=== PATIENT | female | born 1960 | race Caucasian/White ===

== ENCOUNTER 2018-03-15 08:29 | Inpatient (IN) ==
[2018-03-15] MEDS ORDERED: SODIUM CHLORIDE 0.9% 1000ML 2,000 ML IV ONE (08:37)
[2018-03-15] MEDS ORDERED: methylPREDNISolone 125 MG/2 ML VIAL IV STA (08:37)
[2018-03-15] MEDS ORDERED: ALBUT/IPRATROP 3MG/0.5MG NEB 3 ML VIAL NEB ONE (08:37)
[2018-03-15] MEDS ORDERED: ALBUT/IPRATROP 3MG/0.5MG NEB 3 ML VIAL ONE (08:40)
[2018-03-15] MEDS ORDERED: RAPID SEQUENCE INDUCTION BAG ONE (08:46)
[2018-03-15] MEDS ORDERED: KETAMINE HCL INJ 50 MG/ML 10 ML VIAL IV STA (08:48)
[2018-03-15 08:57] LABS: Basophils # (auto) 0.02 K/uL (0-0.2); Basophils % (auto) 0.2 %; Eosinophils # (auto) 0.01 K/uL (0-0.5); Eosinophils % (auto) 0.1 %; Hematocrit (blood only) 33.1 % (37-47); Hemoglobin 10.8 g/dL (12.0-16.0); Immature Granulocytes # (auto) 0.05 K/uL (0.00-0.02); Immature Granulocytes % (auto) 0.4 %; Lymphocytes # (auto) 1.51 K/uL (1.2-3.4); Lymphocytes % (auto) 11.7 %; Mean Corpuscular Hgb Conc 32.6 g/dL (32-36); Mean Corpuscular Volume 97.1 fL (80-100); Mean Platelet Volume 9.5 fL (7.4-10.4); Monocytes # (auto) 1.44 K/uL (0.11-0.59); Monocytes % (auto) 11.1 %; Neutrophils # (auto) 9.89 K/uL (1.4-6.5); Neutrophils % (auto) 76.5 %; Platelet Count 314 K/uL (130-400); RDW Coefficient of Variation 13.8 % (11.5-14.5); RDW Standard Deviation 48.9 fL (36.4-46.3); Red Blood Count 3.41 M/uL (4.2-5.4); White Blood Count 12.92 K/uL (4.8-10.8)
[2018-03-15] MEDS ORDERED: AZITHROMYCIN 500 MG/255 ML BAG IV ONE (08:58)
[2018-03-15] MEDS ORDERED: CEFEPIME 1,000 MG in SYRINGE 0 ML IV STA (08:58)
[2018-03-15] MEDS ORDERED: MIDAZOLAM HCL 5 MG/ML VIAL IV ONE (09:03)
[2018-03-15] MEDS ORDERED: KETAMINE HCL INJ 50 MG/ML 10 ML VIAL IV ONE (09:03)
--- NOTE | 2018-03-15 09:05 | XRay Report ---
XR chest 1V portable CLINICAL HISTORY: Sepsis. COMPARISON STUDY: No previous studies for comparison. FINDINGS: There is no pneumothorax or pleural effusion. There is no consolidation or evidence for pul monary edema. Cardiac size is normal. Mediastinal contours are normal. A 9 mm nodular density project s over the left lower lung. There is possible underlying emphysema. IMPRESSION: 1. No acute cardiopulmonary findings. 2. Possible underlying emphysema. 3. 9 mm nodular density which projects over the left lower lung. This favors a nipple shadow however a pulmonary nodule could appear similar. Nonemergent PA and shallow oblique radiographs of the chest are recommended. Electronically signed by: Moreno Fernandes M.D. 03/15/2018 9:04 AM
[2018-03-15 09:09] LABS: INR 0.9 (0.9-1.1); Partial Thromboplastin Time 25.7 Seconds (21.0-31.0); Prothrombin Time 9.4 Seconds (9.0-12.0)
[2018-03-15 09:11] LABS: Alanine Aminotransferase 13 U/L (12-78); Albumin Level 3.2 gm/dl (3.4-5.0); Aspartate Aminotransferase 12 U/L (15-37); BUN Creatinine Ratio 16.3 (10-20); Bilirubin Direct < 0.1 mg/dl (0-0.2); Blood Urea Nitrogen 11 mg/dl (7-18); Calcium 8.1 mg/dl (8.5-10.1); Carbon Dioxide 26 mmol/L (21-32); Chloride 104 mmol/L (98-107); Creatinine Clr Calc Pharmacy 69.9 ml/min; Est GFR (African American) 113.1; Est GFR (Non-African American) 97.6; Glucose 110 mg/dl (70-99); Magnesium 2.2 mg/dl (1.8-2.4); Potassium 4.2 mmol/L (3.5-5.1); Sodium 138 mmol/L (136-145)
[2018-03-15] MEDS ORDERED: MIDAZOLAM HCL 5 MG/ML 1 ML VIAL IV STA (09:12)
[2018-03-15 09:18] LABS: iSTAT Arterial Blood Gas HCO3 25 meg/L (19-24); iSTAT Carbon Dioxide 27 mEq/l (24-31)
[2018-03-15 09:18] LABS: iSTAT Hemoglobin 10.9 g/dl (12.0-16.0); iSTAT Ionized Calcium 1.18 mmol/l (1.12-1.32)
[2018-03-15 09:33] LABS: Albumin Globulin Ratio 0.8 (0.9-2); Alkaline Phosphatase 48 U/L (45-117); Bilirubin,Total 0.3 mg/dl (0.2-1); NT Pro B Type Natriuretic Pept 234 pg/ml (0-900); Phosphorus 3.1 mg/dl (2.5-4.9); Total Protein 7.2 gm/dl (6.4-8.2); Troponin I 0.156 ng/ml (0-0.045)
[2018-03-15] MEDS ORDERED: CEFEPIME 2,000 MG/20 ML VIAL ONE (09:33)
[2018-03-15] MEDS: MAGNESIUM SULFATE / D5W 1 GM/100 ML BAG IV SCH ×2 (09:34→11:10)
--- NOTE | 2018-03-15 10:31 | History & Physical Report ---
Date of Service March 15, 2018 Assessment & Plan (1) Acute respiratory failure with hypoxia and hypercapnia: This is a 57yo F with PMH of COPD and anxiety who presents with shortness of breath and acute respiratory failure. -Initially hypertensive at 153/117, tachycardic at 118, tachypneic at 45 and febrile at 37.7 -ABG with mild respiratory acidosis: pH 7.32, pCO2: 49, HCO3: 25 -Placed on BiPAP with improved respiratory status -Transitioned to nasal cannula and is saturating well at 96% on 3 L NC -Assistant Merchandise Manager to manage in ICU for now (2) COPD exacerbation: Mild leukocytosis at 12.5k, normal lactic acid, Flu PCR negative -CXR without evidence of infiltrates -History of COPD, recently quit smoking -Received cefepime and azithromycin in ED -Will continue abx coverage with ceftriaxone and azithromycin, per Dr. Milan -Adelita-medrol 40mg Q6H, Duonebs QIDR, Symbicort -Will need to establish out-patient pulm upon discharge (3) NSTEMI (non-ST elevated myocardial infarction): Troponin elevated at 0.156 initially in the setting of respiratory distress -Likely 2/2 demand ischemia -EKG with sinus tachycardia, possible ST depression in anterolateral leads -Denies chest pain on exam -Trend troponin Q6H -Echo ordered DVT Ppx: SQ heparin Code status: FULL PCP: In transition of moving to [place]. Will need to establish care. Dispo: Admitted to ICU. Discharge planning ordered. Patient seen in collaboration with Dr. Villalpando. Please see addendum. History of Present Illness Chief Complaint: Respiratory failure Primary Care Provider: NO PCP This is a 57yo F with PMH of COPD and anxiety who presents with shortness of breath and acute respiratory failure. Obtained history from boyfriend at bedside since patient is on BiPAP. Patient has been reporting flu-like symptoms for one week and started to experience dyspnea on exertion yesterday. Was reportedly unable to ambulate in home due to shortness of breath. Boyfriend came back from work this morning at 7am and found patient wheezing and in respiratory distress, so he called EMS and patient was brought to ED for further evaluation. Patient in the process of moving from [place] to [place] so has yet to establish a PCP here. Unable to provide current medication list during interview but boyfriend is working to obtain a list. Reportedly stopped smoking cigarettes 3 weeks ago. Endorsing fever, chills, cough, dyspnea on exertion, wheezing and feeling anxious. Denies any confusion, chest pain or palpitations. Allergies Allergy/AdvReac Type Severity Reaction Status Date / Time No Known Allergies Allergy Unverified 03/15/18 09:16 Home Medications Home Medications Medication Instructions Recorded Confirmed Type albuterol sulfate [Ventolin HFA] 2 puff INHALATION QID PRN 03/15/18 03/15/18 History budesonide-formoterol [Symbicort] 2 puff INHALATION BID 03/15/18 03/15/18 History cholecalciferol (vitamin D3) 1,000 unit PO DAILY 03/15/18 03/15/18 History [Vitamin D3] gabapentin 300 mg PO QID 03/15/18 03/15/18 History Past Med/Surg History Medical History COPD (chronic obstructive pulmonary disease) (Chronic) Anxiety (Chronic) Chronic back pain (Chronic) Surgical History H/O hernia repair (Resolved) Family History Other Family history non-contributory Social History marital status: Current Living Situation: Significant Other Other Information That Helps Us Care for You: No Feels Safe at Home: Yes Safety Concerns: Feels Safe At This Time Smoking Status: Current some day smoker Tobacco Type: cigarettes Cigarettes per Day: occasional use Second Hand Exposure: Yes Tobacco Cessation Education Requested by Patient: No Hx Alcohol Use: Yes Alcohol type: beer and wine Alcohol Intake Frequency: a few times a month Hx Substance Use: No Beliefs That Will Affect Care: None Preferred Language: Cameroonian Communication Ability: Effective Suspender Maker Required: No Review of Systems All systems reviewed & are unremarkable except as noted in HPI & below Physical Exam 2 Vital Signs (Past 24 Hours): Last Vital Signs Temp 37.7 C H 03/15/18 08:40 Pulse 121 H 03/15/18 10:04 Resp 32 H 03/15/18 10:04 BP 134/78 03/15/18 09:51 Pulse Ox 100 03/15/18 10:04 Physical Exam: General Appearance: WD/WN, in distress from acute illness, anxious wearing BiPAP Head: normocephalic, atraumatic Eyes: normal inspection, PERRL, EOMI ENT: hearing grossly normal, pharynx normal Neck: supple, no JVD, no adenopathy Respiratory/Chest: Diffuse expiratory wheezes and rhonci in bilateral lung gale. No rales. +respiratory distress or accessory muscle use when speaking Cardiovascular: tachycardic, regular rhythm, no murmur, normal peripheral pulses Abdomen/GI: normal bowel sounds, soft, non-tender to palpation Extremities/Musculoskelatal: normal inspection, no calf tenderness, normal capillary refill, no pedal edema Neurologic/Psych: alert, normal mood/affect, oriented x 3 Skin: normal color, warm/dry Results & Data Laboratory Results Short CBC 03/15/18 Range/Units 08:40 WBC 12.92 H (4.8-10.8) K/uL Hgb 10.8 L (12.0-16.0) g/dL Hct 33.1 L (37-47) % Plt Count 314 (130-400) K/uL BMP 03/15/18 08:40 Sodium 138 Potassium 4.2 Chloride 104 Carbon Dioxide 26 BUN 11 Creatinine 0.67 Glucose 110 H Calcium 8.1 L Cardiac Enzymes 03/15/18 Range/Units 08:40 Troponin I 0.156 H* (0-0.045) ng/ml Liver Function 03/15/18 Range/Units 08:40 Total Bilirubin 0.3 (0.2-1) mg/dl Direct Bilirubin < 0.1 (0-0.2) mg/dl AST 12 L (15-37) U/L ALT 13 (12-78) U/L Alkaline Phosphatase 48 (45-117) U/L Albumin 3.2 L (3.4-5.0) gm/dl Diagnostic Findings CXR: IMPRESSION: 1. No acute cardiopulmonary findings. 2. Possible underlying emphysema. 3. 9 mm nodular density which projects over the left lower lung. This favors a nipple shadow however a pulmonary nodule could appear similar. Non-emergent PA and shallow oblique radiographs of the chest are recommended. ECG Rhythm: sinus tachycardia Code Status & VTE Plan Code Status FULL VTE Prophylaxis Plan VTE Prophylaxis will be ordered: Yes Supervising Physician Co-Signing Physician Notes Attending addendum The patient was seen and examined in ICU She denies to have any chest pain or palpitation. No abdominal pain, nausea and /or vomiting She has history of severe COPD and anxiety disorder was admitted with acute exacerbation of COPD She required BiPAP in the ER and she was admitted to ICU No pneumonia noted in chest x-ray On examination Moderate distress at rest Saturating well all with BiPAP Hemodynamically stable Chest-decreased breath sounds all over. Minimal wheezing Heart-S1-S2, regular Abdomen-benign Extremities-negative Admission labs and imaging studies noted Has severe COPD with respiratory failure secondary to infective exacerbation Agree with assessment and plan as outlined above by Benita Villalpando
[2018-03-15 10:35] LABS: Influenza A virus by PCR Neg for Influ A (Neg); Influenza B virus by PCR Neg for Influ B (Neg)
[2018-03-15] MEDS ORDERED: ICU PROTOCOL FOR HYPERGLYCEMIA PRN (10:48)
[2018-03-15 11:43] LABS: Appearance Urine Clear (Clear); Bilirubin Urine Negative (Negative); Color Urine Yellow; Glucose Urine UA 3+ (Negative); Ketones Urine Negative (Negative); Leukocyte Esterase Urine Negative (Negative); Nitrite Urine Negative (Negative); Protein Urine Negative (Negative); Urobilinogen Urine Negative (Negative)
[2018-03-15] MEDS ORDERED: cefTRIAXone SODIUM 1,000 MG in DEXTROSE 5% 50 ML IV SCH (12:00)
[2018-03-15] MEDS ORDERED: INFLUENZA ADMINISTRATION CHARGE ONE (12:45)
[2018-03-15] MEDS ORDERED: INFLUENZA VIRUS QUAD VACCINE 0.5 ML SYR IM ONE (12:45)
[2018-03-15] MEDS: BUDESONIDE/FORMOTEROL FUMARATE 160/4.5 60 PUFFS/INHALER INH SCH ×2 (13:08→21:30)
[2018-03-15] MEDS: HEPARIN SOD 5,000 UNIT/0.5 ML VIAL SQ SCH ×2 (14:01→21:30)
[2018-03-15] MEDS: ALBUT/IPRATROP 3MG/0.5MG NEB 3 ML VIAL NEB SCH ×4 (14:02→23:09)
--- NOTE | 2018-03-15 14:06 | Critical Care Consultation ---
Date of Consultation March 15, 2018 Assessment & Plan (1) COPD (chronic obstructive pulmonary disease): Impression: 1. Acute hypoxic and hypercapnic respiratory failure secondary to COPD exacerbation. 2. Acute exacerbation of COPD, gold level 2, patient active smoker, grade B. 3. Non-ST elevation VT, possible type II. 4. Likely patient has cor pulmonale, bicarb and PCO2 are both elevated. 5. Anxiety and claustrophobia, cannot tolerate BiPAP very well. Plan: 1. I would discontinue the BiPAP for now. 2. Start the patient on high dose of steroids 1 mg/kg per dose every 6 hours. 3. Continue ceftriaxone and azithromycin. 4. Repeat chest x-ray in the morning. 5. Oral intake. 6. GI and DVT prophylaxis. 7. Since the patient cannot tolerate the BiPAP, I would take her off, I doubt that she would escalate at this point to needing mechanical ventilation. 8. Start the patient on Symbicort 2 puffs twice daily. 9. Continue with DuoNeb on a regular basis every 4 hours. 10. She will need outpatient follow-up with pulmonary function test if she desires. 11. Discussed with the patient, the family, the staff, and Dr. Villalpando at the bedside. 12. We will trend the troponin and obtain echocardiogram. Critical care time spent with the patient was 60 minutes. History of Present Illness Reason for Consultation: Acute respiratory failure Requesting Physician: Dr. Villalpando Attending Physician: Allison Villalpando MD History of Present Illness Dear data: Thank you for the kind referral of Mrs. Beauchamp to critical care service. This is a 57-year-old female who is active smoker, with history of COPD, has been maintained on inhalers which she does not remember the name of them, has been doing well up until 4 days ago when she started having increasing cough and shortness of breath. Up until today when she started having increasing shortness of breath to the point that she has to come into the ED, in the ED the patient was found to be extremely short of breath and she has to be placed on the BiPAP, she could not tolerate the BiPAP due to claustrophobia, was given a dose of ketamine for relaxation. The patient was given steroids as well as azithromycin and ceftriaxone and admitted to the ICU for further management. When I interviewed the patient, she was bothered with the BiPAP as well, her respiratory status has improved and we took her off the BiPAP and she tolerated nasal cannula nicely. Her respiratory rate has been variable, O2 saturation has been maintained, she denies previous episodes like this in the past. She did have an admission to the hospital due to COPD exacerbation over a year ago. The patient is active smoker and she has been using Chantix to quit smoking. She denies any nausea or vomiting but she did have chest heaviness that started today. Her dyspnea on exertion was limited to only less than a block. Her was at the bedside and confirmed these findings. No hemoptysis and no sputum production was reported. No abdominal pain, change in bowel movements or urine habits, no increased swelling in her lower extremities, neurologically she is intact, no visual disturbances and no headache, no skin changes and no swelling in any joints. Rest of her review of system was unremarkable. Her past medical history significant for COPD, active smoker, claustrophobia and anxiety. Her family history does not contribute to her current illness. She had more than [id number] history of smoking, and she does not have any industrial exposure. Allergies Allergy/AdvReac Type Severity Reaction Status Date / Time No Known Allergies Allergy Unverified 03/15/18 09:16 Home Medications Home Medications Medication Instructions Recorded Confirmed Type Unobtainable 03/15/18 03/15/18 History Patient History Medical History COPD (chronic obstructive pulmonary disease) (Chronic) Anxiety (Chronic) Social History marital status: Current Living Situation: Significant Other Other Information That Helps Us Care for You: No Feels Safe at Home: Yes Safety Concerns: Feels Safe At This Time Smoking Status: Current some day smoker Tobacco Type: cigarettes Cigarettes per Day: occasional use Second Hand Exposure: Yes Tobacco Cessation Education Requested by Patient: No Hx Alcohol Use: Yes Alcohol type: beer and wine Alcohol Intake Frequency: a few times a month Hx Substance Use: No Beliefs That Will Affect Care: None Preferred Language: Slovak Communication Ability: Effective Reel System Operator Required: No Review of Systems Review of system including 14 systems has been reviewed, unremarkable except for the above. Physical Exam 2 Vital Signs (Past 24 Hours): Last Vital Signs Temp 36.9 C 03/15/18 11:30 Pulse 104 H 03/15/18 12:00 Resp 45 H 03/15/18 12:00 BP 117/73 03/15/18 12:00 Pulse Ox 97 03/15/18 12:00 Physical Exam: Vital signs are stable, S1-S2 regular rate and rhythm, no fever , O2 sats 97% on 3 L, no JVP, no stridor, lungs with wheezing bilaterally, abdomen is benign, no edema. Results & Data Laboratory Results Her labs were reviewed which showed leukocytosis, stable hematocrit, she does have mild bandemia and left shift, her ABG showed 7.3 2/49/193/25, and her BMP is normal. Troponin is elevated at 0.15. Diagnostic Findings EKG showed ST depression in anterolateral leads, chest x-ray showed hyperinflated lungs no significant infiltrate. Microbiology profile showed negative influenza a and B.
--- NOTE | 2018-03-15 14:32 | Emergency Department Note ---
Entered by Albina Vang acting as a scribe for History of Present Illness General Chief complaint: Respiratory Distress Source: patient and EMS Mode of arrival: EMS Limitations: other (respiratory failure) History of Present Illness Provider complaint: Respiratory distress Onset (ago): hour(s) (this morning) Location: mouth and chest Pain Consistency: + other (worsening) Quality: + other (respiratory distress) Relieved By: + none Associated symptoms: + diaphoresis, + fever/chills, + shortness of breath and + other (Additional symptoms: anxiety, hot to the touch, body aches) The patient is a 57 year old female with no significant past medical history who presents to the Emergency Room with complaints of worsening respiratory distress starting this morning. EMS suspects that the patient began feeling short of breath around 0400 today and took a nebulizer treatment with no relief. They report that she subsequently tried to go to the bathroom but "ran out of steam" on the way there. They note that she did not fall to the ground. The patient's spouse reportedly found the patient lying in the hallway when he returned home from work. Per EMS, the patient was very anxious and hot to the touch upon arrival at the scene. EMS states that the patient has been complaining of body aches, fevers, chills, and diaphoresis for the past 4 days. They note that she takes nebulizers and uses inhalers but is not normally on O2 at home. The patient reports that she did not receive the flu shot this year and has not smoked for the past 2 months. HPI limited secondary to respiratory failure. Home Medications Home Medications Medication Instructions Recorded Confirmed Type albuterol sulfate [Ventolin HFA] 2 puff INHALATION QID PRN 03/15/18 03/15/18 History budesonide-formoterol [Symbicort] 2 puff INHALATION BID 03/15/18 03/15/18 History cholecalciferol (vitamin D3) 1,000 unit PO DAILY 03/15/18 03/15/18 History [Vitamin D3] gabapentin 300 mg PO QID 03/15/18 03/15/18 History Allergies Allergy/AdvReac Type Severity Reaction Status Date / Time No Known Allergies Allergy Unverified 03/15/18 09:16 Past Med/Surg History Medical History COPD (chronic obstructive pulmonary disease) (Chronic) Anxiety (Chronic) Chronic back pain (Chronic) Surgical History H/O hernia repair (Resolved) Family History Other Family history non-contributory Social History marital status: Current Living Situation: Significant Other Other Information That Helps Us Care for You: No Feels Safe at Home: Yes Safety Concerns: Feels Safe At This Time Smoking Status: Current some day smoker Tobacco Type: cigarettes Cigarettes per Day: occasional use Second Hand Exposure: Yes Tobacco Cessation Education Requested by Patient: No Hx Alcohol Use: Yes Alcohol type: beer and wine Alcohol Intake Frequency: a few times a month Hx Substance Use: No Beliefs That Will Affect Care: None Preferred Language: [place] Communication Ability: Effective Airport Screener Required: No Review of Systems Other (Limited secondary to respiratory failure) Physical Exam Vital Signs Vital Signs - 24 hr 03/15/18 08:40 03/15/18 08:53 03/15/18 08:55 Temperature 37.7 C H Temperature Source Axillary Sepsis Recent Fever Within 48 Hours Yes Sepsis New/Unexplained Change in Mental Status No Sepsis Action Taken by Nursing No Action Required Pulse Rate 118 H 111 H Pulse Rate [Apical] Pulse Rhythm Regular Pulse Rhythm [Apical] Pulse Strength Normal Pulse Strength [Apical] Respiratory Rate 45 H 27 H Respiratory Effort / Characteristics Accessory Muscle Use Gasping/Agonal Spontaneous Accessory Muscle Use Labored Short of Breath Respiratory Depth Shallow Deep Respiratory Pattern Gasping Rapid/Shallow Rapid/Deep Tachypnea Blood Pressure Blood Pressure [Left Arm] Blood Pressure Mean Blood Pressure Mean [Left Arm] Blood Pressure Position Lying Blood Pressure Position [Left Arm] Pulse Oximetry 97 99 Oxygen Delivery Method CPAP Oxygen Flow Rate Fraction of Inspired Oxygen 40 30 03/15/18 09:08 03/15/18 09:11 03/15/18 09:29 Temperature Temperature Source Sepsis Recent Fever Within 48 Hours Sepsis New/Unexplained Change in Mental Status Sepsis Action Taken by Nursing Pulse Rate Pulse Rate [Apical] 111 H Pulse Rhythm Pulse Rhythm [Apical] Regular Pulse Strength Pulse Strength [Apical] Normal Respiratory Rate 28 H 24 36 H Respiratory Effort / Characteristics Respiratory Depth Shallow Shallow Respiratory Pattern Regular Regular Blood Pressure Blood Pressure [Left Arm] 153/117 H Blood Pressure Mean Blood Pressure Mean [Left Arm] 129 Blood Pressure Position Blood Pressure Position [Left Arm] Pulse Oximetry 98 98 100 Oxygen Delivery Method BiPAP BiPAP BiPAP Oxygen Flow Rate Fraction of Inspired Oxygen 40 03/15/18 09:51 03/15/18 10:04 03/15/18 10:42 Temperature Temperature Source Sepsis Recent Fever Within 48 Hours Sepsis New/Unexplained Change in Mental Status Sepsis Action Taken by Nursing Pulse Rate 121 H 119 H Pulse Rate [Apical] 126 H Pulse Rhythm Pulse Rhythm [Apical] Regular Pulse Strength Pulse Strength [Apical] Normal Respiratory Rate 32 H 32 H 36 H Respiratory Effort / Characteristics Spontaneous Accessory Muscle Use Labored Short of Breath Respiratory Depth Shallow Deep Respiratory Pattern Regular Rapid/Deep Tachypnea Blood Pressure Blood Pressure [Left Arm] 134/78 Blood Pressure Mean Blood Pressure Mean [Left Arm] 96 Blood Pressure Position Blood Pressure Position [Left Arm] Pulse Oximetry 100 100 99 Oxygen Delivery Method BiPAP BiPAP Oxygen Flow Rate Fraction of Inspired Oxygen 30 03/15/18 11:30 03/15/18 12:00 03/15/18 13:01 Temperature 36.9 C Temperature Source Oral Sepsis Recent Fever Within 48 Hours Sepsis New/Unexplained Change in Mental Status Sepsis Action Taken by Nursing Pulse Rate 104 H 111 H Pulse Rate [Apical] 104 H Pulse Rhythm Pulse Rhythm [Apical] Regular Pulse Strength Pulse Strength [Apical] Normal Respiratory Rate 37 H 45 H 33 H Respiratory Effort / Characteristics Spontaneous Short of Breath SOB on Exertion Respiratory Depth Normal Respiratory Pattern Tachypnea Blood Pressure 117/73 95/84 L Blood Pressure [Left Arm] 104/77 Blood Pressure Mean 87 87 Blood Pressure Mean [Left Arm] 86 Blood Pressure Position Blood Pressure Position [Left Arm] Lying Pulse Oximetry 96 97 96 Oxygen Delivery Method Nasal Cannula Oxygen Flow Rate 3 Fraction of Inspired Oxygen 03/15/18 14:00 03/15/18 15:35 03/15/18 20:00 Temperature 37.6 C H Temperature Source Oral Sepsis Recent Fever Within 48 Hours Sepsis New/Unexplained Change in Mental Status Sepsis Action Taken by Nursing Pulse Rate 92 H Pulse Rate [Apical] 95 H 81 Pulse Rhythm Pulse Rhythm [Apical] Regular Pulse Strength Pulse Strength [Apical] Respiratory Rate 15 24 26 H Respiratory Effort / Characteristics Spontaneous Spontaneous Labored Short of Breath SOB on Exertion Respiratory Depth Shallow Respiratory Pattern Tachypnea Blood Pressure 106/69 Blood Pressure [Left Arm] 115/76 Blood Pressure Mean 81 Blood Pressure Mean [Left Arm] 89 Blood Pressure Position Blood Pressure Position [Left Arm] Pulse Oximetry 96 98 98 Oxygen Delivery Method Nasal Cannula Nasal Cannula Oxygen Flow Rate 3 3 Fraction of Inspired Oxygen GENERAL: Awake, alert, severe respiratory distress HENT: Normocephalic, atraumatic. Oropharynx with dry/cracked mucous membranes and otherwise unremarkable. . EYES: Normal conjunctiva. Sclera non-icteric. NECK: Supple. No nuchal rigidity. FROM. No JVD. RESPIRATORY: Diminished breath sounds throughout with prolonged expiratory wheeze. Labored breathing with retractions. CARDIAC: Tachycardic rate, normal rhythm. Extremities warm and well perfused. Pulses equal. ABDOMEN: Soft, non-distended. No tenderness to palpation. No rebound or guarding. No masses. RECTAL: Deferred. MUSCULOSKELETAL: Chest examination reveals no tenderness. The back is symmetrical on inspection without obvious abnormality. There is no CVA tenderness to palpation. No joint edema. LOWER EXTREMITIES: Calves are equal size bilaterally and non-tender. No edema. No discoloration. NEURO: Normal sensorium. No sensory or motor deficits noted. SKIN: No rash or jaundice noted. Course 0829: Past medical records reviewed. The patient was evaluated in room B1, and a complete history and physical examination were performed. 0908: I checked on the patient and she claimed that she is seeing "jelly beans floating around" at the moment. 0911: The nurse informed me that the patient refused to keep her breathing mask on, so I checked on the patient. 0912: I reviewed the patient's case with Sara De Anda. Dr. Milan will evaluate the patient for management in the ICU. 0922: Upon reevaluation, the patient is resting. I discussed the findings and the treatment plan with the her. She expresses agreement and understanding. 0928: I reviewed the patient's case with Gilberto Galvan PA-C. Benita will evaluate the patient for admission. Consultations Consultation #1: I reviewed the patient's case with Sara De Anda. Dr. Milan will evaluate the patient for further management. Time: 09:12 Consultation #2: I reviewed the patient's case with Gilberto Galvan PA-CAmari Joy will evaluate the patient for admission. Time: 09:28 Administered Medications Hydrocodone Bitart/Acetaminophen ([place] 5/325) 1 tab PO HS PRN PRN Reason: Pain Stop: 03/29/18 21:17 Last Admin: 03/15/18 21:29 Dose: 1 tab Albuterol (Duoneb) 3 ml NEB Q4R STELLA Stop: 04/14/18 11:59 Last Admin: 03/15/18 19:57 Dose: 3 ml Admin: 03/15/18 15:20 Dose: 3 ml Admin: 03/15/18 14:02 Dose: Not Given Budesonide/Formoterol Fumarate (Symbicort 160mcg/4.5mcg) 2 puffs INH BID STELLA Stop: 04/14/18 11:44 Last Admin: 03/15/18 21:30 Dose: 2 puffs Admin: 03/15/18 13:08 Dose: 2 puffs Gabapentin (Neurontin) 300 mg PO TID STELLA Stop: 04/14/18 20:59 Last Admin: 03/15/18 19:33 Dose: 300 mg Heparin Sodium (Porcine) (Heparin Sodium (Porcine)) 5,000 units SQ Q8 STELLA Stop: 04/14/18 13:59 Last Admin: 03/15/18 21:30 Dose: 5,000 units Admin: 03/15/18 14:01 Dose: 5,000 units Methylprednisolone 60 mg/ (Syringe) 0.96 mls @ 1.5 mls/min IV Q6H STELLA Stop: 04/14/18 15:59 Last Admin: 03/15/18 21:59 Dose: 1.5 mls/min Admin: 03/15/18 15:49 Dose: 1.5 mls/min Ceftriaxone Sodium 1,000 mg/ (Dextrose) 50 mls @ 100 mls/hr IV Q24H STELLA; Protocol Stop: 03/22/18 11:59 Last Infusion: 03/15/18 13:11 Dose: 0 mls/hr Admin: 03/15/18 12:16 Dose: 100 mls/hr Discontinued Medications Albuterol (Duoneb) 12 ml NEB ONE ONE Stop: 03/15/18 08:38 Last Admin: 03/15/18 09:42 Dose: Not Given Albuterol (Duoneb) Confirm Administered Dose 12 ml .ROUTE .STK-MED ONE Stop: 03/15/18 08:41 Last Admin: 03/15/18 09:43 Dose: Not Given Cefepime HCl (Maxipime) Confirm Administered Dose 2,000 mg .ROUTE .STK-MED ONE Stop: 03/15/18 09:34 Last Admin: 03/15/18 09:44 Dose: Not Given Sodium Chloride (Nss 1000ml) 2,000 mls @ 999 mls/hr IV .Q2H1M ONE Stop: 03/15/18 10:37 Last Infusion: 03/15/18 10:50 Dose: 0 mls/hr Admin: 03/15/18 08:53 Dose: 999 mls/hr Azithromycin (Zithromax) 500 mg in 255 mls @ 127.5 mls/hr IV NOW ONE Stop: 03/15/18 10:57 Last Infusion: 03/15/18 11:38 Dose: 0 mls/hr Admin: 03/15/18 09:24 Dose: 127.5 mls/hr Cefepime HCl 1,000 mg/ Syringe 11.3 mls @ 5.5 mls/min IV NOW STA Stop: 03/15/18 09:00 Last Admin: 03/15/18 09:34 Dose: 5.5 mls/min Magnesium Sulfate/Dextrose (Magnesium Sulfate / D5w) 1 gm in 100 mls @ 100 mls/ hr IV Q1H STELLA Stop: 03/15/18 11:14 Last Infusion: 03/15/18 12:14 Dose: 0 mls/hr Admin: 03/15/18 11:10 Dose: 100 mls/hr Infusion: 03/15/18 10:34 Dose: 100 mls/hr Admin: 03/15/18 09:34 Dose: 100 mls/hr Ketamine HCl (Ketalar Steri-Vial) 75 mg IV NOW STA Stop: 03/15/18 08:49 Last Admin: 03/15/18 08:52 Dose: 75 mg Methylprednisolone (Solumedrol) 125 mg IV NOW STA Stop: 03/15/18 08:38 Last Admin: 03/15/18 08:57 Dose: 125 mg Midazolam HCl (Versed) 1 mg IV NOW STA Stop: 03/15/18 09:13 Last Admin: 03/15/18 09:19 Dose: 1 mg Miscellaneous () Confirm Administered Dose 1 ea .ROUTE .Pro Stream +-Wyst ONE Stop: 03/15/18 08:47 Last Admin: 03/15/18 09:43 Dose: 1 ea Medical Decision Making Differential Diagnosis Differential diagnosis: Etiologies such as infections, reactive airway disease, COPD, pneumonia, pleural effusion, pulmonary edema, ARDS, pneumothorax, CHF, cardiac ischemia, cardiac tamponade, dysrhythmia, anemia, pulmonary embolism, musculoskeletal, gastrointestinal process, as well as others were entertained. Medical Records Attestation: I reviewed the patient's medical records. Home Medications Current Medication List: was personally reviewed by me Laboratory Data Attestation: I reviewed the patient's lab results. Result diagrams: 03/15/18 08:40 03/15/18 08:40 Lab Results 03/15/18 03/15/18 03/15/18 Range/Units 08:40 08:40 08:40 WBC 12.92 H (4.8-10.8) K/uL RBC 3.41 L (4.2-5.4) M/uL Hgb 10.8 L (12.0-16.0) g/dL POC Hgb (12.0-16.0) g/dl Hct 33.1 L (37-47) % POC Hct (37-47) % MCV 97.1 (80-100) fL MCH 31.7 (25-34) pg MCHC 32.6 (32-36) g/dL RDW Std Deviation 48.9 H (36.4-46.3) fL RDW Coeff of Jose 13.8 (11.5-14.5) % Plt Count 314 (130-400) K/uL MPV 9.5 (7.4-10.4) fL Immature Gran % (Auto) 0.4 % Neut % (Auto) 76.5 % Lymph % (Auto) 11.7 % Burke % (Auto) 11.1 % Eos % (Auto) 0.1 % Baso % (Auto) 0.2 % Immature Gran # (Auto) 0.05 H (0.00-0.02) K/uL Neut # (Auto) 9.89 H (1.4-6.5) K/uL Lymph # (Auto) 1.51 (1.2-3.4) K/uL Burke # (Auto) 1.44 H (0.11-0.59) K/uL Eos # (Auto) 0.01 (0-0.5) K/uL Baso # (Auto) 0.02 (0-0.2) K/uL PT 9.4 (9.0-12.0) Seconds INR 0.9 (0.9-1.1) APTT 25.7 (21.0-31.0) Seconds PTT Ratio 1.0 POC pH (7.35-7.45) POC pCO2 (35-46) mmHg POC pO2 (80-95) mmHg POC HCO3 (19-24) parish/L POC Base Excess (-9-1.8) parish/L POC ABG O2 Sat (90-95) % POC Sodium (135-144) mEq/L Sodium (136-145) mmol/L POC Potassium (3.3-5.0) mEq/L Potassium (3.5-5.1) mmol/L POC Chloride (101-112) mEq/L Chloride (98-107) mmol/L Carbon Dioxide (21-32) mmol/L POC Total CO2 (24-31) mEq/l Anion Gap (3-11) POC Anion Gap (16-25) mmol/L POC BUN (7-18) mg/dl BUN (7-18) mg/dl Creatinine (0.6-1.2) mg/dl POC Creatinine (0.6-1.3) mg/dl Est Cr Clr Drug Dosing ml/min Est GFR ( Amer) Est GFR (Non-Af Amer) BUN/Creatinine Ratio (10-20) Glucose (70-99) mg/dl POC Glucose (70-99) POC Glucose (other) (70-99) mg/dl Lactate 1.1 (0.4-2.0) mmol/L Calcium (8.5-10.1) mg/dl POC Ioniz Calcium Lucy (1.12-1.32) mmol/l Phosphorus (2.5-4.9) mg/dl Magnesium (1.8-2.4) mg/dl Total Bilirubin (0.2-1) mg/dl Direct Bilirubin (0-0.2) mg/dl AST (15-37) U/L ALT (12-78) U/L Alkaline Phosphatase (45-117) U/L Troponin I (0-0.045) ng/ml NT-Pro-B Natriuret Pep (0-900) pg/ml Total Protein (6.4-8.2) gm/dl Albumin (3.4-5.0) gm/dl Globulin (2.5-4.0) gm/dl Albumin/Globulin Ratio (0.9-2) TSH (0.300-4.500) uIu/ml Urine Color Urine Appearance (Clear) Urine pH (4.5-7.5) Ur Specific [place] (1.000-1.030) Urine Protein (Negative) Urine Glucose (UA) (Negative) Urine Ketones (Negative) Urine Blood (Negative) Urine Nitrite (Negative) Urine Bilirubin (Negative) Urine Urobilinogen (Negative) Ur Leukocyte Esterase (Negative) Nasal Screen MRSA (PCR) (Negative) Influenza Type A (PCR) (Neg) Influenza Type B (PCR) (Neg) 03/15/18 03/15/18 03/15/18 Range/Units 08:40 08:51 09:02 WBC (4.8-10.8) K/uL RBC (4.2-5.4) M/uL Hgb (12.0-16.0) g/dL POC Hgb 10.9 L (12.0-16.0) g/dl Hct (37-47) % POC Hct 32 L (37-47) % MCV (80-100) fL MCH (25-34) pg MCHC (32-36) g/dL RDW Std Deviation (36.4-46.3) fL RDW Coeff of Jose (11.5-14.5) % Plt Count (130-400) K/uL MPV (7.4-10.4) fL Immature Gran % (Auto) % Neut % (Auto) % Lymph % (Auto) % Burke % (Auto) % Eos % (Auto) % Baso % (Auto) % Immature Gran # (Auto) (0.00-0.02) K/uL Neut # (Auto) (1.4-6.5) K/uL Lymph # (Auto) (1.2-3.4) K/uL Burke # (Auto) (0.11-0.59) K/uL Eos # (Auto) (0-0.5) K/uL Baso # (Auto) (0-0.2) K/uL PT (9.0-12.0) Seconds INR (0.9-1.1) APTT (21.0-31.0) Seconds PTT Ratio POC pH 7.32 L (7.35-7.45) POC pCO2 49 H (35-46) mmHg POC pO2 193 H (80-95) mmHg POC HCO3 25 H (19-24) parish/L POC Base Excess -1.0 (-9-1.8) parish/L POC ABG O2 Sat 100.0 H (90-95) % POC Sodium 139 (135-144) mEq/L Sodium 138 (136-145) mmol/L POC Potassium 4.1 (3.3-5.0) mEq/L Potassium 4.2 (3.5-5.1) mmol/L POC Chloride 103 (101-112) mEq/L Chloride 104 (98-107) mmol/L Carbon Dioxide 26 (21-32) mmol/L POC Total CO2 24 27 (24-31) mEq/l Anion Gap 8.0 (3-11) POC Anion Gap 17.0 (16-25) mmol/L POC BUN 10 (7-18) mg/dl BUN 11 (7-18) mg/dl Creatinine 0.67 (0.6-1.2) mg/dl POC Creatinine 0.6 (0.6-1.3) mg/dl Est Cr Clr Drug Dosing 69.9 ml/min Est GFR ( Amer) 113.1 Est GFR (Non-Af Amer) 97.6 BUN/Creatinine Ratio 16.3 (10-20) Glucose 110 H (70-99) mg/dl POC Glucose (70-99) POC Glucose (other) 110 H (70-99) mg/dl Lactate (0.4-2.0) mmol/L Calcium 8.1 L (8.5-10.1) mg/dl POC Ioniz Calcium Lucy 1.18 (1.12-1.32) mmol/l Phosphorus 3.1 (2.5-4.9) mg/dl Magnesium 2.2 (1.8-2.4) mg/dl Total Bilirubin 0.3 (0.2-1) mg/dl Direct Bilirubin < 0.1 (0-0.2) mg/dl AST 12 L (15-37) U/L ALT 13 (12-78) U/L Alkaline Phosphatase 48 (45-117) U/L Troponin I 0.156 H* (0-0.045) ng/ml NT-Pro-B Natriuret Pep 234 (0-900) pg/ml Total Protein 7.2 (6.4-8.2) gm/dl Albumin 3.2 L (3.4-5.0) gm/dl Globulin 4.0 (2.5-4.0) gm/dl Albumin/Globulin Ratio 0.8 L (0.9-2) TSH 2.760 (0.300-4.500) uIu/ml Urine Color Urine Appearance (Clear) Urine pH (4.5-7.5) Ur Specific [place] (1.000-1.030) Urine Protein (Negative) Urine Glucose (UA) (Negative) Urine Ketones (Negative) Urine Blood (Negative) Urine Nitrite (Negative) Urine Bilirubin (Negative) Urine Urobilinogen (Negative) Ur Leukocyte Esterase (Negative) Nasal Screen MRSA (PCR) (Negative) Influenza Type A (PCR) (Neg) Influenza Type B (PCR) (Neg) 03/15/18 03/15/18 03/15/18 Range/Units 09:45 15:13 15:54 WBC (4.8-10.8) K/uL RBC (4.2-5.4) M/uL Hgb (12.0-16.0) g/dL POC Hgb (12.0-16.0) g/dl Hct (37-47) % POC Hct (37-47) % MCV (80-100) fL MCH (25-34) pg MCHC (32-36) g/dL RDW Std Deviation (36.4-46.3) fL RDW Coeff of Jose (11.5-14.5) % Plt Count (130-400) K/uL MPV (7.4-10.4) fL Immature Gran % (Auto) % Neut % (Auto) % Lymph % (Auto) % Burke % (Auto) % Eos % (Auto) % Baso % (Auto) % Immature Gran # (Auto) (0.00-0.02) K/uL Neut # (Auto) (1.4-6.5) K/uL Lymph # (Auto) (1.2-3.4) K/uL Burke # (Auto) (0.11-0.59) K/uL Eos # (Auto) (0-0.5) K/uL Baso # (Auto) (0-0.2) K/uL PT (9.0-12.0) Seconds INR (0.9-1.1) APTT (21.0-31.0) Seconds PTT Ratio POC pH (7.35-7.45) POC pCO2 (35-46) mmHg POC pO2 (80-95) mmHg POC HCO3 (19-24) parish/L POC Base Excess (-9-1.8) parish/L POC ABG O2 Sat (90-95) % POC Sodium (135-144) mEq/L Sodium (136-145) mmol/L POC Potassium (3.3-5.0) mEq/L Potassium (3.5-5.1) mmol/L POC Chloride (101-112) mEq/L Chloride (98-107) mmol/L Carbon Dioxide (21-32) mmol/L POC Total CO2 (24-31) mEq/l Anion Gap (3-11) POC Anion Gap (16-25) mmol/L POC BUN (7-18) mg/dl BUN (7-18) mg/dl Creatinine (0.6-1.2) mg/dl POC Creatinine (0.6-1.3) mg/dl Est Cr Clr Drug Dosing ml/min Est GFR ( Amer) Est GFR (Non-Af Amer) BUN/Creatinine Ratio (10-20) Glucose (70-99) mg/dl POC Glucose 145 H (70-99) POC Glucose (other) (70-99) mg/dl Lactate (0.4-2.0) mmol/L Calcium (8.5-10.1) mg/dl POC Ioniz Calcium Lucy (1.12-1.32) mmol/l Phosphorus (2.5-4.9) mg/dl Magnesium (1.8-2.4) mg/dl Total Bilirubin (0.2-1) mg/dl Direct Bilirubin (0-0.2) mg/dl AST (15-37) U/L ALT (12-78) U/L Alkaline Phosphatase (45-117) U/L Troponin I 1.030 H* (0-0.045) ng/ml NT-Pro-B Natriuret Pep (0-900) pg/ml Total Protein (6.4-8.2) gm/dl Albumin (3.4-5.0) gm/dl Globulin (2.5-4.0) gm/dl Albumin/Globulin Ratio (0.9-2) TSH (0.300-4.500) uIu/ml Urine Color Urine Appearance (Clear) Urine pH (4.5-7.5) Ur Specific [place] (1.000-1.030) Urine Protein (Negative) Urine Glucose (UA) (Negative) Urine Ketones (Negative) Urine Blood (Negative) Urine Nitrite (Negative) Urine Bilirubin (Negative) Urine Urobilinogen (Negative) Ur Leukocyte Esterase (Negative) Nasal Screen MRSA (PCR) (Negative) Influenza Type A (PCR) Neg for Influ A (Neg) Influenza Type B (PCR) Neg for Influ B (Neg) 03/15/18 03/15/18 03/15/18 Range/Units 20:30 Unknown Unknown WBC (4.8-10.8) K/uL RBC (4.2-5.4) M/uL Hgb (12.0-16.0) g/dL POC Hgb (12.0-16.0) g/dl Hct (37-47) % POC Hct (37-47) % MCV (80-100) fL MCH (25-34) pg MCHC (32-36) g/dL RDW Std Deviation (36.4-46.3) fL RDW Coeff of Jose (11.5-14.5) % Plt Count (130-400) K/uL MPV (7.4-10.4) fL Immature Gran % (Auto) % Neut % (Auto) % Lymph % (Auto) % Burke % (Auto) % Eos % (Auto) % Baso % (Auto) % Immature Gran # (Auto) (0.00-0.02) K/uL Neut # (Auto) (1.4-6.5) K/uL Lymph # (Auto) (1.2-3.4) K/uL Burke # (Auto) (0.11-0.59) K/uL Eos # (Auto) (0-0.5) K/uL Baso # (Auto) (0-0.2) K/uL PT (9.0-12.0) Seconds INR (0.9-1.1) APTT (21.0-31.0) Seconds PTT Ratio POC pH (7.35-7.45) POC pCO2 (35-46) mmHg POC pO2 (80-95) mmHg POC HCO3 (19-24) parish/L POC Base Excess (-9-1.8) parish/L POC ABG O2 Sat (90-95) % POC Sodium (135-144) mEq/L Sodium (136-145) mmol/L POC Potassium (3.3-5.0) mEq/L Potassium (3.5-5.1) mmol/L POC Chloride (101-112) mEq/L Chloride (98-107) mmol/L Carbon Dioxide (21-32) mmol/L POC Total CO2 (24-31) mEq/l Anion Gap (3-11) POC Anion Gap (16-25) mmol/L POC BUN (7-18) mg/dl BUN (7-18) mg/dl Creatinine (0.6-1.2) mg/dl POC Creatinine (0.6-1.3) mg/dl Est Cr Clr Drug Dosing ml/min Est GFR ( Amer) Est GFR (Non-Af Amer) BUN/Creatinine Ratio (10-20) Glucose (70-99) mg/dl POC Glucose (70-99) POC Glucose (other) (70-99) mg/dl Lactate (0.4-2.0) mmol/L Calcium (8.5-10.1) mg/dl POC Ioniz Calcium Lucy (1.12-1.32) mmol/l Phosphorus (2.5-4.9) mg/dl Magnesium (1.8-2.4) mg/dl Total Bilirubin (0.2-1) mg/dl Direct Bilirubin (0-0.2) mg/dl AST (15-37) U/L ALT (12-78) U/L Alkaline Phosphatase (45-117) U/L Troponin I 0.789 H* (0-0.045) ng/ml NT-Pro-B Natriuret Pep (0-900) pg/ml Total Protein (6.4-8.2) gm/dl Albumin (3.4-5.0) gm/dl Globulin (2.5-4.0) gm/dl Albumin/Globulin Ratio (0.9-2) TSH (0.300-4.500) uIu/ml Urine Color Yellow Urine Appearance Clear (Clear) Urine pH 5.0 (4.5-7.5) Ur Specific [place] 1.020 (1.000-1.030) Urine Protein Negative (Negative) Urine Glucose (UA) 3+ H (Negative) Urine Ketones Negative (Negative) Urine Blood Negative (Negative) Urine Nitrite Negative (Negative) Urine Bilirubin Negative (Negative) Urine Urobilinogen Negative (Negative) Ur Leukocyte Esterase Negative (Negative) Nasal Screen MRSA (PCR) Negative (Negative) Influenza Type A (PCR) (Neg) Influenza Type B (PCR) (Neg) Imaging Data Radiologist's Impression: Radiology results as stated below per my review and the radiologist's interpretation: XR chest 1V portable CLINICAL HISTORY: Sepsis. COMPARISON STUDY: No previous studies for comparison. FINDINGS: There is no pneumothorax or pleural effusion. There is no consolidation or evidence for pulmonary edema. Cardiac size is normal. Mediastinal contours are normal. A 9 mm nodular density projects over the left lower lung. There is possible underlying emphysema. IMPRESSION: 1. No acute cardiopulmonary findings. 2. Possible underlying emphysema. 3. 9 mm nodular density which projects over the left lower lung. This favors a nipple shadow however a pulmonary nodule could appear similar. Nonemergent PA and shallow oblique radiographs of the chest are recommended. Electronically signed by: Moreno Fernandes M.D. 03/15/2018 9:04 AM ECG Data Attestation: I personally reviewed and interpreted this ECG as follows: Indication: other (respiratory distress) Rate (beats per minute): 119 Rhythm: sinus tachycardia Findings: + other (normal axis) and + nonspecific-ST abn; no acute ischemic change Blood Pressure Blood Pressure Findings: Elevated blood pressure Blood Pressure Disposition: elevated BP felt to be situational MDM Narrative The patient is a 57-year-old woman with a past medical history of likely emphysema presents emergency department with respiratory failure in the setting of flulike symptoms over the past week per hpi. Arrival the patient is in severe respiratory distress tachypneic in the 40s with labored breathing, tachycardic but with stable blood pressure. Patient was placed on BiPAP in the field by EMS after being given Ativan to help tolerate the mask given her anxiety. She was found to be 80% on room air initially placed on nonrebreather , but still remained tachypneic and labored. On exam the patient is diminished throughout with prolonged expiratory wheezes. She appears clinically dry. On arrival the emergency department the patient was placed on our BiPAP but again had difficulty tolerating the mask therefore the patient was given 1.5 mix per cake of ketamine with plan to proceed to intubation if did not improve on BiPAP. Ketamine subsequently successful in allowing patient to tolerate the mask. Chest x-ray without evidence of pneumonia with a subtle slight flattening of diaphragm. Limited bedside echo demonstrates grossly normal LV and RV size and function. IVC with 100% variability. WBC 12.9. H/H 10.8/33 without priors for comparison. ABG with pH of 7.3 and CO2 of 49, with PO2 193 on 100%, which was subsequently decreased to 30% FiO2. Chemistry without acidosis. Troponin 0 0.156 which may likely be due to demand given the patient' s respiratory failure. We will continue to trend. UA negative for infection. Flu negative. Patient was treated empirically with cefepime and azithromycin for her respiratory failure. Patient continued to be stable on Bipap. Was given 1mg versed for mild emergence reaction from Ketamine. Case was discussed with Dr. Milan, special client bus driver, who will manage the patient in the ICU. Additionally discussed with Gilberto Fernandez PA-C, who will admit the patient for further management. Impression & Plan Respiratory failure Critical Care Time I have personally spent greater than 60 minutes of critical care time in the direct management of this patient. This includes bedside care, interpretation of diagnostic studies, and testing, discussion with consultants, patient, and family members, and other required patient management activities. This 60 minutes is in excess of all separately billable procedures. Critical Care Time: Yes Total Critical Care Time: 60 Discharge Plan Visit Data *Final* Discharge Date/Time: 03/15/18 10:04 Chief Complaint: Respiratory Distress ED Provider: Rickey Davidson Discharge Problem: Respiratory failure Patient Disposition: Admitted As Inpatient Discharge Instructions Interventions: ED Discharge Assessment Last Done: 03/15/18 10:04 The scribe's documentation has been prepared under my direction and personally reviewed by me in its entirety. I confirm that the note above accurately reflects all work, treatment, procedures, and medical decision making performed by me.
[2018-03-15] MEDS: methylPREDNISolone 60 MG in SYRINGE 0 ML IV SCH ×2 (15:49→21:59)
[2018-03-15] MEDS: GABAPENTIN 300 MG CAP PO SCH (19:33)
[2018-03-15] MEDS ORDERED: HYDROCODONE/APAP 2.5MG/108MG ELIX 5 ML UDP PO PRN (19:34)
[2018-03-15] MEDS: HYDROCODONE/ACETAMOPHEN 5/325MG TAB PO PRN (21:29)
[2018-03-16] MEDS: ALBUT/IPRATROP 3MG/0.5MG NEB 3 ML VIAL NEB SCH ×6 (03:38→23:19)
[2018-03-16] MEDS: methylPREDNISolone 60 MG in SYRINGE 0 ML IV SCH (04:30)
[2018-03-16 05:00] LABS: Albumin Level 2.8 gm/dl (3.4-5.0); BUN Creatinine Ratio 20.9 (10-20); Calcium 8.3 mg/dl (8.5-10.1); Creatinine Clr Calc Pharmacy 78.1 ml/min; Est GFR (African American) 117.3; Est GFR (Non-African American) 101.2
[2018-03-16 05:03] LABS: Albumin Globulin Ratio 0.8 (0.9-2); Bilirubin,Total 0.3 mg/dl (0.2-1); Globulin 3.6 gm/dl (2.5-4.0); Total Protein 6.4 gm/dl (6.4-8.2)
[2018-03-16] MEDS: HEPARIN SOD 5,000 UNIT/0.5 ML VIAL SQ SCH ×3 (05:48→20:46)
--- NOTE | 2018-03-16 07:31 | XRay Report ---
XR chest 1V portable CLINICAL HISTORY: f/u COMPARISON STUDY: Chest radiograph March 15, 2018. FINDINGS: There is possible subtle left lower lung interstitial thickening. There is no consolidation . No pneumothorax or pleural effusion is noted. There may be underlying emphysema. Cardiac size is no rmal. Mediastinal contours are normal. IMPRESSION: 1. Mild left lower lung interstitial thickening. This may reflect atelectasis or a mild infectious pr ocess. No consolidation. 2. Suspected underlying emphysema. Electronically signed by: Moreno Fernandes M.D. 03/16/2018 7:29 AM
[2018-03-16] MEDS: AZITHROMYCIN 500 MG/255 ML BAG IV SCH (07:36)
[2018-03-16] MEDS: GABAPENTIN 300 MG CAP PO SCH ×3 (07:36→20:44)
[2018-03-16] MEDS: BUDESONIDE/FORMOTEROL FUMARATE 160/4.5 60 PUFFS/INHALER INH SCH ×2 (07:38→20:44)
--- NOTE | 2018-03-16 09:21 | Cardiology Consultation ---
Date of Consultation March 16, 2018 Obtain lipid panel and iron studies. Continue supportive care for now. Future considerations include outpatient nuclear stress test to determine ischemic burden versus inferior scar, or cardiac catheterization once anemia workup is completed and she is stable from a lung standpoint. Assessment & Plan (1) Acute respiratory failure with hypoxia and hypercapnia: -Clinically, patient appears to be improving with current treatment. (2) NSTEMI (non-ST elevated myocardial infarction): Serial troponin measurements have yielded elevations of 0.156, 1.03, and 0.789 NG per mL per -Her presentation favors that this was likely a type II, demand paced myocardial infarction with myocardial necrosis in the setting of hypoxia. I do not think her initial presentation is due to an acute intracoronary plaque rupture, I think this favors myocardial strain in the setting of underlying coronary heart disease. The appearance of her echo suggests inferior scar rather than subtle hypokinesis anticipated if this was a new finding. The patient does not recall ever having been told that she had a past heart attack on her echocardiogram, she does describe having had a cardiac catheterization several years ago but does not recall whether or not this was obstructive disease or not. This Took place in [place]. In terms of aspirin, I am concerned about her hemoglobin level with hemoglobin of just about 10 g/dL, hematocrit of 32. Given her underlying COPD, would expect her to have a much higher hemoglobin at baseline. She is not appear to be volume overloaded so I do not think this is delusional. I am therefore concerned about placing her on aspirin. I have requested iron studies, B12 and folic acid. She describes that she is to drink quite a bit, but she does not do this anymore. Would avoid systemic anticoagulation her given the degree of anemia present. I have requested a fasting lipid panel. We will likely proceed with statin therapy based on the results of the lipid panel. Hold off on beta-vee for now given relative low blood pressure. (3) Anxiety: Patient describes a history of anxiety. We will continue to watch this. (4) Anemia: Check iron studies, B12, folic acid, reticulocyte count. Continue DVT prophylaxis heparin, incentive systemic anticoagulation at present. This does not appear to be due to an acute intracoronary plaque rupture, and given her degree of anemia, I think that starting anticoagulation may precipitate worsening blood counts. History of Present Illness Attending Physician: Allison Villalpando MD History of Present Illness Lev Beauchamp is a 57-year-old female seen in cardiology consultation per the request of Dr. Milan critical care medicine for the evaluation of non-ST segment elevation myocardial infarction. The patient is in the process of moving to [place] from [place]. Therefore there is not a lot of definite past medical history available on her. She was admitted on 03/15/18 having presented with several days of progressive respiratory distress. She describes that she has been short of breath and has had a cough for 6 months. A few days prior to admission she started to develop what she describes as being flulike symptoms with cough, progressive shortness of breath and subjective fevers and chills. She ultimately presented to the emergency room she was very tachypneic. Initially BiPAP treatment was initiated but she did not tolerate this due to claustrophobia. She has received supplemental oxygen, and appropriate medication therapy for an acute exacerbation of COPD receiving inhaled bronchodilators, IV corticosteroids, and antibiotics with interval improvement in her symptoms. She is no longer tachycardic. She is comfortable and lying supine, but she has definite conversational dyspnea. PAST MEDICAL HISTORY: The patient is a longtime cigarette smoker having ceased a few weeks ago She describes being diagnosed with COPD while living in [place] 6 years ago and she believes that she has a history of abnormal chest x-ray dating back about 4 years She describes a long-standing history of anxiety She states that in her late 40s, she was hospitalized and she describes having had a cardiac catheterization. She does not recall if she was told if she ever had a heart attack or if heart stents were placed. Allergies Allergy/AdvReac Type Severity Reaction Status Date / Time No Known Allergies Allergy Unverified 03/15/18 09:16 Home Medications Home Medications Medication Instructions Recorded Confirmed Type albuterol sulfate [Ventolin HFA] 2 puff INHALATION QID PRN 03/15/18 03/15/18 History budesonide-formoterol [Symbicort] 2 puff INHALATION BID 03/15/18 03/15/18 History cholecalciferol (vitamin D3) 1,000 unit PO DAILY 03/15/18 03/15/18 History [Vitamin D3] gabapentin 300 mg PO QID 03/15/18 03/15/18 History Patient History Medical History COPD (chronic obstructive pulmonary disease) (Chronic) Anxiety (Chronic) Chronic back pain (Chronic) Surgical History H/O hernia repair (Resolved) Family History Other Family history non-contributory Social History marital status: Current Living Situation: Significant Other Other Information That Helps Us Care for You: No Feels Safe at Home: Yes Safety Concerns: Feels Safe At This Time Smoking Status: Current some day smoker Tobacco Type: cigarettes Cigarettes per Day: occasional use Second Hand Exposure: Yes Tobacco Cessation Education Requested by Patient: No Hx Alcohol Use: Yes Alcohol type: beer and wine Alcohol Intake Frequency: a few times a month Hx Substance Use: No Beliefs That Will Affect Care: None Preferred Language: Persian Communication Ability: Effective Gas Leak Inspector Helper Required: No Review of Systems 10 point review of systems is reviewed and is negative with the exception of that noted above Physical Exam 2 Vital Signs (Past 24 Hours): Last Vital Signs Temp 36.5 C 03/16/18 08:01 Pulse 88 03/16/18 08:01 Resp 23 03/16/18 08:01 BP 120/72 03/16/18 08:01 Pulse Ox 98 03/16/18 08:01 Constitutional: + ill appearing and + thin; no acute distress Neck: trachea midline, no thyromegaly trachea midline Respiratory: + labored breathing Auscultation: no crackles, no rales and no wheezes Cardiovascular: RRR, no murmur, no edema Gastrointestinal (Abdomen): normal bowel sounds, soft, nontender, no hepatosplenomegaly Skin: no rashes, warm and dry Neurologic: patellar DTR's 2+ bilat, sensation intact Psychiatric: Affect: + anxious affect Results & Data Laboratory Results Cardiac Enzymes 03/15/18 03/15/18 03/15/18 Range/Units 08:40 15:13 20:30 AST 12 L (15-37) U/L Troponin I 0.156 H* 1.030 H* 0.789 H* (0-0.045) ng/ml 03/16/18 Range/Units 04:26 AST 16 (15-37) U/L Troponin I (0-0.045) ng/ml Comprehensive Metabolic Panel 03/15/18 03/16/18 Range/Units 08:40 04:26 Sodium 138 136 (136-145) mmol/L Potassium 4.2 4.0 (3.5-5.1) mmol/L Chloride 104 105 (98-107) mmol/L Carbon Dioxide 26 26 (21-32) mmol/L BUN 11 13 (7-18) mg/dl Creatinine 0.67 0.60 (0.6-1.2) mg/dl Glucose 110 H 189 H (70-99) mg/dl Calcium 8.1 L 8.3 L (8.5-10.1) mg/dl Direct Bilirubin < 0.1 (0-0.2) mg/dl AST 12 L 16 (15-37) U/L ALT 13 11 L (12-78) U/L Alkaline Phosphatase 48 40 L (45-117) U/L Total Protein 7.2 6.4 (6.4-8.2) gm/dl Albumin 3.2 L 2.8 L (3.4-5.0) gm/dl Intake and Output 03/15/18 03/16/18 03/16/18 22:59 06:59 14:59 Intake Total 500 / 500 360 / 360 300 / 300 Output Total 800 / 800 400 / 400 100 / 100 Balance -300 / -300 -40 / -40 200 / 200 Intake: Oral 500 / 500 360 / 360 300 / 300 Output: Urine 300 / 300 Urine Amount (Catheter) 500 / 500 400 / 400 100 / 100 Hickey/Indwelling 500 / 500 400 / 400 100 / 100 Other: Weight 55 kg 57.5 kg Diagnostic Findings Initial EKG performed 03/15/18 at 9:17 AM revealed sinus tachycardia [address], [address] abnormality Repeat tracing 03/15/18 at 1630 revealed a normal sinus rhythm 84 bpm, ST segments are normal by my interpretation EKG performed 03/16/18 reviewed independently: Normal sinus rhythm at 79 bpm, normal ST segments. Echocardiogram performed 03/15/18 with images reviewed independently by the undersigned, there is a small sized focal wall motion abnormality with hypokinesis of the basal portion of the inferior wall.
--- NOTE | 2018-03-16 09:27 | Hospitalist Progress Note ---
Date of Service March 16, 2018 Assessment & Plan (1) Acute respiratory failure with hypoxia and hypercapnia: This is a 57yo F with PMH of COPD and anxiety who presents with shortness of breath and acute respiratory failure. -Initially hypertensive at 153/117, tachycardic at 118, tachypneic at 45 and febrile at 37.7 -ABG with mild respiratory acidosis: pH 7.32, pCO2: 49, HCO3: 25 -Required BiPAP for some time to maintain such -Appreciate input from district engineer and recommendation -Patient is off BiPAP now -Saturating reasonably with nasal cannula oxygen -We will transfer the patient to telemetry for continued care (2) COPD exacerbation: Mild leukocytosis at 12.5k, normal lactic acid, Flu PCR negative -CXR without evidence of infiltrates -Received cefepime and azithromycin in ED -Will continue abx coverage with ceftriaxone and azithromycin, per Dr. Milan -Adelita-medrol 40mg Q6H, Duonebs QIDR, Symbicort -Will need to establish out-patient pulm upon discharge -Continue current treatment -Clinically better today (3) NSTEMI (non-ST elevated myocardial infarction): Troponin elevated at 0.156 initially in the setting of respiratory distress -Likely 2/2 demand ischemia -EKG with sinus tachycardia, possible ST depression in anterolateral leads -Troponin went up to more than 1 -No significant EKG changes -Echo did not show infrarenal basilar akinesis -Appreciate cardiology input and recommendation -Fasting lipid level has been requested -Aspirin has been on hold as it might exacerbate COPD and/or bleeding if any DVT Ppx: SQ heparin Code status: FULL PCP: In transition of moving to [place]. Will need to establish care. Dispo: Admitted to ICU. Discharge planning ordered. Patient seen in collaboration with Dr. Villalpando. Please see addendum. (4) Anemia: Her hemoglobin is little over 10 Seems to be anemia of chronic disease, but expected to be higher secondary to COPD Will get iron studies, B12 and folate level to find any cause of any Stool will be sent for occult blood as well (5) Anxiety: Has history of anxiety and depression Was on multiple antipsychotic medications including Prozac, lithium, trazodone and Ativan as per patient Does not want to be evaluated by a psychiatrist at this time Will try small dose of Ativan while in the hospital Subjective She has history of severe COPD and anxiety disorder has been on multiple medications before, was admitted with acute respiratory failure secondary to acute exacerbation of COPD and noted to have type II myocardial infarction. 03/16 The patient was seen and examined in ICU She is off BiPAP now and has been feeling a lot better Still has a lot of anxiety and moderate shortness of breath at rest Denies any chest pain and/or palpitation Can be transferred to telemetry unit Physical Exam 2 Vital Signs (Past 24 Hours): Last Vital Signs Temp 36.5 C 03/16/18 08:01 Pulse 88 03/16/18 08:01 Resp 23 03/16/18 08:01 BP 120/72 03/16/18 08:01 Pulse Ox 98 03/16/18 08:01 Constitutional: + acute distress, + ill appearing and + thin Eyes: PERRL, conjunctivae normal, anicteric sclerae ENMT: external ear and nose normal, oropharynx normal Neck: trachea midline, no thyromegaly trachea midline Respiratory: + respiratory distress, + labored breathing and + uses accessory muscles Auscultation: + diminished lung sounds (Secondary to severe COPD) Cardiovascular: RRR, no murmur, no edema Gastrointestinal (Abdomen): normal bowel sounds, soft, nontender, no hepatosplenomegaly Skin: no rashes, warm and dry Neurologic: patellar DTR's 2+ bilat, sensation intact Psychiatric: Affect: + anxious affect Results & Data Laboratory Results BMP 03/16/18 04:26 Sodium 136 Potassium 4.0 Chloride 105 Carbon Dioxide 26 BUN 13 Creatinine 0.60 Glucose 189 H Calcium 8.3 L Cardiac Enzymes 03/15/18 03/15/18 03/15/18 Range/Units 08:40 15:13 20:30 Troponin I 0.156 H* 1.030 H* 0.789 H* (0-0.045) ng/ml Liver Function 03/15/18 03/16/18 Range/Units 08:40 04:26 Total Bilirubin 0.3 0.3 (0.2-1) mg/dl AST 16 (15-37) U/L ALT 11 L (12-78) U/L Alkaline Phosphatase 48 40 L (45-117) U/L Albumin 2.8 L (3.4-5.0) gm/dl Urine 03/15/18 Range/Units Unknown Urine Color Yellow Urine Appearance Clear (Clear) Urine pH 5.0 (4.5-7.5) Ur Specific [place] 1.020 (1.000-1.030) Urine Protein Negative (Negative) Urine Glucose (UA) 3+ H (Negative) Diagnostic Findings Echo-EF is normal Akinetic inferior basilar wall Medications Administered Current Inpatient Medications Hydrocodone Bitart/Acetaminophen ([place] 5/325) 1 tab PO HS PRN PRN Reason: Pain Stop: 03/29/18 21:17 Last Admin: 03/15/18 21:29 Dose: 1 tab Albuterol (Duoneb) 3 ml NEB Q4R STELLA Stop: 04/14/18 11:59 Last Admin: 03/16/18 07:07 Dose: 3 ml Budesonide/Formoterol Fumarate (Symbicort 160mcg/4.5mcg) 2 puffs INH BID STELLA Stop: 04/14/18 11:44 Last Admin: 03/16/18 07:38 Dose: 2 puffs Gabapentin (Neurontin) 300 mg PO TID STELLA Stop: 04/14/18 20:59 Last Admin: 03/16/18 07:36 Dose: 300 mg Heparin Sodium (Porcine) (Heparin Sodium (Porcine)) 5,000 units SQ Q8 STELLA Stop: 04/14/18 13:59 Last Admin: 03/16/18 05:48 Dose: 5,000 units Methylprednisolone 60 mg/ (Syringe) 0.96 mls @ 1.5 mls/min IV Q6H STELLA Stop: 04/14/18 15:59 Last Admin: 03/16/18 04:30 Dose: 1.5 mls/min Azithromycin (Zithromax) 500 mg in 255 mls @ 127.5 mls/hr IV Q24H STELLA; Protocol Stop: 03/22/18 08:59 Last Admin: 03/16/18 07:36 Dose: 127.5 mls/hr Ceftriaxone Sodium 1,000 mg/ (Dextrose) 50 mls @ 100 mls/hr IV Q24H STELLA; Protocol Stop: 03/22/18 11:59 Last Infusion: 03/15/18 13:11 Dose: Infused Miscellaneous (Icu Protocol For Hyperglycemia) 1 ea N/A PRN PRN; Protocol PRN Reason: Hyperglycemia Protocol Stop: 03/17/18 10:47
[2018-03-16 09:40] LABS: Reticulocyte % 1.8 % (0.5-2.0); Reticulocytes # 0.05 10^6/uL (0.02-0.10)
--- NOTE | 2018-03-16 09:42 | Critical Care Progress Note ---
Date of Service March 16, 2018 Mildly improved compared to yesterday Supervising Physician Co-Signing Physician Notes 87-year-old female with COPD and significance. Patient is from [place] who has a primary just down there. From reported symptoms it sounds like she may gold stage III with episodes of significant exertional dyspnea with activities of daily living. Will de-escalate antibiotics to just Zithromax, convert steroids to oral, sliding scale coverage for hyperglycemia. Patient does not require supplemental oxygen and is stable for downgrade at this time. Discussed the case with the hospitalist service. Physical Exam 2 Vital Signs (Past 24 Hours): Last Vital Signs Temp 36.5 C 03/16/18 08:01 Pulse 88 03/16/18 08:01 Resp 23 03/16/18 08:01 BP 120/72 03/16/18 08:01 Pulse Ox 98 03/16/18 08:01 General: Alert. nontoxic. Skin: Warm, dry, Head: Atraumatic Ears, nose, mouth and throat: airway patent Cardiovascular: Normal peripheral perfusion Respiratory: no respiratory distress Gastrointestinal: Non distended Musculoskeletal: No deformity
[2018-03-16 10:20] LABS: Chol HDL Ratio 3; Cholesterol 166 mg/dl (0-200); HDL Cholesterol 62 mg/dl; LDL Cholesterol Calculated 79 mg/dl; Triglycerides 127 mg/dl (0-150); VLDL Cholesterol 25 mg/dl
[2018-03-16 10:22] LABS: Ferritin 237.6 ng/ml (8-388)
[2018-03-16] MEDS: predniSONE 20 MG TAB PO SCH (10:33)
[2018-03-16] MEDS: INSULIN ASPART 100 UNITS/ML 3 ML PEN SC SCH ×3 (13:16→20:47)
[2018-03-16] MEDS ORDERED: ACETAMINOPHEN SOLN 500 MG/15.62 ML UDP PO PRN (14:39)
[2018-03-16] MEDS: LORazepam 0.5 MG TAB PO PRN (16:13)
[2018-03-16] MEDS: HYDROCODONE/ACETAMOPHEN 5/325MG TAB PO PRN (20:52)
[2018-03-17] MEDS: ALBUT/IPRATROP 3MG/0.5MG NEB 3 ML VIAL NEB SCH ×6 (03:29→23:30)
[2018-03-17] MEDS ORDERED: CARBOHYDRATES FOR HYPOGLYCEMIA PO PRN (03:55)
[2018-03-17] MEDS ORDERED: DEXTROSE 50% 50 ML SYRINGE IV PRN (03:55)
[2018-03-17] MEDS ORDERED: GLUCOSE 40% GEL 15 GM TUBE PO PRN (03:55)
[2018-03-17] MEDS ORDERED: GLUCOSE 10 TABS/TUBE PO PRN (03:55)
[2018-03-17] MEDS ORDERED: GLUCAGON FOR INJ 1 MG VIAL IM PRN (03:55)
[2018-03-17] MEDS: ACETAMINOPHEN 500 MG TAB PO PRN ×2 (04:02→13:20)
[2018-03-17] MEDS: HEPARIN SOD 5,000 UNIT/0.5 ML VIAL SQ SCH ×3 (06:04→20:50)
[2018-03-17 07:20] LABS: Albumin Level 2.6 gm/dl (3.4-5.0); BUN Creatinine Ratio 37.2 (10-20); Calcium 8.4 mg/dl (8.5-10.1); Est GFR (African American) 120.7; Est GFR (Non-African American) 104.1; Potassium 4.2 mmol/L (3.5-5.1)
[2018-03-17 07:22] LABS: Albumin Globulin Ratio 0.8 (0.9-2); Bilirubin,Total 0.3 mg/dl (0.2-1); Globulin 3.4 gm/dl (2.5-4.0)
[2018-03-17] MEDS: INSULIN ASPART 100 UNITS/ML 3 ML PEN SC SCH ×4 (08:18→20:11)
[2018-03-17] MEDS: predniSONE 20 MG TAB PO SCH (08:19)
[2018-03-17] MEDS: GABAPENTIN 300 MG CAP PO SCH ×3 (08:19→20:49)
[2018-03-17] MEDS: BUDESONIDE/FORMOTEROL FUMARATE 160/4.5 60 PUFFS/INHALER INH SCH ×2 (08:19→20:49)
[2018-03-17] MEDS: AZITHROMYCIN 500 MG/255 ML BAG IV SCH (08:25)
[2018-03-17] MEDS: LORazepam 0.5 MG TAB PO PRN (08:32)
[2018-03-17] MEDS ORDERED: IPRATROPIUM BROMIDE/ALBUTEROL respimat INH INH PRN (10:37)
[2018-03-17 11:09] LABS: Basophils # (auto) 0.03 K/uL (0-0.2); Basophils % (auto) 0.2 %; Eosinophils # (auto) 0.01 K/uL (0-0.5); Eosinophils % (auto) 0.1 %; Hematocrit (blood only) 29.7 % (37-47); Hemoglobin 9.5 g/dL (12.0-16.0); Immature Granulocytes # (auto) 0.06 K/uL (0.00-0.02); Immature Granulocytes % (auto) 0.5 %; Lymphocytes # (auto) 2.42 K/uL (1.2-3.4); Lymphocytes % (auto) 19.7 %; Mean Corpuscular Volume 96.7 fL (80-100); Mean Platelet Volume 10.4 fL (7.4-10.4); Monocytes # (auto) 1.17 K/uL (0.11-0.59); Monocytes % (auto) 9.5 %; Neutrophils # (auto) 8.61 K/uL (1.4-6.5); Platelet Count 282 K/uL (130-400); RDW Coefficient of Variation 13.8 % (11.5-14.5); RDW Standard Deviation 48.6 fL (36.4-46.3); Red Blood Count 3.07 M/uL (4.2-5.4)
--- NOTE | 2018-03-17 11:16 | Cardiology Progress Note ---
Date of Service March 17, 2018 Assessment & Plan (1) COPD exacerbation: (2) NSTEMI (non-ST elevated myocardial infarction): (3) Anemia: Suspect non-ST segment elevation myocardial infarction due to type II, supply demand mismatch type event rather than an acute coronary plaque rupture. The basal inferior wall motion abnormality appears to be chronic, due to scar. Continue to optimize pulmonary status. Add aspirin, low-dose metoprolol succinate, and atorvastatin. Iron levels were within normal limits. She does however have a lower hemoglobin than that would be expected due to her degree of underlying lung disease. We will continue to follow. Future considerations include continued medical management without further ischemic workup versus follow-up pharmacologic nuclear stress testing after pulmonary status is optimized to assess for superimposed ischemic burden prior to cardiac catheterization. Subjective Chief complaint follow-up shortness of breath Subjective: Patient seen in cardiology follow-up today. She had been transferred Out of the medical intensive care unit to the telemetry floor. She is currently receiving a nebulizer treatment, and she notes her breathing is improved. She is accompanied by her boyfriend at the bedside. Telemetry reveals stable sinus rhythm in the range of 60-80 bpm. Repeat EKG reveals sinus rhythm with nonspecific ST abnormalities, no definite ischemia. Physical Exam 2 Vital Signs (Past 24 Hours): Last Vital Signs Temp 36.7 C 03/17/18 08:00 Pulse 78 03/17/18 11:09 Resp 18 03/17/18 11:09 BP 112/64 03/17/18 08:00 Pulse Ox 98 03/17/18 11:09 Physical Exam: General: no acute distress and stated age Eyes: conjunctiva are pink and non-injected, sclera clear Neck: normal jugular venous pulse, no hepatojugular reflux Chest: normal shape and normal respiratory effort Lungs: clear to auscultation and percussion Cardiac Exam: - regular heart sounds, no murmurs, rubs, or gallops, no jugular venous distention Abdomen: abdomen soft, non-tender, no abnormal masses and no hepatosplenomegaly Extremities: no edema and no cyanosis Neuro:awake, coversant, follows commands, no focal motor deficits Psych: Anxious, Appropriate insight
[2018-03-17] MEDS: ATORVASTATIN 10 MG TAB PO SCH (13:10)
[2018-03-17] MEDS: ASPIRIN 81 MG ECTAB PO SCH (13:10)
[2018-03-17] MEDS: METOPROLOL SUCC 25MG EXT REL TAB PO SCH (13:10)
--- NOTE | 2018-03-17 13:36 | Hospitalist Progress Note ---
Date of Service March 17, 2018 Assessment & Plan (1) Acute respiratory failure with hypoxia and hypercapnia: This is a 57yo F with PMH of COPD and anxiety who presents with shortness of breath and acute respiratory failure. -Initially hypertensive at 153/117, tachycardic at 118, tachypneic at 45 and febrile at 37.7 -ABG with mild respiratory acidosis: pH 7.32, pCO2: 49, HCO3: 25 -Required BiPAP for some time to maintain such -Appreciate input from public relations assistant and recommendation -Patient is off BiPAP now -Saturating reasonably with nasal cannula oxygen -Clinically much better -We will add Combivent inhaler and continue at discharge (2) COPD exacerbation: Mild leukocytosis at 12.5k, normal lactic acid, Flu PCR negative -CXR without evidence of infiltrates -Received cefepime and azithromycin in ED -Will continue abx coverage with ceftriaxone and azithromycin, per Dr. Milan -Adelita-medrol 40mg Q6H, Duonebs QIDR, Symbicort -Will need to establish out-patient pulm upon discharge -Has been on oral prednisone-taper on discharge -She likes to have DuoNeb on discharge and Combivent instead of albuterol inhaler -Likely be discharged in a day or 2 (3) NSTEMI (non-ST elevated myocardial infarction): Troponin elevated at 0.156 initially in the setting of respiratory distress -Likely 2/2 demand ischemia -EKG with sinus tachycardia, possible ST depression in anterolateral leads -Troponin went up to more than 1 -No significant EKG changes -Echo did not show infrarenal basilar akinesis -Appreciate cardiology input and recommendation -Fasting lipid level has been requested -Aspirin has been on hold as it might exacerbate COPD and/or bleeding if any -Aspirin restarted as per cardiology and small dose of beta-vee and statin -No further cardiac studies until respiratory status and anemia are compromised DVT Ppx: SQ heparin Code status: FULL PCP: In transition of moving to [place]. Will need to establish care. Dispo: Admitted to ICU. Discharge planning ordered. Patient seen in collaboration with Dr. Villalpando. Please see addendum. (4) Anemia: Her hemoglobin is little over 10 Seems to be anemia of chronic disease, but expected to be higher secondary to COPD Will get iron studies, B12 and folate level-have been normal Stool will be sent for occult blood as well-pending for now (5) Anxiety: Has history of anxiety and depression Was on multiple antipsychotic medications including Prozac, lithium, trazodone and Ativan as per patient Does not want to be evaluated by a psychiatrist at this time Will try small dose of Ativan while in the hospital Ativan has been working very well-can be discharged o.5 mg twice daily as needed Patient was seen by Dr. Saavedra from tomorrow Subjective She has history of severe COPD and anxiety disorder has been on multiple medications before, was admitted with acute respiratory failure secondary to acute exacerbation of COPD and noted to have type II myocardial infarction. 03/16 The patient was seen and examined in ICU She is off BiPAP now and has been feeling a lot better Still has a lot of anxiety and moderate shortness of breath at rest Denies any chest pain and/or palpitation Can be transferred to telemetry unit 03/17 The patient was seen and examined in telemetry unit She has been feeling a lot better Her anxiety and shortness of breath are much improved She is to continue with the nebs that she has been getting in the hospital She denies any other symptoms Physical Exam 2 Vital Signs (Past 24 Hours): Last Vital Signs Temp 36.6 C 03/17/18 11:00 Pulse 78 03/17/18 11:09 Resp 18 03/17/18 11:09 BP 122/70 03/17/18 11:00 Pulse Ox 98 03/17/18 11:09 Constitutional: + acute distress, + ill appearing and + thin Eyes: PERRL, conjunctivae normal, anicteric sclerae ENMT: external ear and nose normal, oropharynx normal Neck: trachea midline, no thyromegaly trachea midline Respiratory: + respiratory distress Auscultation: + diminished lung sounds and + wheezes (Minimal wheezing bilaterally) Cardiovascular: RRR, no murmur, no edema Gastrointestinal (Abdomen): normal bowel sounds, soft, nontender, no hepatosplenomegaly Skin: no rashes, warm and dry Neurologic: patellar DTR's 2+ bilat, sensation intact Psychiatric: Affect: + anxious affect Results & Data Laboratory Results Short CBC 03/17/18 Range/Units 06:31 WBC 12.30 H (4.8-10.8) K/uL Hgb 9.5 L (12.0-16.0) g/dL Hct 29.7 L (37-47) % Plt Count 282 (130-400) K/uL BMP 03/17/18 06:31 Sodium 137 Potassium 4.2 Chloride 105 Carbon Dioxide 30 BUN 20 H D Creatinine 0.55 L Glucose 88 Calcium 8.4 L Liver Function 03/17/18 Range/Units 06:31 Total Bilirubin 0.3 (0.2-1) mg/dl AST 11 L (15-37) U/L ALT 11 L (12-78) U/L Alkaline Phosphatase 35 L (45-117) U/L Albumin 2.6 L (3.4-5.0) gm/dl Medications Administered Current Inpatient Medications Acetaminophen (Tylenol) 1,000 mg PO Q8H PRN PRN Reason: Headache Stop: 04/16/18 03:51 Last Admin: 03/17/18 13:20 Dose: 1,000 mg Hydrocodone Bitart/Acetaminophen ([place] 5/325) 1 tab PO HS PRN PRN Reason: Pain Stop: 03/29/18 21:17 Last Admin: 03/16/18 20:52 Dose: 1 tab Albuterol (Duoneb) 3 ml NEB Q4R [facility] Stop: 04/14/18 11:59 Last Admin: 03/17/18 11:09 Dose: 3 ml Albuterol (Combivent Respimat) 2 puffs INH Q6H PRN PRN Reason: Shortness Of Breath Stop: 04/16/18 10:44 Aspirin (Ecotrin Ectab) 81 mg PO QAM [facility] Stop: 04/16/18 11:59 Last Admin: 03/17/18 13:10 Dose: 81 mg Atorvastatin Calcium (Lipitor) 10 mg PO QAM [facility] Stop: 04/16/18 11:59 Last Admin: 03/17/18 13:10 Dose: 10 mg Budesonide/Formoterol Fumarate (Symbicort 160mcg/4.5mcg) 2 puffs INH BID [facility] Stop: 04/14/18 11:44 Last Admin: 03/17/18 08:19 Dose: 2 puffs Dextrose (Dextrose 50%) 25 - 50 ml IV UD PRN; Protocol PRN Reason: Hypoglycemia Protocol Stop: 04/16/18 03:54 Gabapentin (Neurontin) 300 mg PO TID [facility] Stop: 04/14/18 20:59 Last Admin: 03/17/18 13:10 Dose: 300 mg Glucagon (Glucagen) 1 mg IM UD PRN; Protocol PRN Reason: Hypoglycemia Protocol Stop: 04/16/18 03:54 Glucose (Glucose 40%) 15 - 30 gm PO UD PRN; Protocol PRN Reason: Hypoglycemia Protocol Stop: 04/16/18 03:54 Glucose (Dex4 Glucose) 4 - 8 tabs PO UD PRN; Protocol PRN Reason: Hypoglycemia Protocol Stop: 04/16/18 03:54 Heparin Sodium (Porcine) (Heparin Sodium (Porcine)) 5,000 units SQ Q8 [facility] Stop: 04/14/18 13:59 Last Admin: 03/17/18 13:11 Dose: 5,000 units Azithromycin (Zithromax) 500 mg in 255 mls @ 127.5 mls/hr IV Q24H [facility]; Protocol Stop: 03/22/18 08:59 Last Infusion: 03/17/18 10:25 Dose: Infused Insulin Aspart (Novolog Flexpen) 0 units SC ACHS [facility] Stop: 04/15/18 11:29 Last Admin: 03/17/18 12:15 Dose: Not Given Lorazepam (Ativan) 0.5 mg PO Q8H PRN PRN Reason: Anxiety Stop: 04/15/18 09:40 Last Admin: 03/17/18 08:32 Dose: 0.5 mg Metoprolol Succinate (Toprol Xl) 12.5 mg PO QAM [facility] Stop: 04/16/18 11:59 Last Admin: 03/17/18 13:10 Dose: 12.5 mg Miscellaneous (Carbohydrates For Hypoglycemia) 15 - 30 gm PO UD PRN PRN Reason: Hypoglycemia Treatment Stop: 04/16/18 03:54 Prednisone (Prednisone) 40 mg PO QAM [facility] Stop: 04/15/18 09:59 Last Admin: 03/17/18 08:19 Dose: 40 mg Vitamin D (Vitamin D3) 1,000 units PO DAILY [facility] Stop: 04/17/18 08:59
[2018-03-17] MEDS: HYDROCODONE/ACETAMOPHEN 5/325MG TAB PO PRN (20:53)
[2018-03-18] MEDS: LORazepam 0.5 MG TAB PO PRN ×2 (02:24→14:07)
[2018-03-18] MEDS: ALBUT/IPRATROP 3MG/0.5MG NEB 3 ML VIAL NEB SCH ×6 (03:07→23:28)
[2018-03-18] MEDS: ACETAMINOPHEN 500 MG TAB PO PRN (05:36)
[2018-03-18] MEDS: HEPARIN SOD 5,000 UNIT/0.5 ML VIAL SQ SCH ×3 (05:37→20:48)
[2018-03-18 07:19] LABS: Hematocrit (blood only) 31.4 % (37-47); Hemoglobin 10.4 g/dL (12.0-16.0); Mean Corpuscular Hgb Conc 33.1 g/dL (32-36); Mean Corpuscular Volume 95.4 fL (80-100); Mean Platelet Volume 8.7 fL (7.4-10.4); Platelet Count 376 K/uL (130-400); RDW Coefficient of Variation 13.5 % (11.5-14.5); RDW Standard Deviation 47.4 fL (36.4-46.3); Red Blood Count 3.29 M/uL (4.2-5.4); White Blood Count 10.22 K/uL (4.8-10.8)
[2018-03-18] MEDS: INSULIN ASPART 100 UNITS/ML 3 ML PEN SC SCH ×4 (08:13→20:46)
[2018-03-18] MEDS: GABAPENTIN 300 MG CAP PO SCH ×3 (08:31→20:22)
[2018-03-18] MEDS: CHOLECALCIFEROL 1,000 UNITS TAB PO SCH (08:31)
[2018-03-18] MEDS: BUDESONIDE/FORMOTEROL FUMARATE 160/4.5 60 PUFFS/INHALER INH SCH ×2 (08:32→20:23)
[2018-03-18] MEDS: ASPIRIN 81 MG ECTAB PO SCH (08:32)
[2018-03-18] MEDS: AZITHROMYCIN 500 MG/255 ML BAG IV SCH (08:32)
[2018-03-18] MEDS: predniSONE 20 MG TAB PO SCH (08:32)
[2018-03-18] MEDS: ATORVASTATIN 10 MG TAB PO SCH (08:32)
[2018-03-18] MEDS: METOPROLOL SUCC 25MG EXT REL TAB PO SCH (08:33)
--- NOTE | 2018-03-18 11:39 | Cardiology Progress Note ---
Date of Service March 18, 2018 Assessment & Plan (1) COPD exacerbation: (2) NSTEMI (non-ST elevated myocardial infarction): Continue current cardiac treatment with aspirin, metoprolol, and atorvastatin as initiated on 03/17/18. Continue supportive care and treatment for her COPD exacerbation. Subjective Chief complaint: Follow-up shortness of breath Subjective: Patient states she had a bad night last night with worsening cough and shortness of breath. She continues to display significant anxiety. She is comfortable lying supine at present. Telemetry reveals sinus rhythm at 70 bpm range this morning and overnight last night without significant arrhythmia. Physical Exam 2 Vital Signs (Past 24 Hours): Last Vital Signs Temp 36.7 C 03/18/18 07:00 Pulse 78 03/18/18 11:02 Resp 18 03/18/18 11:02 BP 144/77 H 03/18/18 07:00 Pulse Ox 98 03/18/18 11:02 Constitutional: WD/WN, vitals as above Respiratory: normal respiratory effort, lungs clear to auscultation Cardiovascular: RRR, no murmur, no edema Neurologic: moves all extremities and awake; no focal motor deficits
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
[2018-03-18] MEDS: ESCITALOPRAM OXALATE 10 MG TAB PO SCH (14:29)
--- NOTE | 2018-03-18 15:04 | Hospitalist Progress Note ---
Date of Service March 18, 2018 Assessment & Plan (1) Acute respiratory failure with hypoxia and hypercapnia: Patient is a 57 yr female with H/O COPD and anxiety who presents with shortness of breath and acute respiratory failure. Secondary to COPD exacerbation Wean off oxygen as able Plan to add Combivent inhaler upon discharge (2) COPD exacerbation: Acute on chronic COPD Exacerbation Flu PCR negative CXR without evidence of infiltrates Continue Azithromycib, Duonebs, Prednisone Also on Symbicort Needs to establish out-patient pulm upon discharge Wean off oxygen as able Counselled to quit smoking (3) NSTEMI (non-ST elevated myocardial infarction): Troponin elevated at 0.156 initially in the setting of respiratory distress Likely 2/2 demand ischemia EKG with sinus tachycardia, possible ST depression in anterolateral leads ECHO: infrarenal basilar akinesis: Apperas to be chronic due to scar Appreciate cardiology input Continue Aspirin, beta-vee and statin (4) Anemia: Hb stable Iron studies, B12 and folate level normal Monitor CBC (5) Anxiety: H/O anxiety and depression Was on multiple antipsychotic medications including Prozac, lithium, trazodone and Ativan as per patient Started on Lexapro Appreciate Psychiatry Input Ativan PRN DVT Px: Heparin SQ Code Status: Full Code Subjective Patient is seen and examined at bedside Reports worsening cough and SOB overnight Reports anxiety Also reports some chest discomfort with cough Family at bedside Physical Exam 2 Vital Signs (Past 24 Hours): Last Vital Signs Temp 36.7 C 03/18/18 07:00 Pulse 78 03/18/18 11:02 Resp 18 03/18/18 11:02 BP 144/77 H 03/18/18 07:00 Pulse Ox 98 03/18/18 11:02 Physical Exam: Physical Exam: Vitals signs as noted above General Appearance:Moderately built and nourished, no apparent distress Head: normocephalic, Atraumatic Eyes: normal inspection, EOMI Neck: supple, Trachea midline Respiratory/Chest: Decreased breath sounds, B/L wheezes, rhonchi Cardiovascular: S1, S2, No murmur Abdomen/GI:Soft, Non tender, Bowel sounds present Extremities/Musculoskelatal:normal inspection, no edema Neurologic/Psych:AAOX3, grossly no focal neurological deficits Skin: normal color, warm Results & Data Laboratory Results Short CBC 01/16/19 Range/Units 06:53 WBC 10.22 (4.8-10.8) K/uL Hgb 10.4 L (12.0-16.0) g/dL Hct 31.4 L (37-47) % Plt Count 376 (130-400) K/uL
[2018-03-18] MEDS: HYDROCODONE/ACETAMOPHEN 5/325MG TAB PO PRN (20:30)
[2018-03-19] MEDS: ACETAMINOPHEN 500 MG TAB PO PRN (03:53)
[2018-03-19] MEDS: HEPARIN SOD 5,000 UNIT/0.5 ML VIAL SQ SCH ×3 (05:21→21:26)
[2018-03-19] MEDS: ALBUT/IPRATROP 3MG/0.5MG NEB 3 ML VIAL NEB SCH ×6 (05:41→23:17)
[2018-03-19 06:13] LABS: Hematocrit (blood only) 33.6 % (37-47); Mean Corpuscular Hgb Conc 32.7 g/dL (32-36); Mean Corpuscular Volume 94.6 fL (80-100); Platelet Count 436 K/uL (130-400); RDW Coefficient of Variation 13.5 % (11.5-14.5); RDW Standard Deviation 46.6 fL (36.4-46.3); Red Blood Count 3.55 M/uL (4.2-5.4); White Blood Count 10.87 K/uL (4.8-10.8)
[2018-03-19 06:48] LABS: BUN Creatinine Ratio 34.2 (10-20); Calcium 8.8 mg/dl (8.5-10.1); Creatinine Clr Calc Pharmacy 72.1 ml/min; Est GFR (African American) 114.2; Est GFR (Non-African American) 98.6; Magnesium 2.2 mg/dl (1.8-2.4); Potassium 4.1 mmol/L (3.5-5.1)
[2018-03-19] MEDS: INSULIN ASPART 100 UNITS/ML 3 ML PEN SC SCH ×4 (08:35→20:39)
[2018-03-19] MEDS: GABAPENTIN 300 MG CAP PO SCH ×3 (08:36→20:41)
[2018-03-19] MEDS: CHOLECALCIFEROL 1,000 UNITS TAB PO SCH (08:36)
[2018-03-19] MEDS: ATORVASTATIN 10 MG TAB PO SCH (08:36)
[2018-03-19] MEDS: ASPIRIN 81 MG ECTAB PO SCH (08:36)
[2018-03-19] MEDS: ESCITALOPRAM OXALATE 10 MG TAB PO SCH (08:36)
[2018-03-19] MEDS: METOPROLOL SUCC 25MG EXT REL TAB PO SCH (08:37)
[2018-03-19] MEDS: predniSONE 20 MG TAB PO SCH (08:38)
[2018-03-19] MEDS: AZITHROMYCIN 250 MG TAB PO SCH (08:39)
[2018-03-19] MEDS: BUDESONIDE/FORMOTEROL FUMARATE 160/4.5 60 PUFFS/INHALER INH SCH ×2 (08:39→20:40)
[2018-03-19] MEDS: LORazepam 0.5 MG TAB PO PRN ×2 (10:20→20:44)
--- NOTE | 2018-03-19 10:38 | Cardiology Progress Note ---
Date of Service March 19, 2018 Assessment & Plan (1) COPD exacerbation: (2) NSTEMI (non-ST elevated myocardial infarction): Demand paced non-STEMI in the setting of profound respiratory illness. Medical management recommended, patient tolerating aspirin, metoprolol, atorvastatin thus far. Subjective Chief complaint: Follow-up shortness of breath Subjective: Patient notes profound fatigue. She believes her cough is a little bit better. When I asked her if she feels that she is at her baseline in terms of breathing she notes that she really has not felt well for months. I get the sense, as she has felt ill for quite some time. She has been seen by psychiatry since the last time I saw her, Lexapro was added for her anxiety, and I think this is a great idea. Telemetry reveals stable sinus rhythm without arrhythmia. Physical Exam 2 Vital Signs (Past 24 Hours): Last Vital Signs Temp 36.3 C L 03/19/18 07:30 Pulse 75 03/19/18 07:54 Resp 20 03/19/18 07:54 BP 106/55 L 03/19/18 07:30 Pulse Ox 93 03/19/18 07:54 Physical Exam: General: no acute distress and stated age, chronically ill in appearance Eyes: conjunctiva are pink and non-injected, sclera clear Neck: normal jugular venous pulse, no hepatojugular reflux Chest: normal shape and normal respiratory effort Lungs: clear to auscultation and percussion Cardiac Exam: - regular heart sounds, no murmurs, rubs, or gallops, no jugular venous distention Abdomen: abdomen soft, non-tender, no abnormal masses and no hepatosplenomegaly Musculoskeletal: no gait disturbance, no weakness Extremities: no edema and no cyanosis Neuro:awake, coversant, follows commands, no focal motor deficits
[2018-03-19] MEDS ORDERED: methylPREDNISolone 40 MG in SYRINGE 0 ML IV STA (14:11)
[2018-03-19] MEDS ORDERED: LORazepam 0.5 MG TAB PO STA (14:16)
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
[2018-03-19] MEDS ORDERED: IOVERSOL 100ml IV PRN (15:15)
--- NOTE | 2018-03-19 15:33 | CT Scan Report ---
CHEST CTA for PULMONARY ARTERIES CT DOSE: 303.74 mGycm HISTORY: Atypical chest pain. Pulmonary embolus. TECHNIQUE: Multiaxial CT images of the chest were performed following the intravenous administration of contrast to evaluate the pulmonary arteries. Maximal intensity projection images were also obtaine d. A dose lowering technique was utilized adhering to the principles of ALARA. COMPARISON STUDY: Chest 03/16/2018. FINDINGS: Normal caliber thoracic aorta with no evidence for dissection. The heart is normal in size. No pleural or pericardial effusions. No filling defects within the pulmonary arteries to suggest pul monary embolus. Trace mucoid material within the trachea. The remaining airways are patent. No pneumo thorax. Moderate emphysema. Punctate calcified granuloma within the base of the left lower lobe. No f ocal lung consolidations to suggest pneumonia. Subpleural nodularities within the right upper lobe po steriorly favors mild scarring. No suspicious lytic or blastic osseous lesions. The visualized liver, spleen, and adrenal glands are unremarkable. There is a 1.4 cm exophytic hypodense lesion within the right kidney. This favors a cyst. No mediastinal or hilar lymphadenopathy. IMPRESSION: 1. No evidence for pulmonary embolus. 2. Emphysema. Electronically signed by: Onesimo Berry M.D. 03/19/2018 3:31 PM
--- NOTE | 2018-03-19 16:09 | Hospitalist Progress Note ---
Date of Service March 19, 2018 Assessment & Plan (1) Acute respiratory failure with hypoxia and hypercapnia: Patient is a 57 yr female with H/O COPD and anxiety who presents with shortness of breath and acute respiratory failure. Secondary to COPD exacerbation Wean off oxygen as able Plan to add Duonebs and Spiriva upon discharge Qualifies for Nocturnal Oxygen--Continue Oxygen QHS (2) COPD exacerbation: Acute on chronic COPD Exacerbation Flu PCR negative CXR without evidence of infiltrates CTA: No PE, emphysema Continue Azithromycib, Duonebs, Prednisone Also on Symbicort Appreciate Pulm Input Counselled to quit smoking Needs 2 step prior to discharge Will Add Spiriva and plan to continue Duonebs upon discharge (3) NSTEMI (non-ST elevated myocardial infarction): Troponin elevated at 0.156 initially in the setting of respiratory distress Likely 2/2 demand ischemia EKG with sinus tachycardia, possible ST depression in anterolateral leads ECHO: infrarenal basilar akinesis: Apperas to be chronic due to scar Appreciate cardiology input Continue Aspirin, beta-vee and statin (4) Anemia: Hb stable Iron studies, B12 and folate level normal Monitor CBC (5) Anxiety: H/O anxiety and depression Was on multiple antipsychotic medications including Prozac, lithium, trazodone and Ativan as per patient Started on Lexapro Appreciate Psychiatry Input Ativan PRN DVT Px: Heparin SQ Code Status: Full Code Subjective Patient is seen and examined at bedside States feeling tired and feels short of breath with minimal exertion CTA negative for PE Less cough today Still has anxiety No other complaints Physical Exam 2 Vital Signs (Past 24 Hours): Last Vital Signs Temp 36.7 C 03/19/18 12:00 Pulse 78 03/19/18 15:35 Resp 20 03/19/18 15:35 BP 133/74 03/19/18 15:35 Pulse Ox 92 03/19/18 15:35 Physical Exam: Physical Exam: Vitals signs as noted above General Appearance:Moderately built and nourished, no apparent distress Head: normocephalic, Atraumatic Eyes: normal inspection, EOMI Neck: supple, Trachea midline Respiratory/Chest: Decreased breath sounds, B/L scattered rhonchi Cardiovascular: S1, S2, No murmur Abdomen/GI:Soft, Non tender, Bowel sounds present Extremities/Musculoskelatal:normal inspection, no edema Neurologic/Psych:AAOX3, grossly no focal neurological deficits Skin: normal color, warm Results & Data Laboratory Results Short CBC 03/19/18 Range/Units 05:51 WBC 10.87 H (4.8-10.8) K/uL Hgb 11.0 L (12.0-16.0) g/dL Hct 33.6 L (37-47) % Plt Count 436 H (130-400) K/uL BMP 03/19/18 05:51 Sodium 136 Potassium 4.1 Chloride 101 Carbon Dioxide 28 BUN 22 H Creatinine 0.65 Glucose 88 Calcium 8.8 Diagnostic Findings CTA: 1. No evidence for pulmonary embolus. 2. Emphysema.
[2018-03-19] MEDS: HYDROCODONE/ACETAMOPHEN 5/325MG TAB PO PRN (20:44)
[2018-03-20] MEDS: ALBUT/IPRATROP 3MG/0.5MG NEB 3 ML VIAL NEB SCH ×4 (03:12→15:05)
[2018-03-20] MEDS: HEPARIN SOD 5,000 UNIT/0.5 ML VIAL SQ SCH ×2 (06:24→13:25)
[2018-03-20 07:25] LABS: BUN Creatinine Ratio 34.3 (10-20); Creatinine Clr Calc Pharmacy 69.9 ml/min; Est GFR (African American) 113.1; Est GFR (Non-African American) 97.6; Potassium 4.9 mmol/L (3.5-5.1)
[2018-03-20] MEDS: INSULIN ASPART 100 UNITS/ML 3 ML PEN SC SCH ×2 (07:57→12:25)
[2018-03-20] MEDS: AZITHROMYCIN 250 MG TAB PO SCH (07:58)
[2018-03-20] MEDS: GABAPENTIN 300 MG CAP PO SCH ×2 (07:59→13:32)
[2018-03-20] MEDS: ESCITALOPRAM OXALATE 10 MG TAB PO SCH (07:59)
[2018-03-20] MEDS: METOPROLOL SUCC 25MG EXT REL TAB PO SCH (07:59)
[2018-03-20] MEDS: ATORVASTATIN 10 MG TAB PO SCH (07:59)
[2018-03-20] MEDS: predniSONE 20 MG TAB PO SCH (07:59)
[2018-03-20] MEDS: ASPIRIN 81 MG ECTAB PO SCH (07:59)
[2018-03-20] MEDS: CHOLECALCIFEROL 1,000 UNITS TAB PO SCH (07:59)
[2018-03-20] MEDS: BUDESONIDE/FORMOTEROL FUMARATE 160/4.5 60 PUFFS/INHALER INH SCH (07:59)
[2018-03-20] MEDS: LORazepam 0.5 MG TAB PO PRN ×2 (08:04→15:34)
[2018-03-20] MEDS: ACETAMINOPHEN 500 MG TAB PO PRN (08:04)
--- NOTE | 2018-03-20 14:49 | Hospitalist Progress Note ---
Date of Service March 20, 2018 Assessment & Plan (1) Acute respiratory failure with hypoxia and hypercapnia: Patient is a 57 yr female with H/O COPD and anxiety who presents with shortness of breath and acute respiratory failure. Secondary to COPD exacerbation Qualifies for Nocturnal Oxygen 2 Step: Doesn't qualify for Oxygen at rest or with ambulation Continue Oxygen QHS (2) COPD exacerbation: Acute on chronic COPD Exacerbation Flu PCR negative CXR without evidence of infiltrates CTA: No PE, emphysema Continue Azithromycin, Duonebs, Prednisone Also on Symbicort, Atrovent at home Appreciate Pulm Input Counselled to quit smoking 2 step: Didn't qualify for Oxygen (3) NSTEMI (non-ST elevated myocardial infarction): Troponin elevated at 0.156 initially in the setting of respiratory distress Likely 2/2 demand ischemia EKG with sinus tachycardia, possible ST depression in anterolateral leads ECHO: infrarenal basilar akinesis: Apperas to be chronic due to scar Appreciate cardiology input Continue Aspirin, beta-vee and statin (4) Anemia: Hb stable Iron studies, B12 and folate level normal Monitor CBC (5) Anxiety: H/O anxiety and depression Was on multiple antipsychotic medications including Prozac, lithium, trazodone and Ativan as per patient Started on Lexapro Appreciate Psychiatry Input Ativan PRN DVT Px: Heparin SQ Code Status: Full Code Subjective Patient is seen and examined at bedside Feels better today Prefers to be discharged home Less dyspnea and cough 2 step: Did not qualify for oxygen Still has anxiety No other complaints Physical Exam 2 Vital Signs (Past 24 Hours): Last Vital Signs Temp 36.3 C L 03/20/18 11:31 Pulse 77 03/20/18 13:23 Resp 16 03/20/18 13:23 BP 107/64 03/20/18 11:31 Pulse Ox 93 03/20/18 13:23 Physical Exam: Physical Exam: Vitals signs as noted above General Appearance:Moderately built and nourished, no apparent distress Head: normocephalic, Atraumatic Eyes: normal inspection, EOMI Neck: supple, Trachea midline Respiratory/Chest: Decreased breath sounds, B/L scattered rhonchi Cardiovascular: S1, S2, No murmur Abdomen/GI:Soft, Non tender, Bowel sounds present Extremities/Musculoskelatal:normal inspection, no edema Neurologic/Psych:AAOX3, grossly no focal neurological deficits Skin: normal color, warm Results & Data Laboratory Results [facility] 03/20/18 06:29 Sodium 134 L Potassium 4.9 D Chloride 100 Carbon Dioxide 34 H BUN 23 H Creatinine 0.67 Glucose 87 Calcium 9.0
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
--- NOTE | 2018-03-20 16:37 | Progress Note ---
DATE: 03/20/2018 TIME: 3:00 p.m. SUBJECTIVE: The patient is feeling somewhat better. She is less short of breath, although she is still short of breath. She is coughing less, and the mucus is no longer brown, but it is light color. She did a 2-step, and it did not show the need for portable oxygen at home. The patient herself is very anxious for discharge. Her significant other was with her during this evaluation. OBJECTIVE: GENERAL: The patient appeared comfortable at rest. She was less anxious than yesterday. Temperature is 36.3. There have been no fevers. CARDIOVASCULAR: Cardiac rate is 83 per minute. Rhythm is regular. Blood pressure 121/67. RESPIRATORY: Auscultation of the lung gale revealed decreased breath sounds. There is mild wheeze heard on expiration bilaterally. Respiratory rate was 16: Saturation 93% on room air at rest. EXTREMITIES: Showed no cyanosis, clubbing, or edema. LABORATORY DATA: Electrolytes today show sodium 134, potassium 4.9, chloride 100, bicarbonate 34. It may be notable that the prior bicarbonate was 28. BUN was 23, with creatinine 0.67. IMAGING: The patient had a CAT scan of the chest yesterday. This showed no evidence of pulmonary embolic disease. Granuloma was noted. Emphysema was noted. IMPRESSION: 1. Respiratory failure, acute on chronic with hypoxia and hypercarbia. 2. Chronic obstructive pulmonary disease exacerbation. 3. Non-ST elevation myocardial infarction. COMMENTS AND RECOMMENDATIONS: The patient is moderately improved. She is very anxious for discharge. She states she does not feel that she will get short of breath to the point where she needs to come back. Clinically indeed she seems better. Yesterday supposedly her saturations were decreased to 86% with just walking to the bathroom, and today, she did not desaturate from the report I received. Therefore, I do not object to discharge. The patient is concerned about her medicines because she does not have coverage yet from her change in insurance. She does have albuterol for her nebulizer, and I would suggest she do that 4 times per day. She has Atrovent HFA and I suggest she use that 2 puffs q.i.d. I do suggest prednisone 40 mg for three days, then 30 for 3, etc. I have no objection to the patient being set up for a followup with the pulmonary division. This could probably be made with SHANE Wilcox. I thank you for asking me to assist in her care.
== END 2018-03-20 16:17 | disposition home or self-care (01) | DRG 189 ==
LOC: ED 08:29 → 1E 09:36 → SUATTDRO 09:36 → 1E 10:04 → 2N 03-16 10:56

== ENCOUNTER 2021-07-12 15:28 | Inpatient (IN) ==
[2021-07-12] MEDS ORDERED: ACETAMINOPHEN 1,000 MG/100 ML VIAL IV STA (16:54)
[2021-07-12] MEDS ORDERED: KETOROLAC TROMETHAMINE 15 MG/ML VIAL IV STA (16:54)
[2021-07-12] MEDS ORDERED: oxyCODONE HCL IR 5 MG TAB (IMMEDIATE RELEASE) PO STA (17:01)
--- NOTE | 2021-07-12 17:30 | History & Physical Report ---
Date of Service July 12, 2021 Assessment & Plan (1) Bilateral hip pain: Plan: -Admit to [facility] -PT/OT consults placed, patient reporting that she has been nearly bedbound x2 months due to severe pain, was in the ER earlier this week for similar presentation. Patient is unable to have surgical procedure done on avascular necrosis of bilateral hips due to her poor pulmonary function, and needs of a lung transplant and therefore is unable to undergo sedation for such a procedure. -Pain control, bowel regimen ordered -CT of the lumbar spine conducted showing avascular necrosis of bilateral hips, CT pelvis is pending -Patient likely needs placement at SNF after acute hospital stay, CM to assist with discharge planning (2) Chronic anemia: Plan: - History of such, hemoglobin is 9.9, HCT = 31.8 today, platelet count is 410, will monitor with a.m. labs - No signs of bleeding (3) COPD, severe: (4) Chronic respiratory failure with hypoxia and hypercapnia: Plan: -Hypercarbic on admission with HCO3 level of 37 -Follows with Dr. Bennett as an outpatient with pulmonology -Continue home inhalers, Brovana, Ventolin and alfomoterol nebulizer as needed -No longer on prednisone (5) Anxiety: Plan: - Continue xanax HS prn for anxiety, sleep DVT ppx: - teds, scds CODE: DNR/DNI Dispo: From home, likely to remain in the hospital x 1-2 days, likely needs placement, CM to assist with discharge planning Admission and Anticipated Discharge Date Admission Date: Patient was seen and examined independently. Chart reviewed. Discussed case with Jessika GARCÍA and agree with her documentation. In summary, this is a 60 year old female with severe COPD on chronic home oxygen who presented to the ED with ongoing hip pain. She had avascular necrosis of bilateral hips but unable to have surgery due to poor pulmonary function and needs a lung transplant but unable to undergo sedation for such a procedure. She has been relatively bedbound for the past 2 months because of pain. She was on oxycodone but currently was unable to refill. In the ED, she was afebrile, hemodynamically stable. AAO, fair but decreased breath sounds bilaterally, heart sounds regular, abdomen benign. Pain better with pain medication. Xray lumbar spine and CT pelvis with no acute finding but findings suggestive of avascular necrosis of bilateral femoral heads with subchondral collapse and degenerative changes. Family unable to take care of her at home and seeking placement. Will admit for pain management, PT OT evaluation, CM consult for placement. Rest as per note above. History of Present Illness Chief Complaint: Hip pain Primary Care Provider: Grey Arrington DO This is a 60-year-old female with PMHx of severe COPD, acute on chronic respiratory failure, chronic hypoxic respiratory failure, anxiety, who presents to the ER with acute onset of hip pain. Pt reports this has gone from walking with the walker 3 weeks ago to being nearly bedbound. She has been able to get up and pivot with transfers from bed to bedside toilet, however due to her pain she is so slow and is at times unable to make it to bedside in time. She reports her pain is well controlled at rest, however feels incredibly debilitated. Her boyfriend who is present at bedside, reports that he is unable to care for her at home by himself. He works 12-hour shifts and otherwise she is home by herself. [facility] of aging has been involved in her care and they are currently awaiting a ramp to be built outside their home. They have not been able to look into home health or other pay [id number] caregiver. At this time they are looking for Jessica to go for placement in a facility for some rehab, with potential to stay there indefinitely. She reports her breathing is about the same as it always has been. She wears 2 L of oxygen via nasal cannula at rest and 3 L with minimal exertion. She has been using her nebulizers and Brovana inhaler and Ventolin inhaler as directed. She has been off of all steroids and narcotic medication for some time now. She also reports that she has not been taking diuretic daily, and only takes it whenever her legs get swollen. She feels that she is nearly incontinent and is unable to get to the toilet in time so does not take it. Patient follows with pulmonology as outpatient and recently established care with [facility] provider. Allergies Allergy/AdvReac Type Severity Reaction Status Date / Time Penicillins Allergy Severe hives Verified 07/12/21 18:39 albuterol [From ProAir HFA] AdvReac Intermediate Does not Verified 07/12/21 18:39 help symptoms -does nothing for her fluticasone AdvReac Intermediate Does Verified 07/12/21 18:39 [From Advair Diskus] nothing for her-does not help symptoms salmeterol AdvReac Intermediate Does Verified 07/12/21 18:39 [From Advair Diskus] nothing for her-does not help symptoms Home Medications Medication Instructions Recorded Confirmed Type atorvastatin 10 mg tablet 10 mg PO .Take 1 tablet daily tab 11/18/18 07/12/21 History metoprolol succinate 25 mg 25 mg PO DAILY tab 01/27/19 07/12/21 History tablet,extended release 24 hr meclizine 25 mg tablet 25 mg PO BID 10/18/19 07/12/21 History Oxygen Home #1 ea 10/26/19 05/18/21 Rx Wheelchair (Manual) #1 ea 11/12/19 05/18/21 Rx alprazolam 0.5 mg tablet 0.5 mg PO DAILY 12/08/19 07/12/21 History albuterol sulfate 90 mcg/actuation 2 inh INHALATION QID PRN #1 inhaler 02/26/21 07/12/21 Rx aerosol inhaler pregabalin 150 mg capsule 150 mg PO BID 05/18/21 07/12/21 History budesonide 0.25 mg/2 mL suspension 0.25 mg INHALATION BID #120 ml 06/12/21 07/12/21 Rx for nebulization azithromycin 250 mg tablet 250 mg PO MONWEDFRI #12 tab 07/05/21 07/12/21 Rx furosemide 20 mg tablet (Lasix) 20 mg PO DAILY PRN 07/12/21 07/12/21 History loratadine 10 mg tablet 10 mg PO DAILY 07/12/21 07/12/21 History Past Med/Surg History Medical History Anxiety Chronic back pain Chronic dyspnea Chronic hypoxemic respiratory failure COPD (chronic obstructive pulmonary disease) History of non-ST elevation myocardial infarction (NSTEMI) Lower extremity edema Severe muscle deconditioning Steroid myopathy Surgical History H/O hernia repair H/O tubal ligation H/O: section History of hysterectomy Family History Other Family history non-contributory Social History Smoking Status: Former smoker Number of Years Since Quit: 1; Second Hand Exposure: No; Hx Alcohol Use: No Hx Substance Use: No Preferred Language: Sinhala Communication Ability: Effective Surgical Dental Assistant Required: No Beliefs That Will Affect Care: None marital status: Current Living Situation: Significant Other Feels Safe at Home: Yes Assistive Devices: Glasses and Oxygen - Continuous Review of Systems Review of Systems: Constitutional: No fever, sweats or chills Eyes: No diplopia, no worsening or blurred vision ENT: normal hearing, no trouble swallowing Respiratory: No cough, sputum, dyspnea at rest or on exertion Cardiovascular: No chest pain, tightness or palpitations Abdomen: No pain, nausea, vomiting, diarrhea or constipation Musculoskeletal: + Severe bilateral hip pain with movement, otherwise no joint pain, calf pain, swelling Neurologic: + Generalized weakness, no numbness/tingling, + balance problems Psychiatric: + Anxiety, no depression Skin: No rash or itch Physical Exam Physical Exam: General: awake, alert, no apparent distress, appears much older than stated age, obese Head: Normocephalic, atraumatic ENT: PERRL, EOMI, no pharyngeal exudate, mucous membranes moist Chest: Diminished breath sounds throughout, + on 2L via NC, few expiratory wheeze on the right base, no rales or rhonchi Cardiac: Regular rate and rhythm, no murmur, no JVD, normal peripheral pulses, good capillary refill Abdominal: NABS x 4 quadrants, soft, nondistended, nontender to palpation, no rebound or guarding Extremities: Normal inspection, no peripheral edema or erythema, calfs nontender to palpation Psych: Normal mood and affect Neuro: AAO x 3, strength intact bilaterally and rated 3/5 in lower extremities, no motor deficits, speech is clear, no peripheral sensory deficits Results & Data Results & Data ([facility]) Vital Signs (Past 12 Hours) Vital Signs Temp Pulse Resp BP Pulse Ox 07/12/21 16:06 37.0 C 85 21 86/63 L 100 Laboratory Results 07/12/21 07/12/21 17:27 17:27 WBC 5.77 RBC 3.21 L Hgb 9.9 L Hct 31.9 L MCV 99.4 MCH 30.8 MCHC 31.0 L RDW Std Deviation 44.3 RDW Coeff of Jose 12.1 Plt Count 403 H MPV 9.7 Immature Gran % (Auto) 0.0 Neut % (Auto) 56.4 Lymph % (Auto) 32.4 [place] % (Auto) 9.2 Eos % (Auto) 1.7 Baso % (Auto) 0.3 Neut # (Auto) 3.25 Lymph # (Auto) 1.87 [place] # (Auto) 0.53 Eos # (Auto) 0.10 Baso # (Auto) 0.02 Immature Gran # (Auto) 0.00 Sodium 141 Potassium 4.2 Chloride 101 Carbon Dioxide 38 H Anion Gap 2 L BUN 12 Creatinine 0.57 L Est Cr Clr Drug Dosing 148.6 Est GFR ( Amer) 116.8 Est GFR (Non-Af Amer) 100.8 BUN/Creatinine Ratio 21.1 H Glucose 97 Calcium 9.3 Phosphorus 3.8 Magnesium 2.0 Total Bilirubin 0.4 AST 17 ALT 7 Alkaline Phosphatase 44 Total Protein 6.3 Albumin 3.9 Globulin 2.4 L Albumin/Globulin Ratio 1.6 Code Status & VTE Plan Code Status DNR-discussed with the patient and her boyfriend present at bedside
[2021-07-12 17:50] LABS: Basophils # (auto) 0.02 K/uL (0-0.2); Basophils % (auto) 0.3 %; Eosinophils % (auto) 1.7 %; Hematocrit (blood only) 31.9 % (37-47); Hemoglobin 9.9 g/dL (12.0-16.0); Lymphocytes # (auto) 1.87 K/uL (1.2-3.4); Lymphocytes % (auto) 32.4 %; Mean Corpuscular Hemoglobin 30.8 pg (25-34); Mean Corpuscular Volume 99.4 fL (80-100); Mean Platelet Volume 9.7 fL (7.4-10.4); Monocytes # (auto) 0.53 K/uL (0.11-0.59); Monocytes % (auto) 9.2 %; Neutrophils # (auto) 3.25 K/uL (1.4-6.5); Neutrophils % (auto) 56.4 %; Platelet Count 403 K/uL (130-400); RDW Coefficient of Variation 12.1 % (11.5-14.5); RDW Standard Deviation 44.3 fL (36.4-46.3); Red Blood Count 3.21 M/uL (4.2-5.4); White Blood Count 5.77 K/uL (4.8-10.8)
[2021-07-12 18:18] LABS: Albumin Globulin Ratio 1.6 (0.9-2); Albumin Level 3.9 gm/dl (3.4-5.0); BUN Creatinine Ratio 21.1 (10-20); Bilirubin,Total 0.4 mg/dl (0.2-1.0); Calcium 9.3 mg/dl (8.5-10.1); Creatinine Clr Calc Pharmacy 148.6 ml/min; Est GFR (African American) 116.8 ml/min; Est GFR (Non-African American) 100.8 ml/min; Globulin 2.4 gm/dl (2.5-4.0); Phosphorus 3.8 mg/dl (2.5-4.9); Potassium 4.2 mmol/L (3.5-5.1); Total Protein 6.3 gm/dl (6.0-8.3)
[2021-07-12] MEDS: SODIUM CHLORIDE 0.9% 500 ML IV SCH ×2 (18:22→23:51)
[2021-07-12] MEDS ORDERED: ATORVASTATIN 10 MG TAB PO SCH (18:45)
--- NOTE | 2021-07-12 19:09 | CT Scan Report ---
CT bony pelvis wo con CLINICAL HISTORY: b/l hip pain, arthritis, amb dysfunction TECHNIQUE: Multisequence, multiplanar MR images of the pelvis were obtained without contrast COMPARISON: None available at the time of this dictation. FINDINGS: Severe degenerative changes are seen in the bilateral hip joints. Degenerative changes are seen in th e lower lumbar spine. No acute fracture is seen. No joint effusion is seen. Visualized abdominal cont ents are unremarkable. Atherosclerotic disease is seen. IMPRESSION: Severe degenerative changes in bilateral hip joints. No evidence of acute fracture. ACT 112: Negative or not required by law. Electronically signed by: Chai Fulton M.D. 07/12/2021 7:08 PM
--- NOTE | 2021-07-12 21:43 | Emergency Department Note ---
Impression & Plan Osteoarthritis of hips, bilateral, Chronic respiratory failure with hypoxia and hypercapnia, COPD (chronic obstructive pulmonary disease), Ambulatory dysfunction ED Provider Note NAME: MARION BRUCE AGE: 60 SEX: F ARRIVES VIA: Ambulance INFORMANT: Patient ED PROVIDER(S): Rickey Davidson MD CHIEF COMPLAINT: Intractable pain, ambulatory dysfunction. PLAN: Disposition: Admit MEDICAL DECISION MAKING: The patient is a pleasant 60-year-old woman with a past medical history of chronic hypoxic respiratory failure/COPD, CAD, history of NSTEMI, steroid myopathy, arthritis who presents to the emergency department noted by her and from home for evaluation of persistent severe bilateral lower extremity/hip pain that they report has been severe for the past couple of months where she is unable to ambulate more than a couple of steps due to the pain and is mostly bedbound. She reports that she had seen her primary care doctor for these approximately 2 months ago and had been prescribed oxycodone but has not returned for evaluation or further assistance. 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 The patient reports that she is aware severity of her joint disease but understands that she is not a surgical candidate for hip replacements due to her severe lung disease. The patient and her report that they were no longer to care for her effectively at home given she is immobile. They do agree with plan for admission for further management and placement into fdc facility. Otherwise she denies fevers, chills, new cough or congestion, chest pain, shortness of breath from her baseline, nausea, vomiting, diarrhea or urinary symptoms. On arrival patient is chronically ill-appearing but no acute distress, afebrile with stable vital signs. Of note initial documented blood pressure of 80s/60s suspected to be erroneous as upon this provider's evaluation the cup was loose and had slid down her arm. The patient has significant pain elicited with passive and active range of motion of bilateral hips. WBC within normal limits. H/H and platelets similar to prior values. Chemistry without metabolic acidosis. BUN/creat> 20 consistent with patient's clinical dry appearance. Electrolytes and LFTs without significant abnormality. Covid-19 RNA, NAAT negative. CT of the pelvis was performed to further characterize the patient's known joint disease and demonstrates severe arthritis of bilateral hips. No acute fracture. Case was d/w Gilberto Bal PAC, with Dr. Kai Macias hospitalist who will evaluate the patient for admission. Triage Nursing notes reviewed and agree them. Prior medical records reviewed Vital Signs: reviewed and remarkable for no significant abnormalities Differential diagnosis: Infection, dehydration, metabolic abnormality, hypo/hyperglycemia, electrolyte disturbance, anemia, hypoxia, cardiac sources, intracerebral event, toxicologic, neurologic, as well as other pathologies. ER treatment provided: See below. Diagnostics interpreted by me: ECG: NSR, 83 bpm, no ectopy, no overt ST elevation or depression. Cardiac Monitoring: An order for continuous cardiac monitoring was placed and demonstrated NSR, 83 bpm, no ectopy. Laboratory studies: See below Imaging studies: See below Consultation(s): Case was d/w Gilberto Bal PAC, with Dr. Kai lopez who will evaluate the patient for admission. HPI: The patient is a pleasant 60-year-old woman with a past medical history of chronic hypoxic respiratory failure/COPD, CAD, history of NSTEMI, steroid myopathy, arthritis who presents to the emergency department noted by her and from home for evaluation of persistent severe bilateral lower extremity/hip pain that they report has been severe for the past couple of months where she is unable to ambulate more than a couple of steps due to the pain and is mostly bedbound. She reports that she had seen her primary care doctor for these approximately 2 months ago and had been prescribed oxycodone but has not returned for evaluation or further assistance. 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 The patient reports that she is aware severity of her joint disease but understands that she is not a surgical candidate for hip replacements due to her severe lung disease. The patient and her report that they were no longer to care for her effectively at home given she is immobile. They do agree with plan for admission for further management and placement into fdc facility. Otherwise she denies fevers, chills, new cough or congestion, chest pain, shortness of breath from her baseline, nausea, vomiting, diarrhea or urinary symptoms. ROS: See above HPI for pertinent positives & negatives. A total of 10 systems reviewed and were otherwise negative. VITALS:See Below PHYSICAL EXAMINATION: GENERAL: Awake, alert, chronically ill-appearing, uncomfortable in no distress HENT: Normocephalic, atraumatic. Oropharynx with dry mucous membranes and otherwise unremarkable. EYES: Normal conjunctiva. Sclera non-icteric. NECK: Supple. No nuchal rigidity. FROM. No JVD. RESPIRATORY: Scant bilateral wheezes. CARDIAC: Regular rate, normal rhythm. Extremities warm and well perfused. Pulses equal. ABDOMEN: Soft, non-distended. No tenderness to palpation. No rebound or guarding. No masses. RECTAL: Deferred. MUSCULOSKELETAL: Chest examination reveals no tenderness. The back is symmetrical on inspection without obvious abnormality. There is no CVA tenderness to palpation. No joint edema. significant pain elicited with passive and active range of motion of bilateral hips. LOWER EXTREMITIES: Calves are equal size bilaterally and non-tender. No edema. No discoloration. NEURO: Normal sensorium. No sensory or motor deficits noted. SKIN: No rash or jaundice noted. Rickey Davidson MD Past Med/Surg History Medical History Anxiety Chronic back pain Chronic dyspnea Chronic hypoxemic respiratory failure COPD (chronic obstructive pulmonary disease) History of non-ST elevation myocardial infarction (NSTEMI) Lower extremity edema Severe muscle deconditioning Steroid myopathy Surgical History H/O hernia repair H/O tubal ligation H/O: section History of hysterectomy Family History Other Family history non-contributory Social History Smoking Status: Former smoker Number of Years Since Quit: 1; Second Hand Exposure: No; Hx Alcohol Use: No Hx Substance Use: No Preferred Language: Stateless Communication Ability: Effective 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 Beliefs That Will Affect Care: None marital status: Current Living Situation: Significant Other Feels Safe at Home: Yes Assistive Devices: Glasses and Oxygen - Continuous Allergies Allergies Allergy/AdvReac Type Severity Reaction Status Date / Time Penicillins Allergy Severe hives Verified 07/12/21 18:39 albuterol [From ProAir HFA] AdvReac Intermediate Does not Verified 07/12/21 18:39 help symptoms -does nothing for her fluticasone AdvReac Intermediate Does Verified 07/12/21 18:39 [From Advair Diskus] nothing for her-does not help symptoms salmeterol AdvReac Intermediate Does Verified 07/12/21 18:39 [From Advair Diskus] nothing for her-does not help symptoms Home Meds Home Medications Medication Instructions Recorded Confirmed atorvastatin 10 mg tablet 10 mg PO .Take 1 tablet daily tab 11/18/18 07/12/21 metoprolol succinate 25 mg 25 mg PO DAILY tab 01/27/19 07/12/21 tablet,extended release 24 hr meclizine 25 mg tablet 25 mg PO BID 10/18/19 07/12/21 alprazolam 0.5 mg tablet 0.5 mg PO DAILY 12/08/19 07/12/21 pregabalin 150 mg capsule 150 mg PO BID 05/18/21 07/12/21 furosemide 20 mg tablet (Lasix) 20 mg PO DAILY PRN 07/12/21 07/12/21 loratadine 10 mg tablet 10 mg PO DAILY 07/12/21 07/12/21 Previous Rx's Medication Instructions Recorded Oxygen Home #1 ea 10/26/19 Wheelchair (Manual) #1 ea 11/12/19 albuterol sulfate 90 mcg/actuation 2 inh INHALATION QID PRN #1 inhaler 02/26/21 aerosol inhaler budesonide 0.25 mg/2 mL suspension 0.25 mg INHALATION BID #120 ml 06/12/21 for nebulization azithromycin 250 mg tablet 250 mg PO MONWEDFRI #12 tab 07/05/21 Results & Data (ED) Vital Signs Vital Signs - 24 hr 07/12/21 16:06 07/12/21 16:16 07/12/21 16:30 Temperature 37.0 C Temperature Source Oral Pulse Rate 85 86 85 Pulse Rate from SpO2 Sensor 86 86 Respiratory Rate 21 23 21 Respiratory Effort / Characteristics Non-Labored Spontaneous Respiratory Depth Normal Blood Pressure 86/63 L Blood Pressure Mean 70 Blood Pressure Position Semi-fowlers Pulse Oximetry 100 100 100 Oxygen Delivery Method Nasal Cannula Oxygen Flow Rate 2 Sepsis Recent Fever Within 48 Hours No Sepsis New/Unexplained Change in Mental Status No Sepsis Action Taken by Nursing No Action Required 07/12/21 16:50 07/12/21 17:00 07/12/21 17:30 Temperature Temperature Source Pulse Rate 85 82 80 Pulse Rate from SpO2 Sensor 84 82 81 Respiratory Rate 25 H 20 17 Respiratory Effort / Characteristics Respiratory Depth Blood Pressure 100/54 L 104/55 L 108/64 Blood Pressure Mean 69 71 78 Blood Pressure Position Pulse Oximetry 100 100 100 Oxygen Delivery Method Oxygen Flow Rate Sepsis Recent Fever Within 48 Hours Sepsis New/Unexplained Change in Mental Status Sepsis Action Taken by Nursing Laboratory Data Attestation: I reviewed the patient's lab results. Result diagrams: 07/12/21 17:27 07/12/21 17:27 Lab Results 07/12/21 07/12/21 Range/Units 17:27 17:27 WBC 5.77 (4.8-10.8) K/uL RBC 3.21 L (4.2-5.4) M/uL Hgb 9.9 L (12.0-16.0) g/dL Hct 31.9 L (37-47) % MCV 99.4 (80-100) fL MCH 30.8 (25-34) pg MCHC 31.0 L (32-36) g/dL RDW Std Deviation 44.3 (36.4-46.3) fL RDW Coeff of Jose 12.1 (11.5-14.5) % Plt Count 403 H (130-400) K/uL MPV 9.7 (7.4-10.4) fL Immature Gran % (Auto) 0.0 % Neut % (Auto) 56.4 % Lymph % (Auto) 32.4 % Leake % (Auto) 9.2 % Eos % (Auto) 1.7 % Baso % (Auto) 0.3 % Neut # (Auto) 3.25 (1.4-6.5) K/uL Lymph # (Auto) 1.87 (1.2-3.4) K/uL Leake # (Auto) 0.53 (0.11-0.59) K/uL Eos # (Auto) 0.10 (0-0.5) K/uL Baso # (Auto) 0.02 (0-0.2) K/uL Immature Gran # (Auto) 0.00 (0.00-0.02) K/uL Sodium 141 (136-145) mmol/L Potassium 4.2 (3.5-5.1) mmol/L Chloride 101 (98-107) mmol/L Carbon Dioxide 38 H (21-32) mmol/L Anion Gap 2 L (3-11) BUN 12 (6-23) mg/dl Creatinine 0.57 L (0.6-1.2) mg/dl Est Cr Clr Drug Dosing 148.6 ml/min Est GFR ( Amer) 116.8 ml/min Est GFR (Non-Af Amer) 100.8 ml/min BUN/Creatinine Ratio 21.1 H (10-20) Glucose 97 (70-99(Fasting)) mg/dl Calcium 9.3 (8.5-10.1) mg/dl Phosphorus 3.8 (2.5-4.9) mg/dl Magnesium 2.0 (1.7-2.4) mg/dl Total Bilirubin 0.4 (0.2-1.0) mg/dl AST 17 (13-39) U/L ALT 7 (7-52) U/L Alkaline Phosphatase 44 (34-104) U/L Total Protein 6.3 (6.0-8.3) gm/dl Albumin 3.9 (3.4-5.0) gm/dl Globulin 2.4 L (2.5-4.0) gm/dl Albumin/Globulin Ratio 1.6 (0.9-2) Administered Medications Alprazolam (Alprazolam 0.5 Mg Tablet) 0.5 mg PO HS STELLA Stop: 08/11/21 20:59 Last Admin: 07/12/21 23:17 Dose: 0.5 mg Documented by: [id number] Heparin Sodium (Porcine) (Heparin Sod 5,000 Unit/0.5 Ml Vial) 5,000 units SQ Q12 STELLA Stop: 08/11/21 22:22 Last Admin: 07/12/21 23:18 Dose: 5,000 units Documented by: [id number] Sodium Chloride (Nss 1000ml) 1,000 mls @ 125 mls/hr IV .Q8H STELLA Stop: 08/11/21 23:29 Last Admin: 07/12/21 23:31 Dose: 125 mls/hr Documented by: [id number] Morphine Sulfate (Morphine Sulfate 4 Mg/Ml 1 Ml Carp\Vial) 4 mg IV Q2H PRN PRN Reason: Severe Pain Stop: 07/26/21 22:22 Last Admin: 07/12/21 23:17 Dose: 4 mg Documented by: [id number] Pregabalin (Pregabalin 150 Mg Cap) 150 mg PO BID STELLA Stop: 08/11/21 20:59 Last Admin: 07/12/21 23:17 Dose: 150 mg Documented by: [id number] Discontinued Medications Atorvastatin Calcium (Atorvastatin 10 Mg Tab) 10 mg PO QAM STELLA Stop: 08/11/21 18:44 Last Admin: 07/12/21 23:11 Dose: Not Given Documented by: [id number] Acetaminophen (Ofirmev) 1,000 mg in 100 mls @ 400 mls/hr IV NOW STA Stop: 07/12/21 17:08 Last Infusion: 07/12/21 18:05 Dose: 0 mls/hr Documented by: [id number] Admin: 07/12/21 17:10 Dose: 400 mls/hr Documented by: [id number] Sodium Chloride (Nss) 500 mls @ 125 mls/hr IV .Q4H STELLA Stop: 08/11/21 16:59 Last Admin: 07/12/21 23:51 Dose: Not Given Documented by: [id number] Infusion: 07/12/21 22:15 Dose: 0 mls/hr Documented by: [id number] Admin: 07/12/21 18:22 Dose: 125 mls/hr Documented by: [id number] Ketorolac Tromethamine (Ketorolac Tromethamine 15 Mg/Ml Vial) 15 mg IV NOW STA Stop: 07/12/21 16:55 Last Admin: 07/12/21 17:10 Dose: 15 mg Documented by: [id number] Oxycodone HCl (Oxycodone Hcl Ir 5 Mg Tab (Immediate Release)) 5 mg PO NOW STA Stop: 07/12/21 17:02 Last Admin: 07/12/21 17:10 Dose: 5 mg Documented by: [id number] Imaging Data Radiologist's Impression: Pelvis CT 07/12/21 16:59 CT bony pelvis wo con CLINICAL HISTORY: b/l hip pain, arthritis, amb dysfunction TECHNIQUE: Multisequence, multiplanar MR images of the pelvis were obtained without contrast COMPARISON: None available at the time of this dictation. FINDINGS: Severe degenerative changes are seen in the bilateral hip joints. Degenerative changes are seen in the lower lumbar spine. No acute fracture is seen. No joint effusion is seen. Visualized abdominal contents are unremarkable. Atherosclerotic disease is seen. IMPRESSION: Severe degenerative changes in bilateral hip joints. No evidence of acute fracture. ACT 112: Negative or not required by law. Electronically signed by: Chai Fulton M.D. 07/12/2021 7:08 PM Discharge Plan Visit Data Chief Complaint: Hip Pain ED Provider: Rickey Davidson Discharge Problem: Osteoarthritis of hips, bilateral, Chronic respiratory failure with hypoxia and hypercapnia, COPD (chronic obstructive pulmonary disease), Ambulatory dysfunction Patient Disposition: Admitted As Inpatient Discharge Instructions Interventions: ED Discharge Assessment Last Done: 07/12/21 21:51 Discharge Problem: Osteoarthritis of hips, bilateral Qualifiers: Osteoarthritis type: unspecified Qualified Code(s): M16.0 - Bilateral primary osteoarthritis of hip COPD (chronic obstructive pulmonary disease) Qualifiers: COPD type: unspecified COPD Qualified Code(s): J44.9 - Chronic obstructive pulmonary disease, unspecified
[2021-07-12] MEDS ORDERED: bisacodyL 10 MG SUPP PR PRN (22:23)
[2021-07-12] MEDS ORDERED: ONDANSETRON INJ 2 MG/ML 2 ML VIAL IV PRN (22:23)
[2021-07-12] MEDS ORDERED: POLYETHYLENE (MIRALAX) 17 GM PACK PO PRN (22:23)
[2021-07-12] MEDS: MoRPHine SULFATE 4 MG/ML 1 ML CARP\\VIAL IV PRN (23:17)
[2021-07-12] MEDS: PREGABALIN 150 MG CAP PO SCH (23:17)
[2021-07-12] MEDS: ALPRAZolam 0.5 MG TABLET PO SCH (23:17)
[2021-07-12] MEDS: HEPARIN SOD 5,000 UNIT/0.5 ML VIAL SQ SCH (23:18)
[2021-07-12] MEDS: SODIUM CHLORIDE 0.9% 1000ML 1,000 ML IV SCH (23:31)
[2021-07-13] MEDS: SODIUM CHLORIDE 0.9% 1000ML 1,000 ML IV SCH ×2 (06:15→15:12)
[2021-07-13] MEDS: MoRPHine SULFATE 2 MG/ML CARP IV PRN (06:15)
[2021-07-13] MEDS: BUDESONIDE 0.25 MG/2 ML VIAL (PULMICORT) INH SCH ×2 (07:42→19:36)
[2021-07-13 08:32] LABS: Hemoglobin 9.1 g/dL (12.0-16.0); Mean Corpuscular Hemoglobin 30.8 pg (25-34); Mean Corpuscular Hgb Conc 31.4 g/dL (32-36); Mean Corpuscular Volume 98.3 fL (80-100); Mean Platelet Volume 9.6 fL (7.4-10.4); Platelet Count 359 K/uL (130-400); RDW Coefficient of Variation 12.6 % (11.5-14.5); RDW Standard Deviation 44.8 fL (36.4-46.3); Red Blood Count 2.95 M/uL (4.2-5.4)
[2021-07-13] MEDS: PREGABALIN 150 MG CAP PO SCH ×2 (08:32→21:21)
[2021-07-13] MEDS: ASPIRIN 81 MG ECTAB PO SCH (08:33)
[2021-07-13] MEDS: AZITHROMYCIN 250 MG TAB PO SCH (08:33)
[2021-07-13] MEDS: ATORVASTATIN 10 MG TAB PO SCH (08:34)
[2021-07-13] MEDS: LORATADINE 10 MG TAB PO SCH (08:34)
[2021-07-13] MEDS: METOPROLOL SUCC 25MG EXT REL TAB PO SCH (08:34)
[2021-07-13] MEDS: bisacodyL 5 MG TABEC PO SCH (08:35)
[2021-07-13] MEDS: HEPARIN SOD 5,000 UNIT/0.5 ML VIAL SQ SCH ×2 (08:35→21:21)
[2021-07-13 09:16] LABS: Albumin Globulin Ratio 1.6 (0.9-2); Albumin Level 3.4 gm/dl (3.4-5.0); Bilirubin,Total 0.3 mg/dl (0.2-1.0); Calcium 8.8 mg/dl (8.5-10.1); Creatinine Clr Calc Pharmacy 107.2 ml/min; Est GFR (African American) 117.5 ml/min; Est GFR (Non-African American) 101.3 ml/min; Globulin 2.1 gm/dl (2.5-4.0); Potassium 3.6 mmol/L (3.5-5.1); Total Protein 5.5 gm/dl (6.0-8.3)
--- NOTE | 2021-07-13 10:09 | Hospitalist Progress Note ---
Date of Service July 13, 2021 Assessment & Plan (1) Anxiety: Plan: - Continue xanax HS prn for anxiety, sleep DVT ppx: - teds, scds CODE: DNR/DNI Dispo: From home, likely to remain in the hospital x 1-2 days, likely needs placement, CM to assist with discharge planning (2) Lower extremity weakness: Plan: r/o Lumbar Spine Stenosis/Compression CT lumbar and cervical spine ordered will consult Ortho Spine PT/OT evaluation Avascular Necrosis BL Hip Ambulatory Dysfunction Ortho consulted COPD at baseline 2 L NC continue usual inhalers, nebs History of NSTEMI related to COPD exacerbation on Metoprolol, ASA, Lipitor DVT Px Heparin Disposition will need Rehab or SNF plan of care discussed with patient in detail and at length all questions answered she is understanding, agreeable, comfortable with the plan of care Admission and Anticipated Discharge Date Admission Date: July 12, 2021 Subjective ff up for BL leg weakness, etc seen resting in bed, not in distress states BL hip pain is better today still has BL LE weakness, and also reports urinary and bowel incotinence no leg numbness no changes with breathing no chest pain, dyspnea, palpitations, dizziness no other symptoms Review of Systems Review of Systems: all noted and negative except for above Physical Exam Physical Exam: General- oriented x 3, not in distress, speaks in sentences with no effort or accessory muscle use Head- atraumatic Eyes- PERRL, EOMI, anicteric ENT- oropharynx clear Neck- supple, no JVD, no adenopathy, no thyromegaly; carotids +2/2, no bruits appreciated Lungs- clear to auscultation bilaterally, no rales/wheezes Heart- normal rate, regular rhythm; no murmur, no gallop, no rub appreciated Abdomen- normal bowel sounds, nondistended, soft, nontender, no masses or hepatosplenomegaly Extremities- no pretibial edema, no calf tenderness; peripheral pulses intact Neuro- alert, oriented x 3; CN 2-12 grossly intact; motor 2/5 bilaterally;sensation 100% on all extremities; no other gross focal neurologic deficits Skin- warm & dry Results & Data Results & Data ([facility]) Vital Signs (Past 12 Hours) Vital Signs Temp Pulse Resp BP Pulse Ox 07/13/21 07:43 81 17 97 07/13/21 07:35 36.9 C 82 16 94/56 L 96 07/12/21 23:10 36.4 C L 81 18 117/81 97 all noted and reviewed including below
[2021-07-13] MEDS: POLYETHYLENE (MIRALAX) 17 GM PACK PO SCH (11:12)
--- NOTE | 2021-07-13 11:17 | CT Scan Report ---
CT cervical spine wo con CT DOSE: 439.01 mGycm CLINICAL HISTORY: 60 years-old Female with leg weakness, r/o stenosis, compression. Chronic neck kya n with lower extremity weakness COMPARISON: None. TECHNIQUE: Multiple axial CT images of the cervical spine were obtained without contrast. A dose low ering technique was utilized adhering to the principles of ALARA. FINDINGS: There is reversal the normal cervical lordosis, apex at C4-C5. Moderate to severe intervert ebral disc space narrowing at C4-C5, C5-C6 and C6 or C7. Moderate to advanced multilevel spondylitic spurring with uncovertebral hypertrophy and posterior disc osteophyte complex formations. Multilevel facet arthrosis, severe at C7-T1. Developmental enlargement of the bilateral C4 facets. 3 mm anteroli sthesis C3 on C4 is likely degenerative. No acute fracture or subluxation is identified. No endplate erosions. There is multilevel at least moderate neural foraminal narrowing. There is no high-grade ce ntral canal stenosis. There is at least [id number] central canal stenosis at C5-C6. Evaluation of the central canal and neuroforamina is better assessed by MRI. The cervical soft tissues appear unremarkable. Pulmonary emphysema. There is no pneumothorax. Calcif ied plaque of the carotid bulbs. No prevertebral edema. IMPRESSION: 1. No acute cervical spine fracture or subluxation. 2. Multilevel degenerative changes of the cervical spine. Evaluation of the central canal and neurofo ramina is better assessed by MRI. ACT 112: Negative or not required by law. The above report was generated using voice recognition software. It may contain grammatical, syntax o r spelling errors. Electronically signed by: Jose L Smith M.D. 07/13/2021 11:15 AM
--- NOTE | 2021-07-13 11:17 | CT Scan Report ---
CT lumbar spine wo con CLINICAL HISTORY: BL leg weakness, r/o spinal stenosis TECHNIQUE: Multidetector row helical CT of the lumbar spine was performed without administration of i ntravenous contrast. Coronal and sagittal reformations were obtained. Automated dose lowering techniq ues and/or adjustment according to patient size were utilized for this exam. CT DOSE: 649.10 mGycm Comparison: None available at the time of this dictation. FINDINGS: For counting purposes, the last complete intervertebral disc space is considered L5-S1. No acute fractures are identified. Multilevel degenerative changes are seen with severe degenerative disc disease at L4-L5 and L5-S1 with likely neural foraminal and canal stenosis. Vertebral body align ment is within normal limits. Surrounding soft tissues are unremarkable. IMPRESSION: Multilevel degenerative changes most evident at L4-L5 and L5-S1. If there is concern for neural idania inal or spinal stenosis, MRI can be performed. ACT 112: Negative or not required by law. Electronically signed by: Chai Fulton M.D. 07/13/2021 11:15 AM
[2021-07-13] MEDS: HYDROCODONE/ACETAMOPHEN 5/325MG TAB PO PRN ×2 (12:37→19:43)
[2021-07-13] MEDS: ACETAMINOPHEN 325 MG TAB PO PRN ×2 (12:38→20:51)
[2021-07-13] MEDS ORDERED: LORazepam 0.5 MG TAB PO PRN (13:23)
--- NOTE | 2021-07-13 15:20 | XRay Report ---
XR hip TANISHA 2v w pelvis CLINICAL HISTORY: Bilateral hip pain. Avascular necrosis. COMPARISON STUDY: CT pelvis 07/12/2021. FINDINGS: There is again noted mild flattening of the bilateral superior femoral heads with associate d chronic subchondral fractures. There is also subchondral sclerosis, cystic change and mild subchond ral lucency at the femoral heads. This is consistent with avascular necrosis with superimposed osteoa rthritis. No definite acute fracture or dislocation within the pelvis or hips. IMPRESSION: Redemonstration of the bilateral femoral head avascular necrosis with superimposed osteo arthritis. Mild flattening of the femoral heads consistent with chronic subchondral fractures ACT 112: Negative or not required by law. Electronically signed by: Onesimo Berry M.D. 07/13/2021 3:18 PM
--- NOTE | 2021-07-13 16:51 | Magnetic Resonance Report ---
CERVICAL SPINE MRI HISTORY: Neck pain. leg weakness, r/o spinal compression/stenosis TECHNIQUE: Multiplanar multisequence MRI of the cervical spine was performed without the use of contr ast. COMPARISON STUDY: Cervical spine CT 07/13/2021. FINDINGS: Suboptimal evaluation of the cervical spine due to mild motion artifact. There is mild levo scoliosis. There is mild reversal the normal lordotic curvature. There is 2 mm of retrolisthesis of C 3 on C4. No definite fractures identified within the cervical spine. Prevertebral soft tissues and th e C1-C2 interval are intact. The visualized posterior fossa is unremarkable. The cervical spinal cord demonstrates a normal signal intensity. There is moderate disc space narrowing at C4-C5, C5-C6, and C6-C7 with anterior osteophytes. C2-C3: No significant central canal or neural foraminal narrowing. C3-C4: Small broad-based posterior disc osteophyte complex without significant central canal or neura l foraminal narrowing. C4-C5: Broad-based posterior disc osteophyte complex resulting in complete effacement of the anterior thecal sac with mild cord deformity. This consistent with moderate central canal narrowing. The AP d iameter of the central canal is approximately 6 mm. There is also severe right and moderate left neur al foraminal narrowing due to the uncovertebral hypertrophy. C5-C6: There is a 3 mm focal central disc protrusion which abuts and moderately deforms the cord. In conjunction with the broad-based posterior disc osteophyte complex there is moderate to severe centra l canal narrowing with the AP diameter measuring less than 5 mm. There is moderate right and mild lef t neural foraminal narrowing due to the uncovertebral hypertrophy. C6-C7: Small broad-based posterior disc osteophyte complex resulting in effacement of the anterior th ecal sac with mild cord deformity. The AP diameter of the central canal is 7 mm consistent with moder ate central canal narrowing. There is severe bilateral neural foraminal narrowing due to the uncovert ebral hypertrophy. C7-T1: No significant central canal or neural foraminal narrowing. IMPRESSION: 1. Degenerative changes from C4 through C7 as described above resulting in moderate to severe central canal narrowing and bilateral neural foraminal narrowing. This is most pronounced at the C5-C6 level which demonstrates an associated 3 mm focal central disc protrusion. 2. Mild reversal the normal lordotic curvature likely due to long-standing degenerative change. 3. Mild levoscoliosis. ACT 112: Negative or not required by law. Electronically signed by: Onesimo Berry M.D. 07/13/2021 4:49 PM
[2021-07-13] MEDS: FORMOTEROL 20 MCG/2 ML VIAL NEB SCH (19:36)
[2021-07-13] MEDS: ALPRAZolam 0.5 MG TABLET PO SCH (21:21)
[2021-07-13 21:28] LABS: Appearance Urine Clear (Clear); Bacteria Urine Automated Negative (Negative); Bilirubin Urine Negative (Negative); Blood Urine 3+ (Negative); Color Urine Yellow; Epithelial Cell Urine Auto >30 /lpf (0-5); Glucose Urine UA Negative (Negative); Ketones Urine Negative (Negative); Leukocyte Esterase Urine 1+ (Negative); Nitrite Urine Negative (Negative); Protein Urine Negative (Negative); Specific Gravity Urine 1.023 (1.000-1.030); Urobilinogen Urine Negative (Negative); pH Urine 5.5 (4.5-7.5)
--- NOTE | 2021-07-13 21:47 | Electrocardiogram Report ---
Test Reason : Blood Pressure : / mmHG Vent. Rate : 083 BPM Atrial Rate : 083 BPM P-R Int : 146 ms QRS Dur : 080 ms QT Int : 392 ms P-R-T Axes : 073 076 080 degrees QTc Int : 460 ms Normal sinus rhythm Nonspecific T wave abnormality When compared with ECG of 08-JUL-2021 17:33, No significant change was found Confirmed by Dom Harris ([id number]) on 07/13/2021 9:47:23 PM Referred By: REFERRED SELF Confirmed By:Dom Harris
[2021-07-13] MEDS ORDERED: SULFAMETHOXAZOLE/TRIMETHOPRIM DS 800/160MG TAB PO SCH (22:30)
[2021-07-14] MEDS: SODIUM CHLORIDE 0.9% 1000ML 1,000 ML IV SCH ×4 (01:00→23:13)
[2021-07-14] MEDS: HYDROCODONE/ACETAMOPHEN 5/325MG TAB PO PRN ×5 (01:02→19:57)
[2021-07-14] MEDS: FORMOTEROL 20 MCG/2 ML VIAL NEB SCH ×2 (07:10→19:20)
[2021-07-14] MEDS: BUDESONIDE 0.25 MG/2 ML VIAL (PULMICORT) INH SCH ×2 (07:10→19:20)
[2021-07-14] MEDS: METOPROLOL SUCC 25MG EXT REL TAB PO SCH (08:31)
[2021-07-14] MEDS: ASPIRIN 81 MG ECTAB PO SCH (08:32)
[2021-07-14] MEDS: HEPARIN SOD 5,000 UNIT/0.5 ML VIAL SQ SCH ×2 (08:32→21:12)
[2021-07-14] MEDS: ATORVASTATIN 10 MG TAB PO SCH (08:32)
[2021-07-14] MEDS: LORATADINE 10 MG TAB PO SCH (08:32)
[2021-07-14] MEDS: POLYETHYLENE (MIRALAX) 17 GM PACK PO SCH (08:33)
[2021-07-14] MEDS: PREGABALIN 150 MG CAP PO SCH ×2 (08:42→21:12)
[2021-07-14] MEDS: bisacodyL 5 MG TABEC PO SCH (08:53)
--- NOTE | 2021-07-14 09:13 | Magnetic Resonance Report ---
LUMBAR SPINE MRI HISTORY: leg weakness, r/o spinal compression/stenosis TECHNIQUE: Multiplanar multisequence MRI of the lumbar spine was performed without the use of contras t. COMPARISON: CT lumbar spine 07/13/2021. FINDINGS: For the purpose of the report the L5-S1 disc space will be located on axial image 27 of 30. Suboptimal evaluation lumbar spine due to the motion artifact. This most pronounced on the axial imag es. There is straightening of the lumbar spine. There is severe disc space narrowing at L4-5 and L5-S 1 with small endplate osteophytes. The remaining disc spaces are served. The conus terminates at the L1 level. Endplate degenerative changes from L4 through S1. Increased T2 signal within the L4-5 and L 5-S1 disc spaces is likely due to the long-standing degenerative change. No significant paravertebral edema. The visualized sacrum is intact. Mild facet degenerative changes within the lumbar spine. The re is subcutaneous edema within the lumbar region which is likely chronic. L1-L2: No significant central canal or neural foraminal narrowing. L2-L3: No significant central canal or neural foraminal narrowing. L3-L4: Small broad-based posterior disc bulge without significant central canal or neural foraminal n arrowing. L4-L5: Broad-based posterior disc osteophyte complex with ligamentum and facet hypertrophy resulting in moderate central canal and moderate bilateral neural foraminal narrowing. The AP diameter of the c entral canal measures approximately 7.7 mm. L5-S1: Small broad-based posterior disc bulge without significant central canal narrowing. There is m oderate bilateral neural foraminal narrowing. IMPRESSION: 1. Motion artifact. 2. No fractures or subluxation within the lumbar spine. 3. Degenerative changes within the lower lumbar spine most pronounced at the L4-5 level which demonst rates moderate central canal and moderate bilateral neural foraminal narrowing. ACT 112: Negative or not required by law. Electronically signed by: Onesimo Berry M.D. 07/14/2021 9:11 AM
[2021-07-14] MEDS: LIDOCAINE 5% 1 PATCH TD SCH (11:50)
--- NOTE | 2021-07-14 13:51 | Hospitalist Progress Note ---
Date of Service July 14, 2021 Assessment & Plan (1) Lower extremity weakness: Plan: Likely secondary to spinal stenosis and avascular necrosis of the hip bilaterally MRI cervical and lumbar spine: 1. Degenerative changes from C4 through C7 as described above resulting in moderate to severe central canal narrowing and bilateral neural foraminal narrowing. This is most pronounced at the C5-C6 level which demonstrates an associated 3 mm focal central disc protrusion. 2. Mild reversal the normal lordotic curvature likely due to long-standing degenerative change. 3. Mild levoscoliosis. 1. Motion artifact. 2. No fractures or subluxation within the lumbar spine. 3. Degenerative changes within the lower lumbar spine most pronounced at the L4- 5 level which demonstrates moderate central canal and moderate bilateral neural foraminal narrowing. Patient's main goal is to be able to ambulate again and have hip/lower extremity pain control If surgery indicated, will consult pulmonary for preoperative evaluation Awaiting recommendations from general Ortho and spine services Continue as needed [place], and morphine IV Bowel regimen daily PT and OT evaluation COPD at baseline 2 L NC continue usual Pulmicort, formoterol nebulization, azithromycin 3 times a week Not in exacerbation History of NSTEMI related to COPD exacerbation on Metoprolol, ASA, Lipitor No cardiac symptoms DVT Px Heparin Disposition will need Rehab or SNF plan of care discussed with patient in detail and at length all questions answered she is understanding, agreeable, comfortable with the plan of care (2) Anxiety: Plan: - Continue xanax HS prn for anxiety, sleep CODE: DNR/DNI Dispo: Pending Will likely need rehab placement Admission and Anticipated Discharge Date Admission Date: July 12, 2021 Subjective Follow-up for bilateral hip pain, bilateral lower extremity pain and weakness, etc. Seen sitting up in bed, not in distress Reports significant pain on her right groin/thigh region Still feels weak in her legs bilaterally Current pain med regimen relieving the pain No new weakness or numbness Still having some urinary incontinence no chest pain, dyspnea, palpitations, dizziness no other symptoms Review of Systems Review of Systems: all noted and negative except for above Physical Exam Physical Exam: General- oriented x 3, not in distress, speaks in sentences with no effort or accessory muscle use Eyes- anicteric Neck- no JVD Lungs- clear breath sounds bilaterally, no rales/wheezes Heart- normal rate, regular rhythm; no murmurs Abdomen- normal bowel sounds, nondistended, soft, nontender Extremities- no pretibial edema, no calf tenderness Neuro- alert, oriented x 3; motor strength bilateral lower extremity 2/5 Skin- warm & dry Results & Data Results & Data ([facility]) Vital Signs (Past 12 Hours) Vital Signs Temp Pulse Resp BP Pulse Ox 07/14/21 07:49 37.0 C 72 16 99/64 L 98 07/14/21 07:12 78 20 98 all noted and reviewed including below
--- NOTE | 2021-07-14 19:56 | Consultation Report ---
DATE OF CONSULTATION: 07/14/2021. REASON FOR CONSULTATION: This is a 60-year-old female seen at the request of Dr. Reji Kim and Dr. Satnam Quinn regarding bilateral hip pain. HISTORY OF PRESENT ILLNESS: This is a 60-year-old female with history of advanced COPD, under the ca re of Dr. Smith and currently on lung transplantation list due to advanced pulmonary disease. She h as had over 8-12 months of severe worsening hip pain and pelvic pain to the point where she has been essentially bedbound for the last 2 months. She lives with her boyfriend, she is having increasing d ifficulty with ambulation, having increasing difficulty with helping to care for her. She presents n ow to the hospital and has been admitted with a known history of avascular necrosis of bilateral hips . Orthopedics has been consulted to assess the patient's condition for recommendations regarding hip pain. The patient is on chronic oxygen continuous usage 2 liters at rest, up to 3 liters with minim al exertion. She has been advised to avoid any type of sedation as this could be a severe risk for c ardiopulmonary collapse. The patient has limitations even with bed mobility due to her problems with exertion and with severe hip pain. She did admit that she had a prior steroid injection in her righ t hip several years ago, which did give her approximately 9-12 months of relief. PAST MEDICAL HISTORY: Anxiety, chronic back pain, chronic dyspnea, chronic hypoxemic respiratory valentin lure, COPD, non-ST elevation myocardial infarction, lower extremity edema, severe muscle deconditioni ng, steroid myopathy. PAST SURGICAL HISTORY: Hernia repair, tubal ligation, section and history of hysterectomy. ALLERGIES: PENICILLIN WITH HIVES, ALBUTEROL, FLUTICASONE AND SALMETEROL INTERMEDIATE REACTION. MEDICATIONS: Please note the medication list on medical record. SOCIAL HISTORY: She is a former smoker, [id number] smoker. 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 She quit smoking approximately a year ago. Denies any significant alcohol or drug use. She lives with her significant other. She is cur rently disabled. PHYSICAL EXAMINATION: This is a 60-year-old female, lying supine in hospital room bed. She has oxyg en nasal cannula with no acute distress 2 liters resting. Alert and oriented x3. Speech clear and f luent. She does have some dyspnea with a prolonged conversation. No chest pain. Limited examinatio n of the lower extremities demonstrate skin warm, dry and intact. Cap refill less than 2 seconds. S kin is dry. Dorsalis pedis and posterior tibial pulse are 2/4 bilaterally. Hip and knee motion is l imited due to pain related to the hips. Any type of position or reposition of the hips demonstrates significant discomfort with wincing. Limitation in exam due to patient discomfort, only able to achi gerardo limited range of motion on her own, assisted motion causes significant pain at approximately 60 d egrees of flexion, 20 degrees of external rotation, 0 degrees internal rotation and loss of approxima tely 4 degrees of extension. Imaging reviewed. Laboratory reviewed. Severe avascular necrosis with loss of joint space, flatteni ng of the femoral heads and early bone cyst formation. IMPRESSION: 1. Bilateral hip avascular necrosis with early collapse, bilateral hip osteoarthritis. 2. Advanced chronic obstructive pulmonary disease with limitation with any sedation or anesthetic us age. RECOMMENDATION: Consider intra-articular bilateral steroid injections with or without any sedation a s deemed appropriate by the pulmonary service and medical service. Unable to perform hip arthroplast y at this time, as would be the most appropriate course of care due to the patient's poor pulmonary f unction and deemed ultra risk for hip replacement. We will follow with you. Thank you for the opportunity to consult in care of this patient. Job ID: [id number]
[2021-07-14] MEDS: ALPRAZolam 0.5 MG TABLET PO SCH (21:12)
[2021-07-15] MEDS: SODIUM CHLORIDE 0.9% 1000ML 1,000 ML IV SCH ×2 (05:51→18:03)
[2021-07-15] MEDS: HYDROCODONE/ACETAMOPHEN 5/325MG TAB PO PRN ×3 (06:03→17:57)
[2021-07-15] MEDS: BUDESONIDE 0.25 MG/2 ML VIAL (PULMICORT) INH SCH ×2 (07:24→19:14)
[2021-07-15] MEDS: FORMOTEROL 20 MCG/2 ML VIAL NEB SCH ×2 (07:24→19:14)
[2021-07-15] MEDS: HEPARIN SOD 5,000 UNIT/0.5 ML VIAL SQ SCH ×2 (07:51→19:55)
[2021-07-15] MEDS: POLYETHYLENE (MIRALAX) 17 GM PACK PO SCH (07:51)
[2021-07-15] MEDS: METOPROLOL SUCC 25MG EXT REL TAB PO SCH (07:52)
[2021-07-15] MEDS: ATORVASTATIN 10 MG TAB PO SCH (07:52)
[2021-07-15] MEDS: LIDOCAINE 5% 1 PATCH TD SCH (07:53)
[2021-07-15] MEDS: ASPIRIN 81 MG ECTAB PO SCH (07:53)
[2021-07-15] MEDS: LORATADINE 10 MG TAB PO SCH (07:53)
[2021-07-15] MEDS: bisacodyL 5 MG TABEC PO SCH (07:54)
[2021-07-15] MEDS: PREGABALIN 150 MG CAP PO SCH ×2 (07:55→20:00)
--- NOTE | 2021-07-15 15:22 | Hospitalist Progress Note ---
Date of Service July 15, 2021 Assessment & Plan (1) Lower extremity weakness: Plan: Likely secondary to spinal stenosis and avascular necrosis of the hip bilaterally MRI cervical and lumbar spine: 1. Degenerative changes from C4 through C7 as described above resulting in moderate to severe central canal narrowing and bilateral neural foraminal narrowing. This is most pronounced at the C5-C6 level which demonstrates an associated 3 mm focal central disc protrusion. 2. Mild reversal the normal lordotic curvature likely due to long-standing degenerative change. 3. Mild levoscoliosis. 1. Motion artifact. 2. No fractures or subluxation within the lumbar spine. 3. Degenerative changes within the lower lumbar spine most pronounced at the L4- 5 level which demonstrates moderate central canal and moderate bilateral neural foraminal narrowing. Patient's main goal is to be able to ambulate again and have hip/lower extremity pain control If surgery indicated, will consult pulmonary for preoperative evaluation recommendations from general Ortho and spine services possible steroid injection on the hips per Ortho- under sedation? awaiting Spine Surgery recommendation will consult Pulm for possible pre-op/pre-procedural eval Continue as needed [place]- increase to 1-2tabs PRN, and morphine IV Bowel regimen daily PT and OT evaluation COPD at baseline 2 L NC continue usual Pulmicort, formoterol nebulization, azithromycin 3 times a week Not in exacerbation History of NSTEMI related to COPD exacerbation on Metoprolol, ASA, Lipitor No cardiac symptoms DVT Px Heparin Disposition will need Rehab or SNF plan of care discussed with patient in detail and at length all questions answered she is understanding, agreeable, comfortable with the plan of care (2) Anxiety: Plan: - Continue xanax HS prn for anxiety, sleep CODE: DNR/DNI Dispo: Pending Will likely need rehab placement Admission and Anticipated Discharge Date Admission Date: July 12, 2021 Subjective ff u for BL avascular necrosis, etc seen resting in bed, comfortable states she still has hip pain and R lower leg pain pain medication seems to be inadequate as per patient no new numbness, weakness or incontinence no changes with breathing no other symptoms Review of Systems Review of Systems: all noted and negative except for above Physical Exam Physical Exam: General- oriented x 3, not in distress, speaks in sentences with no effort or accessory muscle use Eyes- anicteric Neck- no JVD Lungs- diminished but clear breath sounds bilaterally, no rales/wheezes Heart- normal rate, regular rhythm; no murmurs Abdomen- normal bowel sounds, nondistended, soft, nontender Extremities- no pretibial edema, no calf tenderness Neuro- alert, oriented x 3; can move lower legs slightly better today Skin- warm & dry Results & Data Results & Data ([facility]) Vital Signs (Past 12 Hours) Vital Signs Temp Pulse Resp BP Pulse Ox 07/15/21 11:01 95 07/15/21 07:39 36.8 C 83 16 108/52 L 96 07/15/21 07:26 81 20 97 all noted and reviewed including below
[2021-07-15] MEDS ORDERED: SODIUM CHLORIDE 0.9% 1000ML 250 ML IV ONE (18:55)
[2021-07-15] MEDS: ALPRAZolam 0.5 MG TABLET PO SCH (19:53)
[2021-07-15] MEDS: MoRPHine SULFATE 2 MG/ML CARP IV PRN (19:59)
[2021-07-15] MEDS: MoRPHine SULFATE 4 MG/ML 1 ML CARP\\VIAL IV PRN (22:43)
[2021-07-16] MEDS: HYDROCODONE/ACETAMOPHEN 5/325MG TAB PO PRN ×2 (04:18→20:16)
[2021-07-16] MEDS: BUDESONIDE 0.25 MG/2 ML VIAL (PULMICORT) INH SCH ×2 (07:27→20:52)
[2021-07-16] MEDS: FORMOTEROL 20 MCG/2 ML VIAL NEB SCH ×2 (07:27→20:53)
[2021-07-16] MEDS: LORATADINE 10 MG TAB PO SCH (08:14)
[2021-07-16] MEDS: ATORVASTATIN 10 MG TAB PO SCH (08:14)
[2021-07-16] MEDS: ASPIRIN 81 MG ECTAB PO SCH (08:14)
[2021-07-16] MEDS: METOPROLOL SUCC 25MG EXT REL TAB PO SCH (08:14)
[2021-07-16] MEDS: POLYETHYLENE (MIRALAX) 17 GM PACK PO SCH (08:15)
[2021-07-16] MEDS: LIDOCAINE 5% 1 PATCH TD SCH (08:15)
[2021-07-16] MEDS: HEPARIN SOD 5,000 UNIT/0.5 ML VIAL SQ SCH ×2 (08:15→20:17)
[2021-07-16] MEDS: AZITHROMYCIN 250 MG TAB PO SCH (08:15)
[2021-07-16] MEDS: bisacodyL 5 MG TABEC PO SCH (08:20)
[2021-07-16] MEDS: PREGABALIN 150 MG CAP PO SCH ×2 (08:20→20:17)
[2021-07-16] MEDS: SODIUM CHLORIDE 0.9% 1000ML 1,000 ML IV SCH (09:59)
[2021-07-16] MEDS: MoRPHine SULFATE 4 MG/ML 1 ML CARP\\VIAL IV PRN ×2 (11:24→17:29)
--- NOTE | 2021-07-16 12:31 | Consultation ---
Date of Consultation July 16, 2021 Assessment & Plan (1) Lower extremity weakness: Dr. Rodney has reviewed imaging as well as case presentation. Patient has severe cervical and lumbar stenosis. Unfortunately she is a very poor surgical candidate in light of her end-stage pulmonary issues and currently on a waiting list for bilateral lung transplant. It appears she is unable to have any type of surgical procedure performed,Therefore very limited with her options from us. Would recommend conservative treatment in the form of pain management. Again I am unsure if she would be a candidate for steroid injection. This would be up to pain management's discretion. Ambulate ad marquita. I did would recommend referral to SNF/rehab facility upon discharge. Should she become a surgical candidate in the future, it is recommended that this performed at a tertiary care center. We will sign off for now. Thank You History of Present Illness Reason for Consultation: Cervical and lumbar stenosis Attending Physician: Reji Kim MD History of Present Illness Is a pleasant 60-year-old female that we are asked to see in consultation regarding cervical and lumbar stenosis. Patient has been steadily declining at home. She lives with her significant other. He is no longer able to care for her at home. She has basically been homebound for the past several years because of pulmonary issues as well as back and hip issues. She has known AVN of both hips. She is not a surgical candidate due to her end- stage pulmonary disease. Dr. King was consulted regarding her AVN. it appears they are considering a steroid injection/intra-articular hip injection if she is able to undergo a sedated procedure. She is currently on a lung transplant list.In regards to her neck she states last August she was in [facility] for consultation but again unable to have any type of surgical procedure due to her pulmonary issues. Current pain is lower back down the buttock, groin, thighs and shins. She states right leg is worse than left leg. She states she is basically homebound because of above-mentioned issues. She takes Tylenol for pain control. She is also pain management several years ago in [place]. She is also had some type of steroid injection again unable to decipher if this is hip or back by Dr. Calvert many years ago which provided 8+ months of relief. Denies bowel bladder dysfunction. Allergies Allergy/AdvReac Type Severity Reaction Status Date / Time Penicillins Allergy Severe hives Verified 07/12/21 18:39 albuterol [From ProAir HFA] AdvReac Intermediate Does not Verified 07/12/21 18:39 help symptoms -does nothing for her fluticasone AdvReac Intermediate Does Verified 07/12/21 18:39 [From Advair Diskus] nothing for her-does not help symptoms salmeterol AdvReac Intermediate Does Verified 07/12/21 18:39 [From Advair Diskus] nothing for her-does not help symptoms Home Medications Medication Instructions Recorded Confirmed Type atorvastatin 10 mg tablet 10 mg PO .Take 1 tablet daily tab 11/18/18 07/12/21 History metoprolol succinate 25 mg 25 mg PO DAILY tab 01/27/19 07/12/21 History tablet,extended release 24 hr meclizine 25 mg tablet 25 mg PO BID 10/18/19 07/12/21 History Oxygen Home #1 ea 10/26/19 05/18/21 Rx Wheelchair (Manual) #1 ea 11/12/19 05/18/21 Rx alprazolam 0.5 mg tablet 0.5 mg PO DAILY 12/08/19 07/12/21 History albuterol sulfate 90 mcg/actuation 2 inh INHALATION QID PRN #1 inhaler 02/26/21 07/12/21 Rx aerosol inhaler pregabalin 150 mg capsule 150 mg PO BID 05/18/21 07/12/21 History budesonide 0.25 mg/2 mL suspension 0.25 mg INHALATION BID #120 ml 06/12/21 07/12/21 Rx for nebulization azithromycin 250 mg tablet 250 mg PO MONWEDFRI #12 tab 07/05/21 07/12/21 Rx furosemide 20 mg tablet (Lasix) 20 mg PO DAILY PRN 07/12/21 07/12/21 History loratadine 10 mg tablet 10 mg PO DAILY 07/12/21 07/12/21 History Patient History Medical History Anxiety Chronic back pain Chronic dyspnea Chronic hypoxemic respiratory failure COPD (chronic obstructive pulmonary disease) History of non-ST elevation myocardial infarction (NSTEMI) Lower extremity edema Severe muscle deconditioning Steroid myopathy Surgical History H/O hernia repair H/O tubal ligation H/O: section History of hysterectomy Family History Other Family history non-contributory Social History Smoking Status: Former smoker Number of Years Since Quit: 1; Second Hand Exposure: No; Do You Dip or Chew Tobacco: No; Hx Alcohol Use: No Hx Substance Use: No Preferred Language: Dutch Communication Ability: Effective Surgical Endoscopist Required: No Beliefs That Will Affect Care: None marital status: Current Living Situation: Significant Other Other Information That Helps Us Care for You: No Feels Safe at Home: Yes Safety Concerns: Feels Safe At This Time Assistive Devices: Walker Assistive Devices Comment: pt. states she is unable to use walker at this time due to weakness Review of Systems Review of Systems: All systems reviewed & are unremarkable except as noted in HPI & below Physical Exam Physical Exam: Alert and oriented x3 Sitting up in bed Positive logrolling bilateral Strength intact bilateral lower extremity Results & Data ([facility]) Vital Signs (Past 12 Hours) Vital Signs Temp Pulse Resp BP Pulse Ox 07/16/21 07:44 36.9 C 82 16 101/65 98 07/16/21 07:27 75 18 98 Diagnostic Findings [place], [place] [phone] Magnetic Resonance Report Patient:MARION BRUCE Admit Date:07/12/21 MR#:[id number] Address1:[address] [place] [address] K[address] LAN[address] Acct ID:[id number] Address2: Date:1960 [facility] Zip:[place] [address] Age:60 Location:3N Sex:F Room/Bed:[facility] Att Phy:Reji Kim MD Diagnosis:ANEMIC Beatris Phy:Grey Arrington DO Service Date:07/13/21 Fam Phy: Interpreting Phy:Onesimo Berry MDAdmit Phy:Satnam Quinn MD Ordering Phy:Reji Kim MD cc: ~ CERVICAL SPINE MRI HISTORY: Neck pain. leg weakness, r/o spinal compression/stenosis TECHNIQUE: Multiplanar multisequence MRI of the cervical spine was performed without the use of contrast. COMPARISON STUDY: Cervical spine CT 07/13/2021. FINDINGS: Suboptimal evaluation of the cervical spine due to mild motion artifact. There is mild levoscoliosis. There is mild reversal the normal lordotic curvature. There is 2 mm of retrolisthesis of C3 on C4. No definite fractures identified within the cervical spine. Prevertebral soft tissues and the C1-C2 interval are intact. The visualized posterior fossa is unremarkable. The cervical spinal cord demonstrates a normal signal intensity. There is moderate disc space narrowing at C4-C5, C5-C6, and C6-C7 with anterior osteophytes. C2-C3: No significant central canal or neural foraminal narrowing. C3-C4: Small broad-based posterior disc osteophyte complex without significant central canal or neural foraminal narrowing. C4-C5: Broad-based posterior disc osteophyte complex resulting in complete effacement of the anterior thecal sac with mild cord deformity. This consistent with moderate central canal narrowing. The AP diameter of the central canal is approximately 6 mm. There is also severe right and moderate left neural foraminal narrowing due to the uncovertebral hypertrophy. C5-C6: There is a 3 mm focal central disc protrusion which abuts and moderately deforms the cord. In conjunction with the broad-based posterior disc osteophyte complex there is moderate to severe central canal narrowing with the AP diameter measuring less than 5 mm. There is moderate right and mild left neural foraminal narrowing due to the uncovertebral hypertrophy. C6-C7: Small broad-based posterior disc osteophyte complex resulting in effacement of the anterior thecal sac with mild cord deformity. The AP diameter of the central canal is 7 mm consistent with moderate central canal narrowing. There is severe bilateral neural foraminal narrowing due to the uncovertebral hypertrophy. C7-T1: No significant central canal or neural foraminal narrowing. IMPRESSION: 1. Degenerative changes from C4 through C7 as described above resulting in moderate to severe central canal narrowing and bilateral neural foraminal narrowing. This is most pronounced at the C5-C6 level which demonstrates an associated 3 mm focal central disc protrusion. 2. Mild reversal the normal lordotic curvature likely due to long-standing degenerative change. 3. Mild levoscoliosis. ACT 112: Negative or not required by law. Electronically signed by: Onesimo Berry M.D. 07/13/2021 4:49 PM Dictated:07/13/21 164 Transcribed: 07/13/21 164 [place], [place] [phone] Magnetic Resonance Report Patient:MARION BRUCE Admit Date:07/12/21 MR#:[id number] Address1:[address] [facility] KAYE LANIER Acct ID:[id number] Address2: Date:1960 [facility] Zip:[place] [address] Age:60 Location:3N Sex:F Room/Bed:[facility] Att Phy:Reji Kim MD Diagnosis:ANEMIC Beatris Phy:Grey Arrington DO Service Date:07/13/21 Fam Phy: Interpreting Phy:Onesimo Berry MDAdmit Phy:Satnam Quinn MD Ordering Phy:Reji Kim MD cc: ~ LUMBAR SPINE MRI HISTORY: leg weakness, r/o spinal compression/stenosis TECHNIQUE: Multiplanar multisequence MRI of the lumbar spine was performed wi thout the use of contrast. COMPARISON: CT lumbar spine 07/13/2021. FINDINGS: For the purpose of the report the L5-S1 disc space will be located on axial image 27 of 30. Suboptimal evaluation lumbar spine due to the motion artifact. This most pronounced on the axial images. There is straightening of the lumbar spine. There is severe disc space narrowing at L4-5 and L5-S1 with small endplate osteo phytes. The remaining disc spaces are served. The conus terminates at the L1 level. Endplate degenerative changes from L4 through S1. Increased T2 signal within the L4-5 and L5-S1 disc spaces is likely due to the long-standing degenerative change. No significant paravertebral edema. The visualized sacrum is intact. Mild facet degenerative changes within the lumbar spine. There is subcutaneous edema within the lumbar region which is likely chronic. L1-L2: No significant central canal or neural foraminal narrowing. L2-L3: No significant central canal or neural foraminal narrowing. L3-L4: Small broad-based posterior disc bulge without significant central canal or neural foraminal narrowing. L4-L5: Broad-based posterior disc osteophyte complex with ligamentum and facet hypertrophy resulting in moderate central canal and moderate bilateral neural foraminal narrowing. The AP diameter of the central canal measures approximately 7.7 mm. L5-S1: Small broad-based posterior disc bulge without significant central canal narrowing. There is moderate bilateral neural foraminal narrowing. IMPRESSION: 1. Motion artifact. 2. No fractures or subluxation within the lumbar spine. 3. Degenerative changes within the lower lumbar spine most pronounced at the L4- 5 level which demonstrates moderate central canal and moderate bilateral neural foraminal narrowing. ACT 112: Negative or not required by law. Electronically signed by: Onesimo Berry M.D. 07/14/2021 9:11 AM Dictated:07/14/21906 Transcribed: 07/14/21906 Document Auto-Saved [place], [place] [phone] CT Scan Report Patient:MARION BRUCE Admit Date:07/12/21 MR#:[id number] [facility] Acct ID:[id number] Address2: Date:1960 [facility] Zip:[place] [address] Age:60 Location:ED Sex:F Room/Bed: Att Phy: Diagnosis:HIP PAIN Beatris Phy:Grey Arrington DO Service Date:07/12/21 [facility] Phy: Interpreting Phy:Chai Fulton MDAdmit Phy: Ordering Phy:Rickey Davidson M.D. cc: ~ CT bony pelvis wo con CLINICAL HISTORY: b/l hip pain, arthritis, amb dysfunction TECHNIQUE: Multisequence, multiplanar MR images of the pelvis were obtained without contrast COMPARISON: None available at the time of this dictation. FINDINGS: Severe degenerative changes are seen in the bilateral hip joints. Degenerative changes are seen in the lower lumbar spine. No acute fracture is seen. No joint effusion is seen. Visualized abdominal contents are unremarkable. Atherosclerotic disease is seen. IMPRESSION: Severe degenerative changes in bilateral hip joints. No evidence of acute fracture. ACT 112: Negative or not required by law. Electronically signed by: Chai Fulton M.D. 07/12/2021 7:08 PM Dictated:07/12/211905 Transcribed: 07/12/211905
--- NOTE | 2021-07-16 18:38 | Hospitalist Progress Note ---
Date of Service July 16, 2021 Assessment & Plan (1) Lower extremity weakness: Plan: Likely secondary to spinal stenosis and avascular necrosis of the hip bilaterally MRI cervical and lumbar spine: 1. Degenerative changes from C4 through C7 as described above resulting in moderate to severe central canal narrowing and bilateral neural foraminal narrowing. This is most pronounced at the C5-C6 level which demonstrates an associated 3 mm focal central disc protrusion. 2. Mild reversal the normal lordotic curvature likely due to long-standing degenerative change. 3. Mild levoscoliosis. 1. Motion artifact. 2. No fractures or subluxation within the lumbar spine. 3. Degenerative changes within the lower lumbar spine most pronounced at the L4- 5 level which demonstrates moderate central canal and moderate bilateral neural foraminal narrowing. ------ Patient's main goal is to be able to ambulate again and have hip/lower extremity pain control If surgery indicated, will consult pulmonary for preoperative evaluation recommendations from general Ortho: discussed with Ortho PA Asael Myles: hip steroid injection under fluorouscopy possibly Friday will consult Pulmonary for pre-op eval not a surgical candidate per Ortho Spine Continue as needed [place]- 1-2tabs PRN, and morphine IV Bowel regimen daily PT and OT evaluation COPD at baseline 2 L NC continue usual Pulmicort, formoterol nebulization, azithromycin 3 times a week Not in exacerbation History of NSTEMI related to COPD exacerbation on Metoprolol, ASA, Lipitor No cardiac symptoms DVT Px Heparin Disposition will need Rehab or SNF plan of care discussed with patient in detail and at length all questions answered she is understanding, agreeable, comfortable with the plan of care (2) Anxiety: Plan: - Continue xanax HS prn for anxiety, sleep CODE: DNR/DNI Dispo: Pending Will likely need rehab placement Admission and Anticipated Discharge Date Admission Date: July 12, 2021 Subjective ff up for leg weakness, ambulatory dysfunction, BL hip avascular necrosis, etc seen resting in bed, comfortable states BL hip pain relieved by pain medication, better controlled BL legs still feel very weak no other symptoms Review of Systems Review of Systems: all noted and negative except for above Physical Exam Physical Exam: General- oriented x 3, not in distress, speaks in sentences with no effort or accessory muscle use Eyes- anicteric Neck- no JVD Lungs- diminished, but clear BS bilaterally, no rales/wheezes Heart- normal rate, regular rhythm; no murmurs Abdomen- normal bowel sounds, nondistended, soft, nontender Extremities- no pretibial edema, no calf tenderness Neuro- alert, oriented x 3; BL lower extremities: 2/5 motor strength, 50% sensation; no other gross new focal neurologic deficits Skin- warm & dry Results & Data Results & Data ([facility]) Vital Signs (Past 12 Hours) Vital Signs Temp Pulse Resp BP Pulse Ox 07/16/21 15:04 36.5 C 84 16 110/70 97 07/16/21 07:44 36.9 C 82 16 101/65 98 07/16/21 07:27 75 18 98 all noted and reviewed including below
--- NOTE | 2021-07-16 19:53 | CT Scan Report ---
CT tib/fib RT wo con CLINICAL HISTORY: leg cellulitis, r/o abscess, fluid collection TECHNIQUE: Multidetector row helical CT of the right knee was performed without intravenous contrast. Coronal and sagittal reformations were obtained. Automated dose lowering techniques and/or adjustmen t according to patient size were utilized for this examination. CT DOSE: 235.28 mGy.cm Comparison: None available at the time of this dictation. FINDINGS: The osseous structures are without fracture or dislocation. The joint spaces are maintained. No joint effusion is seen. Skin thickening is seen in the posterior calf. No drainable fluid collection is s een. IMPRESSION: Skin thickening in the posterior medial calf. No drainable fluid collection is seen. ACT 112: Negative or not required by law. Electronically signed by: Chai Fulton M.D. 07/16/2021 7:50 PM
[2021-07-16] MEDS: ALPRAZolam 0.5 MG TABLET PO SCH (20:17)
[2021-07-17] MEDS: SODIUM CHLORIDE 0.9% 1000ML 1,000 ML IV SCH (01:25)
[2021-07-17] MEDS: MoRPHine SULFATE 4 MG/ML 1 ML CARP\\VIAL IV PRN ×3 (01:25→17:46)
[2021-07-17] MEDS: BUDESONIDE 0.25 MG/2 ML VIAL (PULMICORT) INH SCH ×2 (07:50→18:59)
[2021-07-17] MEDS: FORMOTEROL 20 MCG/2 ML VIAL NEB SCH ×2 (07:51→18:59)
[2021-07-17] MEDS: ASPIRIN 81 MG ECTAB PO SCH (08:02)
[2021-07-17] MEDS: ATORVASTATIN 10 MG TAB PO SCH (08:03)
[2021-07-17] MEDS: bisacodyL 5 MG TABEC PO SCH (08:03)
[2021-07-17] MEDS: LIDOCAINE 5% 1 PATCH TD SCH (08:03)
[2021-07-17] MEDS: HEPARIN SOD 5,000 UNIT/0.5 ML VIAL SQ SCH (08:03)
[2021-07-17] MEDS: METOPROLOL SUCC 25MG EXT REL TAB PO SCH (08:03)
[2021-07-17] MEDS: LORATADINE 10 MG TAB PO SCH (08:03)
[2021-07-17] MEDS: POLYETHYLENE (MIRALAX) 17 GM PACK PO SCH (08:03)
[2021-07-17] MEDS: PREGABALIN 150 MG CAP PO SCH ×2 (08:06→20:24)
[2021-07-17 08:24] LABS: Hematocrit (blood only) 28.3 % (37-47); Mean Corpuscular Hgb Conc 31.8 g/dL (32-36); Mean Corpuscular Volume 100.7 fL (80-100); Mean Platelet Volume 10.1 fL (7.4-10.4); Platelet Count 332 K/uL (130-400); RDW Coefficient of Variation 12.6 % (11.5-14.5); RDW Standard Deviation 46.8 fL (36.4-46.3); Red Blood Count 2.81 M/uL (4.2-5.4); White Blood Count 3.95 K/uL (4.8-10.8)
[2021-07-17 08:52] LABS: BUN Creatinine Ratio 12.8 (10-20); Calcium 9.1 mg/dl (8.5-10.1); Creatinine Clr Calc Pharmacy 127.7 ml/min; Est GFR (African American) 124.4 ml/min; Est GFR (Non-African American) 107.4 ml/min; Potassium 3.6 mmol/L (3.5-5.1)
[2021-07-17 08:55] LABS: Basophils # (auto) 0.02 K/uL (0-0.2); Basophils % (auto) 0.5 %; Eosinophils # (auto) 0.19 K/uL (0-0.5); Eosinophils % (auto) 4.8 %; Lymphocytes # (auto) 2.16 K/uL (1.2-3.4); Lymphocytes % (auto) 54.7 %; Monocytes # (auto) 0.46 K/uL (0.11-0.59); Monocytes % (auto) 11.6 %; Neutrophils # (auto) 1.12 K/uL (1.4-6.5); Neutrophils % (auto) 28.4 %
--- NOTE | 2021-07-17 09:37 | Pain Management Consultation ---
Date of Consultation July 17, 2021 Assessment & Plan (1) Avascular necrosis of bones of both hips: (2) Bilateral hip pain: (3) Ambulatory dysfunction: (4) Lower extremity weakness: 1. Patient's predominant pain generator appears to be the bilateral hips associate with her avascular necrosis as her lumbar spine MRI findings appear to be in significant with single level spinal stenosis at L4-5 which appears to be mild only. Agree with Ortho recommendations to pursue bilateral intra-articular hip injections at this time. It appears unlikely that pursuing lumbar ANDRE would be beneficial. 2. Consider addition of celecoxib 100 mg twice daily if no contraindication in an attempt to diminish her bilateral hip pain and diminish reliance upon opiate analgesics given her respiratory status Thank you for allowing us to participate in the care of Mrs. Bruce History of Present Illness Reason for Consultation: Bilateral hip pain and lower extremity weakness with ambulatory dysfunction Requesting Physician: Neda Uriarte DO Attending Physician: Neda Uriarte DO History of Present Illness Mrs. Bruce is a 60-year-old obese white female who was admitted due to complaints of severe bilateral hip region pain right greater than left-sided and lower extremity weakness with ambulatory dysfunction. Patient has significant medical history for severe COPD on chronic home oxygen therapy with chronic respiratory failure with hypoxia and hypercapnia who has previously been on lung transplant list which has been deferred due to the need for 50 pound weight r eduction per the patient report. Patient reports some chronic difficulties with hip region pain which has progressively worsened recently and causing significant ambulatory dysfunction. The patient has been relatively bedbound over the past 2 months due to her pain and discomfort as well as ambulatory difficulties. She reports pain can travel into the lower extremities in nondermatomal patterns. Her most significant pain appears to be in the hip and proximal thigh region. Patient denies any bowel or bladder incontinence or saddle anesthesia. She denies foot drop or episodes of falling. Patient has known history of avascular necrosis of the bilateral hips. Ortho is considering pursuing intra-articular injections. She does have prior history of intra- articular injection with relief of symptoms on the right side lasting approximately 9-12 months per her report. Plan of care discussed with Dr. Thelma Garza. Pain Assessment Full Body Front + Back: 1. Right lateral hip and proximal thigh-nondermatomal 2. Left lateral hip and proximal thigh-nondermatomal 3. Lumbosacral spine-nonlocalized Pain scale - at its best (0-10): 2 Pain scale - at its worst (0-10): 6 Allergies Allergy/AdvReac Type Severity Reaction Status Date / Time Penicillins Allergy Severe hives Verified 07/12/21 18:39 albuterol [From ProAir HFA] AdvReac Intermediate Does not Verified 07/12/21 18:39 help symptoms -does nothing for her fluticasone AdvReac Intermediate Does Verified 07/12/21 18:39 [From Advair Diskus] nothing for her-does not help symptoms salmeterol AdvReac Intermediate Does Verified 07/12/21 18:39 [From Advair Diskus] nothing for her-does not help symptoms Home Medications Medication Instructions Recorded Confirmed Type atorvastatin 10 mg tablet 10 mg PO .Take 1 tablet daily tab 11/18/18 07/12/21 History metoprolol succinate 25 mg 25 mg PO DAILY tab 01/27/19 07/12/21 History tablet,extended release 24 hr meclizine 25 mg tablet 25 mg PO BID 10/18/19 07/12/21 History Oxygen Home #1 ea 10/26/19 05/18/21 Rx Wheelchair (Manual) #1 ea 11/12/19 05/18/21 Rx alprazolam 0.5 mg tablet 0.5 mg PO DAILY 12/08/19 07/12/21 History albuterol sulfate 90 mcg/actuation 2 inh INHALATION QID PRN #1 inhaler 02/26/21 07/12/21 Rx aerosol inhaler pregabalin 150 mg capsule 150 mg PO BID 05/18/21 07/12/21 History budesonide 0.25 mg/2 mL suspension 0.25 mg INHALATION BID #120 ml 06/12/21 07/12/21 Rx for nebulization azithromycin 250 mg tablet 250 mg PO MONWEDFRI #12 tab 07/05/21 07/12/21 Rx furosemide 20 mg tablet (Lasix) 20 mg PO DAILY PRN 07/12/21 07/12/21 History loratadine 10 mg tablet 10 mg PO DAILY 07/12/21 07/12/21 History Pain History Pain Intensity Pain scale - at its best (0-10): 2 Pain scale - at its worst (0-10): 6 Patient History Medical History (Updated 07/17/21 @ 12:13 by Jacob Castano PA-C) Anxiety Avascular necrosis of bones of both hips Chronic back pain Chronic dyspnea Chronic hypoxemic respiratory failure COPD (chronic obstructive pulmonary disease) History of non-ST elevation myocardial infarction (NSTEMI) Lower extremity edema Severe muscle deconditioning Steroid myopathy Surgical History H/O hernia repair H/O tubal ligation H/O: section History of hysterectomy Family History Other Family history non-contributory Social History Smoking Status: Former smoker Number of Years Since Quit: 1; Second Hand Exposure: No; Do You Dip or Chew Tobacco: No; Hx Alcohol Use: No Hx Substance Use: No Preferred Language: Marshallese Communication Ability: Effective Press Manager Required: No Beliefs That Will Affect Care: None marital status: Current Living Situation: Significant Other Other Information That Helps Us Care for You: No Feels Safe at Home: Yes Safety Concerns: Feels Safe At This Time Assistive Devices: Walker Assistive Devices Comment: pt. states she is unable to use walker at this time due to weakness Physical Exam Physical Exam: General: Patient sitting quietly in exam room in no acute distress. Speech and thought process appropriate. Mood and affect appropriate. Cognition intact. Patient obese and physically deconditioned. Head: Normocephalic and atraumatic. ENT: No evidence of nasal or oral mucosal lesions. Mucous membranes are moist. Oxygen in place via nasal cannula. Eyes: Pupils equal round reactive to light. Neck: Supple without adenopathy and full range of motion. Abdomen: Soft and nondistended. No organomegaly. Bowel sounds active. Back/spine: Loss of lordosis. Patient is tender to palpation of the lumbosacral region which is nonfocal. No focal midline, facet joint or SI joint tenderness. Slightly hyperalgesic response in the paravertebral and gluteal region musculature bilaterally. Lower extremities: Patient tender over the greater trochanteric region to direct palpation. Patient resistant to movement of the bilateral lower extremities due to reported pain with movement. Range of motion is limited passively and actively. Dorsi and plantar flexion was 4+/5 bilaterally. Dorsalis pedis and posterior tibial pulses were 2+ and equal bilaterally. No appreciable edema. Neurologic: Cranial nerves grossly intact. Ambulatory function not witnessed. Results ([facility]) Diagnostic Review MRI Findings: MARION BRUCE [id number] Allergy/Adv: Penicillins, albuterol, fluticasone, salmeterol (More) Close Lower Extremity CT (Signed) Chai Fulton - 07/16/21 Hip and Pelvis X-Ray (Signed) Onesimo Berry - 07/13/21 Lumbar Spine MRI (Signed) Onesimo Berry - 07/13/21 Cervical Spine MRI (Signed) Onesimo Berry - 07/13/[address] (Signed) Jose L Smith - 07/13/[address] (Signed) Chai Fulton - 07/13/[address] (Signed) Chai Fulton - 07/12/21 Lumbar Spine X-Ray (Signed) Moreno Fernandes - 07/08/21 Chest X-Ray (Signed) Moreno Fernandes - 07/08/21 Brain MRI (Signed) Roderick Pérez - 08/16/19 Videofluoroscopic Swallow (Signed) Lei Warren - 11/19/[address] (Signed) Luis Perez - 11/19/18 Chest X-Ray (Signed) Lei Warren - 10/20/18 Chest CTA (Signed) Onesimo Berry - 03/19/18 Chest X-Ray (Signed) Moreno Fernandes - 03/16/18 Chest X-Ray (Signed) Moreno Fernandes - 03/15/18 [place], [place] [phone] Magnetic Resonance Report Patient:MARION BRUCE Admit Date:07/12/21 MR#:[id number] Address1:[address] Acct ID:[id number] Address2: Date:1960 [facility] Zip:[place] [address] Age:60 Location:3N Sex:F Room/Bed:[facility] Att Phy:Reji Kim MD Diagnosis:ANEMIC Beatris Phy:Grey Arrington DO Service Date:07/13/21 [facility] Phy: Interpreting Phy:Onesimo Berry MDAdmit Phy:Satnam Quinn MD Ordering Phy:Reji Kim MD cc: ~ LUMBAR SPINE MRI HISTORY: leg weakness, r/o spinal compression/stenosis TECHNIQUE: Multiplanar multisequence MRI of the lumbar spine was performed wit hout the use of contrast. COMPARISON: CT lumbar spine 07/13/2021. FINDINGS: For the purpose of the report the L5-S1 disc space will be located on axial image 27 of 30. Suboptimal evaluation lumbar spine due to the motion artifact. This most pronounced on the axial images. There is straightening of the lumbar spine. There is severe disc space narrowing at L4-5 and L5-S1 with small endplate osteophytes. The remaining disc spaces are served. The conus terminates at the L1 level. Endplate degenerative changes from L4 through S1. Increased T2 signal within the L4-5 and L5-S1 disc spaces is likely due to the long-standing degenerative change. No significant paravertebral edema. The visualized sacrum is intact. Mild facet degenerative changes within the lumbar spine. There is subcutaneous edema within the lumbar region which is likely chronic. L1-L2: No significant central canal or neural foraminal narrowing. L2-L3: No significant central canal or neural foraminal narrowing. L3-L4: Small broad-based posterior disc bulge without significant central canal or neural foraminal narrowing. L4-L5: Broad-based posterior disc osteophyte complex with ligamentum and facet hypertrophy resulting in moderate central canal and moderate bilateral neural foraminal narrowing. The AP diameter of the central canal measures approximately 7.7 mm. L5-S1: Small broad-based posterior disc bulge without significant central canal narrowing. There is moderate bilateral neural foraminal narrowing. IMPRESSION: 1. Motion artifact. 2. No fractures or subluxation within the lumbar spine. 3. Degenerative changes within the lower lumbar spine most pronounced at the L4- 5 level which demonstrates moderate central canal and moderate bilateral neural foraminal narrowing. ACT 112: Negative or not required by law. Electronically signed by: Onesimo Berry M.D. 07/14/2021 9:11 AM Dictated:07/14/21 09 Transcribed: 07/14/21 09 Radiology Findings: [place], [place] [phone] XRay Report Patient:MARION BRUCE Admit Date:07/12/21 MR#:[id number] Address1[address] Acct ID:[id number] Address2: Date:1960 [facility] [address] Age:60 Location:3N Sex:F Room/Bed:[facility] Att Phy:Reji Kim MD Diagnosis:ANEMIC Beatris Phy:Grey Arrington DO Service Date:07/13/21 Fam Phy: Interpreting Phy:Onesimo Berry MDAdmit Phy:Satnam Quinn MD Ordering Phy:Juan Gastelum PA-C cc: ~ XR hip TANISHA 2v w pelvis CLINICAL HISTORY: Bilateral hip pain. Avascular necrosis. COMPARISON STUDY: CT pelvis 07/12/2021. FINDINGS: There is again noted mild flattening of the bilateral superior femoral heads with associated chronic subchondral fractures. There is also subchondral sclerosis, cystic change and mild subchondral lucency at the femoral heads. This is consistent with avascular necrosis with superimposed osteoarthritis. No definite acute fracture or dislocation within the pelvis or hips. IMPRESSION: Redemonstration of the bilateral femoral head avascular necrosis with superimposed osteoarthritis. Mild flattening of the femoral heads consistent with chronic subchondral fractures ACT 112: Negative or not required by law. Electronically signed by: Onesimo Berry M.D. 07/13/2021 3:18 PM Dictated:07/13/21 1507
--- NOTE | 2021-07-17 10:40 | Pulmonary Consultation ---
Date of Consultation July 17, 2021 Assessment & Plan (1) COPD, severe: Patient without signs of COPD exacerbation. Continue current maintenance inhalers and supplemental oxygen. Agree with holding off on elective surgery given chronic lung disease. Surgery would preferably be pursued in a tertiary center given her complex issues. (2) Chronic respiratory failure with hypoxia and hypercapnia: Continue supplemental oxygen to maintain saturations of 88 to 92% as this is a medical necessity. Continue low-dose diuretic therapy to offload the right ventricle. Thank you for the consultation. Please call with questions. History of Present Illness Reason for Consultation: History of COPD Attending Physician: eNda Uriarte DO History of Present Illness 60-year-old female with a past medical history of gold class D COPD who presented to the hospital due to severe hip pain. She was seen by me in the pulmonary office on 05/18/2021. At that time she was started on 20 mg of Lasix and tapered off her prednisone. She was evaluated by orthopedic surgery for surgery, but they felt that she is too high risk given her underlying lung disease. She is currently being evaluated by pain management for possible injection. Patient notes that her COPD symptoms are stable and he has remained on her current nebulizer regimen without any significant change. She denies any worsening cough or shortness of breath. She did have some mucus earlier today which has resolved. She was currently laying in bed. She notes severe back and lower extremity pain which is chronic for her. Allergies Allergy/AdvReac Type Severity Reaction Status Date / Time Penicillins Allergy Severe hives Verified 07/12/21 18:39 albuterol [From ProAir HFA] AdvReac Intermediate Does not Verified 07/12/21 18:39 help symptoms -does nothing for her fluticasone AdvReac Intermediate Does Verified 07/12/21 18:39 [From Advair Diskus] nothing for her-does not help symptoms salmeterol AdvReac Intermediate Does Verified 07/12/21 18:39 [From Advair Diskus] nothing for her-does not help symptoms Home Medications Medication Instructions Recorded Confirmed Type atorvastatin 10 mg tablet 10 mg PO .Take 1 tablet daily tab 11/18/18 07/12/21 History metoprolol succinate 25 mg 25 mg PO DAILY tab 01/27/19 07/12/21 History tablet,extended release 24 hr meclizine 25 mg tablet 25 mg PO BID 10/18/19 07/12/21 History Oxygen Home #1 ea 10/26/19 05/18/21 Rx Wheelchair (Manual) #1 ea 11/12/19 05/18/21 Rx alprazolam 0.5 mg tablet 0.5 mg PO DAILY 12/08/19 07/12/21 History albuterol sulfate 90 mcg/actuation 2 inh INHALATION QID PRN #1 inhaler 02/26/21 07/12/21 Rx aerosol inhaler pregabalin 150 mg capsule 150 mg PO BID 05/18/21 07/12/21 History budesonide 0.25 mg/2 mL suspension 0.25 mg INHALATION BID #120 ml 06/12/21 07/12/21 Rx for nebulization azithromycin 250 mg tablet 250 mg PO MONWEDFRI #12 tab 07/05/21 07/12/21 Rx furosemide 20 mg tablet (Lasix) 20 mg PO DAILY PRN 07/12/21 07/12/21 History loratadine 10 mg tablet 10 mg PO DAILY 07/12/21 07/12/21 History Patient History Medical History Anxiety Chronic back pain Chronic dyspnea Chronic hypoxemic respiratory failure COPD (chronic obstructive pulmonary disease) History of non-ST elevation myocardial infarction (NSTEMI) Lower extremity edema Severe muscle deconditioning Steroid myopathy Surgical History H/O hernia repair H/O tubal ligation H/O: section History of hysterectomy Family History Other Family history non-contributory Social History Smoking Status: Former smoker Number of Years Since Quit: 1; Second Hand Exposure: No; Do You Dip or Chew Tobacco: No; Hx Alcohol Use: No Hx Substance Use: No Preferred Language: Ecuadorean Communication Ability: Effective Tax Manager Cpa Required: No Beliefs That Will Affect Care: None marital status: Current Living Situation: Significant Other Other Information That Helps Us Care for You: No Feels Safe at Home: Yes Safety Concerns: Feels Safe At This Time Assistive Devices: Walker Assistive Devices Comment: pt. states she is unable to use walker at this time due to weakness Review of Systems Review of Systems: All systems reviewed & are unremarkable except as noted in HPI & below Physical Exam Physical Exam: Constitutional: Patient appears to be of their stated age. Patient is in no apparent distress. Patient is well-developed. Eyes: Pupils are equal round and reactive to light. Conjunctivae are normal. Anicteric sclera. Ears nose, mouth and throat: Mallampati class 2. Normal posterior oropharynx. Uvula is midline. Neck: Trachea is midline. Visual inspection is normal. Respiratory: Prolonged phase of exhalation. Diminished bilaterally. Cardiovascular: Regular rate and rhythm. No murmurs. No edema. Gastrointestinal: Normal bowel sounds, soft, nontender and nondistended. No hepatosplenomegaly noted. Musculoskeletal: No cyanosis. Patient is able to move all extremities. Skin: No rashes, warm dry and intact. Neurologic: No obvious focal neurological deficits seen. Psychiatric: Alert and oriented x3 with a euthymic affect. Results & Data Results & Data ([facility]) Vital Signs (Past 12 Hours) Vital Signs Temp Pulse Pulse Resp BP Pulse Ox 07/17/21 07:52 36.7 C 73 73 16 109/64 98 07/17/21 07:51 77 17 97 PG Care Time/CCT Total # of Minutes Spent Total Time Spent with Patient: Total time spent is greater than 50% in coordination of care (as documented) at patient's floor/unit and/or counseling patient: Coding Level of Care Code 66136 Initial Inpt Care Lvl 2 Diagnoses COPD, severe J44.9 Chronic respiratory failure with hypoxia and hypercapnia J96.11; J96.12
--- NOTE | 2021-07-17 19:34 | Hospitalist Progress Note ---
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 MRI cervical and lumbar spine: 1. Degenerative changes from C4 through C7 as described above resulting in moderate to severe central canal narrowing and bilateral neural foraminal narrowing. This is most pronounced at the C5-C6 level which demonstrates an associated 3 mm focal central disc protrusion. 2. Mild reversal the normal lordotic curvature likely due to long-standing degenerative change. 3. Mild levoscoliosis. 1. Motion artifact. 2. No fractures or subluxation within the lumbar spine. 3. Degenerative changes within the lower lumbar spine most pronounced at the L4- 5 level which demonstrates moderate central canal and moderate bilateral neural foraminal narrowing. ------ Generally bilatera hip replacement would be the treatment, however, she is high risk from a pulmonary status for an elective surgery. Ortho is planning to attempt bilateral steroid injections. Goal in patient's mind is to be in less pain, with questionable ability to move. ? Continues on Mark 2 tabs every few hours which is working for her. She isn't interested in other treatments although is open to trial of celebrex per pain management's suggestion. She de clines PT and OT today. COPD: cronic, stable and not in exacerbation. 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 Cymbalta daily. Caution with using this and narcotics 2/2 polypharmacy in patient with respiratory issues at baseline. DVT Px Heparin Disposition will need Rehab or SNF Neda Uriarte DO [place] Hospitalist Admission and Anticipated Discharge Date Admission Date: July 12, 2021 Subjective ff up for leg weakness, ambulatory dysfunction, BL hip avascular necrosis, etc lying supine in bed, at bedside she s upset and appears overwhelmed she is angry at various different providers and talked about how she kicked the physcial therapist out of the room she feels neglected with regard to her pain for 4 years, saying that narcotics are the only thing that has helped and no one was willing to give her this as outpatient she reports having tried multiple agents in the past for pain control and each things I asked she seemed to get more upset at. She doesn't remember seeing pain management "I don't care how anyone else feels about anything" Review of Systems Review of Systems: All systems were reviewed and negative except as indicated above. Physical Exam Physical Exam: CONSTITUTIONAL: obese vitals as above, generally lying supine in NAD EYES: EOMI bilaterally, PERRL, normal conjuctivae, no scleral icterus, no fundoscopic abnormality ENT: external ear and nose normal, oropharynx clear, no TM abnormality, no maxillary or ethmoid sinus tenderness NECK: trachea midline, no lymphadenopathy, normal thyroid RESPIRATORY: clear to auscultation bilaterally, no crackles, rales or wheezes, normal respiratory effort CARDIOVASCULAR: regular rate and rhythm, S1 and 2 heard without murmurs, gallops or rubs, no JVD, no peripheral edema CHEST: inspection of chest was normal GASTROINTESTINAL: soft, nontender, ND, no guarding MUSCULOSKELETAL: generalized weakness with apparent strength in her legs, but very limited ROM even with passive movement 2/2 severe pain, head is normocephalic and atraumatic SKIN: warm and dry NEUROLOGIC: patellar DTRs 2+ bilat. no facial palsy, no dysarthria. Touch, pain and proprioception normal. CN 2-12 grossly intact, no sensory deficit, normal cognition, normal speech, no tremor PSYCHIATRIC: alert oriented to person, place and time. tearful and angry at times. Results & Data Results & Data ([facility]) Vital Signs (Past 12 Hours) Vital Signs Temp Pulse Pulse Resp BP BP Pulse Ox 07/17/21 19:01 81 18 95 07/17/21 15:52 36.5 C 80 18 116/65 96 07/17/21 07:52 36.7 C 73 73 16 109/64 98 07/17/21 07:51 77 17 97 Laboratory Results Short CBC 07/17/21 Range/Units 07:52 WBC 3.95 L (4.8-10.8) K/uL Hgb 9.0 L (12.0-16.0) g/dL Hct 28.3 L (37-47) % Plt Count 332 (130-400) K/uL BMP 07/17/21 07:52 Sodium 142 Potassium 3.6 Chloride 104 Carbon Dioxide 36 H BUN 6 Creatinine 0.47 L Glucose 98 Calcium 9.1 Diagnostic Findings Lower Extremity CT 07/16/21 17:36 CT tib/fib RT wo con CLINICAL HISTORY: leg cellulitis, r/o abscess, fluid collection TECHNIQUE: Multidetector row helical CT of the right knee was performed without intravenous contrast. Coronal and sagittal reformations were obtained. Automated dose lowering techniques and/or adjustment according to patient size were utilized for this examination. CT DOSE: 235.28 mGy.cm Comparison: None available at the time of this dictation. FINDINGS: The osseous structures are without fracture or dislocation. The joint spaces are maintained. No joint effusion is seen. Skin thickening is seen in the posterior calf. No drainable fluid collection is seen. IMPRESSION: Skin thickening in the posterior medial calf. No drainable fluid collection is seen. ACT 112: Negative or not required by law. Electronically signed by: Chai Fulton M.D. 07/16/2021 7:50 PM Medications Administered Current Inpatient Medications Acetaminophen (Acetaminophen 325 Mg Tab) 650 mg PO Q4H PRN PRN Reason: Mild Pain Stop: 08/11/21 22:22 Last Admin: 07/13/21 20:51 Dose: 650 mg Documented by: Hydrocodone Bitart/Acetaminophen (Hydrocodone/Acetamophen 5/325mg Tab) 1 - 2 tab PO Q6 PRN PRN Reason: MODERATE-SEVERE PAIN Stop: 07/27/21 09:29 Last Admin: 07/16/21 20:16 Dose: 2 tab Documented by: Albuterol (Albuterol Hfa 8 Gm Inhaler) 2 puffs INH QID PRN PRN Reason: shortness of breath or wheezing Stop: 08/11/21 18:32 Alprazolam (Alprazolam 0.5 Mg Tablet) 0.5 mg PO HS [facility] Stop: 08/11/21 20:59 Last Admin: 07/16/21 20:17 Dose: 0.5 mg Documented by: Aspirin (Aspirin 81 Mg Ectab) 81 mg PO DAILY [facility] Stop: 08/12/21 08:59 Last Admin: 07/17/21 08:02 Dose: 81 mg Documented by: Atorvastatin Calcium (Atorvastatin 10 Mg Tab) 10 mg PO QAM [facility] Stop: 08/12/21 08:59 Last Admin: 07/17/21 08:03 Dose: 10 mg Documented by: Azithromycin (Azithromycin 250 Mg Tab) 250 mg PO MoWeFr@0900 [facility] Stop: 08/12/21 08:59 Last Admin: 07/16/21 08:15 Dose: 250 mg Documented by: Bisacodyl (Bisacodyl 5 Mg Tabec) 5 mg PO DAILY [facility] Stop: 08/12/21 08:59 Last Admin: 07/17/21 08:03 Dose: Not Given Documented by: Bisacodyl (Bisacodyl 10 Mg Supp) 10 mg AL DAILY PRN PRN Reason: Constipation Stop: 08/11/21 22:22 Budesonide (Budesonide 0.25 Mg/2 Ml Vial (Pulmicort)) 0.25 mg INH BIDR [facility] Stop: 08/12/21 08:59 Last Admin: 07/17/21 18:59 Dose: 0.25 mg Documented by: Formoterol Fumarate (Formoterol 20 Mcg/2 Ml Vial) 20 mcg NEB BIDR [facility] Stop: 08/12/21 18:59 Last Admin: 07/17/21 18:59 Dose: 20 mcg Documented by: Heparin Sodium (Porcine) (Heparin Sod 5,000 Unit/0.5 Ml Vial) 5,000 units SQ Q12 [facility] Stop: 08/11/21 22:22 Last Admin: 07/17/21 08:03 Dose: 5,000 units Documented by: Lidocaine (Lidocaine 5% 1 Patch) 1 patch TD QAM [facility] Stop: 08/13/21 10:24 Last Admin: 07/17/21 08:03 Dose: 1 patch Documented by: Loratadine (Loratadine 10 Mg Tab) 10 mg PO DAILY [facility] Stop: 08/12/21 08:59 Last Admin: 07/17/21 08:03 Dose: 10 mg Documented by: Metoprolol Succinate (Metoprolol Succ 25mg Ext Rel Tab) 25 mg PO DAILY [facility] Stop: 08/12/21 08:59 Last Admin: 07/17/21 08:03 Dose: 25 mg Documented by: Miscellaneous (Remove Lidoderm Patch) 1 ea N/A DAILY@2100 [facility] Stop: 08/13/21 20:59 Last Admin: 07/16/21 20:17 Dose: 1 ea Documented by: Morphine Sulfate (Morphine Sulfate 4 Mg/Ml 1 Ml Carp\\Vial) 4 mg IV Q2H PRN PRN Reason: Severe Pain Stop: 07/26/21 22:22 Last Admin: 07/17/21 17:46 Dose: 4 mg Documented by: Ondansetron HCl (Ondansetron Inj 2 Mg/Ml 2 Ml Vial) 4 mg IV Q4H PRN PRN Reason: Nausea And Vomiting Stop: 08/11/21 22:22 Polyethylene Glycol (Polyethylene (Miralax) 17 Gm Pack) 17 gm PO DAILY PRN PRN Reason: Constipation Stop: 08/11/21 22:22 Polyethylene Glycol (Polyethylene (Miralax) 17 Gm Pack) 17 gm PO DAILY [facility] Stop: 08/12/21 09:44 Last Admin: 07/17/21 08:03 Dose: Not Given Documented by: Pregabalin (Pregabalin 150 Mg Cap) 150 mg PO BID [facility] Stop: 08/11/21 20:59 Last Admin: 07/17/21 08:06 Dose: 150 mg Documented by:
[2021-07-17] MEDS: HYDROCODONE/ACETAMOPHEN 5/325MG TAB PO PRN (20:23)
[2021-07-17] MEDS: CELECOXIB 100 MG CAP PO SCH (20:24)
[2021-07-17] MEDS: ALPRAZolam 0.5 MG TABLET PO SCH (20:24)
[2021-07-18] MEDS: MoRPHine SULFATE 4 MG/ML 1 ML CARP\\VIAL IV PRN ×2 (00:39→19:51)
[2021-07-18] MEDS: HYDROCODONE/ACETAMOPHEN 5/325MG TAB PO PRN ×2 (05:55→11:51)
[2021-07-18] MEDS: FORMOTEROL 20 MCG/2 ML VIAL NEB SCH ×2 (07:35→19:12)
[2021-07-18] MEDS: BUDESONIDE 0.25 MG/2 ML VIAL (PULMICORT) INH SCH ×2 (07:35→19:12)
[2021-07-18] MEDS: AZITHROMYCIN 250 MG TAB PO SCH (08:45)
[2021-07-18] MEDS: DULoxetine HCL 60 MG CAP PO SCH (08:45)
[2021-07-18] MEDS: ASPIRIN 81 MG ECTAB PO SCH (08:45)
[2021-07-18] MEDS: ATORVASTATIN 10 MG TAB PO SCH (08:45)
[2021-07-18] MEDS: CELECOXIB 100 MG CAP PO SCH ×2 (08:45→20:41)
[2021-07-18] MEDS: ENOXAPARIN INJ 40 MG/0.4 ML SYR SQ SCH (08:45)
[2021-07-18] MEDS: POLYETHYLENE (MIRALAX) 17 GM PACK PO SCH (08:46)
[2021-07-18] MEDS: LORATADINE 10 MG TAB PO SCH (08:46)
[2021-07-18] MEDS: bisacodyL 5 MG TABEC PO SCH (08:46)
[2021-07-18] MEDS: PREGABALIN 150 MG CAP PO SCH ×2 (08:46→20:41)
[2021-07-18] MEDS: METOPROLOL SUCC 25MG EXT REL TAB PO SCH (08:46)
[2021-07-18] MEDS: LIDOCAINE 5% 1 PATCH TD SCH (08:46)
--- NOTE | 2021-07-18 15:16 | Hospitalist Progress Note ---
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 MRI cervical and lumbar spine: 1. Degenerative changes from C4 through C7 as described above resulting in moderate to severe central canal narrowing and bilateral neural foraminal narrowing. This is most pronounced at the C5-C6 level which demonstrates an associated 3 mm focal central disc protrusion. 2. Mild reversal the normal lordotic curvature likely due to long-standing degenerative change. 3. Mild levoscoliosis. 1. Motion artifact. 2. No fractures or subluxation within the lumbar spine. 3. Degenerative changes within the lower lumbar spine most pronounced at the L4- 5 level which demonstrates moderate central canal and moderate bilateral neural foraminal narrowing. ------ Generally bilatera hip replacement would be the treatment, however, she is high risk from a pulmonary status for an elective surgery. Ortho is planning to attempt bilateral steroid injections. Goal in patient's mind is to be in less pain, with questionable ability to move. ? Continues on [place] 2 tabs every few hours which is working for her. She isn't interested in other treatments although is open to trial of celebrex per pain management's suggestion. She declines PT and OT today. COPD: chronic, stable and not in exacerbation. 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 Cymbalta daily. Caution with using this and narcotics 2/2 polypharmacy in patient with respiratory issues at baseline. Bacterial conjunctivitis of L eye: new irritation and pus like drainage with mild erythema present in lower medial corner near tearduct. Starting polymyxin drops DVT Px Heparin Disposition will need Rehab or SNF DO Karlo Issachan [facility] Hospitalist Admission and Anticipated Discharge Date Admission Date: July 12, 2021 Subjective Admitted for leg weakness, ambulatory dysfunction, BL hip avascular necrosis lying supine in bed drowsy but able to awaken and report a pain level of 8 still feels the narcotics are helping and asking for more reports drainage and irritation from her left eye. refuses PT and wont get out of bed for fear of falling until she gets her steroid injections. Review of Systems Review of Systems: All systems were reviewed and negative except as indicated above. Physical Exam Physical Exam: CONSTITUTIONAL: obese vitals as above, generally lying supine in NAD EYES: irritated conjunctivae and lower lid irritation on the left side. Some crusting, honey colored present there. ENT: external ear and nose normal, MMM NECK: trachea midline RESPIRATORY: clear to auscultation bilaterally, no crackles, rales or wheezes, normal respiratory effort CARDIOVASCULAR: regular rate and rhythm, S1 and 2 heard without murmurs, gallops or rubs, no JVD, no peripheral edema CHEST: inspection of chest was normal GASTROINTESTINAL: soft, nontender, ND, no guarding MUSCULOSKELETAL: generalized weakness with apparent strength in her legs, but very limited ROM even with passive movement 2/2 severe pain, head is normocephalic and atraumatic SKIN: warm and dry NEUROLOGIC: CN 2-12 grossly intact, no sensory deficit, normal cognition, normal speech, no tremor PSYCHIATRIC: alert oriented to person, place and time. Results & Data Results & Data ([facility]) Vital Signs (Past 12 Hours) Vital Signs Temp Pulse Pulse Resp BP Pulse Ox 07/18/21 08:04 36.6 C 75 18 106/69 96 07/18/21 07:37 80 16 95 Medications Administered Current Inpatient Medications Acetaminophen (Acetaminophen 325 Mg Tab) 650 mg PO Q4H PRN PRN Reason: Mild Pain Stop: 08/11/21 22:22 Last Admin: 07/13/21 20:51 Dose: 650 mg Documented by: Hydrocodone Bitart/Acetaminophen (Hydrocodone/Acetamophen 5/325mg Tab) 1 - 2 tab PO Q6 PRN PRN Reason: MODERATE-SEVERE PAIN Stop: 07/27/21 09:29 Last Admin: 07/18/21 11:51 Dose: 2 tab Documented by: Albuterol (Albuterol Hfa 8 Gm Inhaler) 2 puffs INH QID PRN PRN Reason: shortness of breath or wheezing Stop: 08/11/21 18:32 Alprazolam (Alprazolam 0.5 Mg Tablet) 0.5 mg PO HS [facility] Stop: 08/11/21 20:59 Last Admin: 07/17/21 20:24 Dose: 0.5 mg Documented by: Aspirin (Aspirin 81 Mg Ectab) 81 mg PO DAILY [facility] Stop: 08/12/21 08:59 Last Admin: 07/18/21 08:45 Dose: 81 mg Documented by: Atorvastatin Calcium (Atorvastatin 10 Mg Tab) 10 mg PO QAM [facility] Stop: 08/12/21 08:59 Last Admin: 07/18/21 08:45 Dose: 10 mg Documented by: Azithromycin (Azithromycin 250 Mg Tab) 250 mg PO MoWeFr@0900 [facility] Stop: 08/12/21 08:59 Last Admin: 07/18/21 08:45 Dose: 250 mg Documented by: Bisacodyl (Bisacodyl 5 Mg Tabec) 5 mg PO DAILY [facility] Stop: 08/12/21 08:59 Last Admin: 07/18/21 08:46 Dose: Not Given Documented by: Bisacodyl (Bisacodyl 10 Mg Supp) 10 mg NC DAILY PRN PRN Reason: Constipation Stop: 08/11/21 22:22 Budesonide (Budesonide 0.25 Mg/2 Ml Vial (Pulmicort)) 0.25 mg INH BIDR [facility] Stop: 08/12/21 08:59 Last Admin: 07/18/21 07:35 Dose: 0.25 mg Documented by: Celecoxib (Celecoxib 100 Mg Cap) 100 mg PO BID [facility] Stop: 08/16/21 20:59 Last Admin: 07/18/21 08:45 Dose: 100 mg Documented by: Duloxetine HCl (Duloxetine Hcl 60 Mg Cap) 60 mg PO DAILY [facility] Stop: 08/17/21 08:59 Last Admin: 07/18/21 08:45 Dose: 60 mg Documented by: Enoxaparin Sodium (Enoxaparin Inj 40 Mg/0.4 Ml Syr) 40 mg SQ QAM [facility] Stop: 08/17/21 08:59 Last Admin: 07/18/21 08:45 Dose: 40 mg Documented by: Formoterol Fumarate (Formoterol 20 Mcg/2 Ml Vial) 20 mcg NEB BIDR [facility] Stop: 08/12/21 18:59 Last Admin: 07/18/21 07:35 Dose: 20 mcg Documented by: Lidocaine (L[facility]ocaine 5% 1 Patch) [facility] Stop: 08/13/21 10:24 Last Admin: 07/18/21 08:46 Dose: 1 patch Documented by: Loratadine (Loratadine 10 Mg Tab) 10 mg PO DAILY [facility] Stop: 08/12/21 08:59 Last Admin: 07/18/21 08:46 Dose: 10 mg Documented by: Metoprolol Succinate (Metoprolol Succ 25mg Ext Rel Tab) 25 mg PO DAILY [facility] Stop: 08/12/21 08:59 Last Admin: 07/18/21 08:46 Dose: 25 mg Documented by: Miscellaneous (Remove Lidoderm Patch) 1 ea N/A DAILY@2100 [facility] Stop: 08/13/21 20:59 Last Admin: 07/17/21 20:24 Dose: 1 ea Documented by: Morphine Sulfate (Morphine Sulfate 4 Mg/Ml 1 Ml Carp\Vial) 4 mg IV Q2H PRN PRN Reason: Severe Pain Stop: 07/26/21 22:22 Last Admin: 07/18/21 00:39 Dose: 4 mg Documented by: Ondansetron HCl (Ondansetron Inj 2 Mg/Ml 2 Ml Vial) 4 mg IV Q4H PRN PRN Reason: Nausea And Vomiting Stop: 08/11/21 22:22 Polyethylene Glycol (Polyethylene (Miralax) 17 Gm Pack) 17 gm PO DAILY PRN PRN Reason: Constipation Stop: 08/11/21 22:22 Polyethylene Glycol (Polyethylene (Miralax) 17 Gm Pack) 17 gm PO DAILY [facility] Stop: 08/12/21 09:44 Last Admin: 07/18/21 08:46 Dose: Not Given Documented by: Pregabalin (Pregabalin 150 Mg Cap) 150 mg PO BID [facility] Stop: 08/11/21 20:59 Last Admin: 07/18/21 08:46 Dose: 150 mg Documented by:
[2021-07-18] MEDS: ACETAMINOPHEN 325 MG TAB PO PRN (15:36)
[2021-07-18] MEDS: TRIMETHOPRIM/POLYMYXIN B OPL SCH ×2 (19:47→23:10)
[2021-07-18] MEDS: ALPRAZolam 0.5 MG TABLET PO SCH (20:40)
[2021-07-19] MEDS: TRIMETHOPRIM/POLYMYXIN B OPL SCH ×5 (02:44→20:02)
[2021-07-19] MEDS: HYDROCODONE/ACETAMOPHEN 5/325MG TAB PO PRN ×3 (05:57→17:41)
[2021-07-19] MEDS: BUDESONIDE 0.25 MG/2 ML VIAL (PULMICORT) INH SCH ×2 (07:06→19:08)
[2021-07-19] MEDS: FORMOTEROL 20 MCG/2 ML VIAL NEB SCH ×2 (07:13→19:08)
[2021-07-19] MEDS: LIDOCAINE 5% 1 PATCH TD SCH (08:53)
[2021-07-19] MEDS: CELECOXIB 100 MG CAP PO SCH ×2 (09:20→20:06)
[2021-07-19] MEDS: ATORVASTATIN 10 MG TAB PO SCH (09:20)
[2021-07-19] MEDS: ASPIRIN 81 MG ECTAB PO SCH (09:20)
[2021-07-19] MEDS: DULoxetine HCL 60 MG CAP PO SCH (09:21)
[2021-07-19] MEDS: ENOXAPARIN INJ 40 MG/0.4 ML SYR SQ SCH (09:22)
[2021-07-19] MEDS: LORATADINE 10 MG TAB PO SCH (09:22)
[2021-07-19] MEDS: POLYETHYLENE (MIRALAX) 17 GM PACK PO SCH ×2 (09:23→09:34)
[2021-07-19] MEDS: bisacodyL 5 MG TABEC PO SCH (09:25)
[2021-07-19] MEDS: PREGABALIN 150 MG CAP PO SCH ×2 (09:25→20:06)
[2021-07-19] MEDS: METOPROLOL SUCC 25MG EXT REL TAB PO SCH (09:30)
[2021-07-19] MEDS ORDERED: SODIUM CHLORIDE 0.9% 1000ML 500 ML IV ONE (10:11)
--- NOTE | 2021-07-19 11:54 | Hospitalist Progress Note ---
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 MRI cervical and lumbar spine: 1. Degenerative changes from C4 through C7 as described above resulting in moderate to severe central canal narrowing and bilateral neural foraminal narrowing. This is most pronounced at the C5-C6 level which demonstrates an associated 3 mm focal central disc protrusion. 2. Mild reversal the normal lordotic curvature likely due to long-standing degenerative change. 3. Mild levoscoliosis. 1. Motion artifact. 2. No fractures or subluxation within the lumbar spine. 3. Degenerative changes within the lower lumbar spine most pronounced at the L4- 5 level which demonstrates moderate central canal and moderate bilateral neural foraminal narrowing. ------ Generally bilatera hip replacement would be the treatment, however, she is high risk from a pulmonary status for an elective surgery. Ortho is planning to attempt bilateral steroid injections. Goal in patient's mind is to be in less pain, with questionable ability to move. ? Continues on [place] 2 tabs every few hours which is working for her. She isn't interested in other treatments although is open to trial of celebrex per pain management's suggestion. She declines PT and OT until able to receive hip injections. COPD: chronic, stable and not in exacerbation. 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 Cymbalta daily. Caution with using this and narcotics 2/2 polypharmacy in patient with respiratory issues at baseline. Bacterial conjunctivitis of L eye: new irritation and pus like drainage with mil d erythema present in lower medial corner near tearduct. Starting polymyxin drops DVT Px Heparin Disposition will need Rehab or SNF Neda Uriarte DO [facility] Hospitalist Admission and Anticipated Discharge Date Admission Date: July 12, 2021 Subjective Admitted for leg weakness, ambulatory dysfunction, BL hip avascular necrosis lying supine in bed drowsy but able to awaken and report a pain level of 8 still feels the narcotics are helping continues to be angry at her doctors who "didn't listen to me for 4 years" she appears very angry again I tried to have Pain and/or Radiology do the injection tomorrow but they were unable to because of staffing. No one can do the injections until next week and I let her know this. Reports some back spasming from "the way the staff move me around" Review of Systems Review of Systems: All systems were reviewed and negative except as indicated above. Physical Exam Physical Exam: CONSTITUTIONAL: obese vitals as above, generally lying supine in NAD EYES: irritated conjunctivae and lower lid irritation on the left side. Some crusting, honey colored present there. ENT: external ear and nose normal, MMM NECK: trachea midline RESPIRATORY: clear to auscultation bilaterally, no crackles, rales or wheezes, normal respiratory effort CARDIOVASCULAR: regular rate and rhythm, S1 and 2 heard without murmurs, gallops or rubs, no JVD, no peripheral edema CHEST: inspection of chest was normal GASTROINTESTINAL: soft, nontender, ND, no guarding MUSCULOSKELETAL: generalized weakness with apparent strength in her legs, but very limited ROM even with passive movement 2/2 severe pain, head is normocephalic and atraumatic SKIN: warm and dry NEUROLOGIC: CN 2-12 grossly intact, no sensory deficit, normal cognition, normal speech, no tremor PSYCHIATRIC: alert oriented to person, place and time. Results & Data Results & Data ([facility]) Vital Signs (Past 12 Hours) Vital Signs Temp Pulse Resp BP BP Pulse Ox 07/19/21 11:31 81 103/53 L 94 07/19/21 09:28 79 86/49 L 97 07/19/21 07:19 36.4 C L 70 20 92/59 L 100 07/19/21 07:10 71 18 95 Medications Administered Current Inpatient Medications Acetaminophen (Acetaminophen 325 Mg Tab) 650 mg PO Q4H PRN PRN Reason: Mild Pain Stop: 08/11/21 22:22 Last Admin: 07/18/21 15:36 Dose: 650 mg Documented by: Hydrocodone Bitart/Acetaminophen (Hydrocodone/Acetamophen 5/325mg Tab) 1 - 2 tab PO Q6H PRN PRN Reason: MODERATE-SEVERE PAIN Stop: 07/29/21 11:43 Last Admin: 07/19/21 11:35 Dose: 2 tab Documented by: Albuterol (Albuterol Hfa 8 Gm Inhaler) 2 puffs INH QID PRN PRN Reason: shortness of breath or wheezing Stop: 08/11/21 18:32 Alprazolam (Alprazolam 0.5 Mg Tablet) 0.5 mg PO HS [facility] Stop: 08/11/21 20:59 Last Admin: 07/18/21 20:40 Dose: 0.5 mg Documented by: Aspirin (Aspirin 81 Mg Ectab) 81 mg PO DAILY [facility] Stop: 08/12/21 08:59 Last Admin: 07/19/21 09:20 Dose: 81 mg Documented by: Atorvastatin Calcium (Atorvastatin 10 Mg Tab) 10 mg PO QAM [facility] Stop: 08/12/21 08:59 Last Admin: 07/19/21 09:20 Dose: 10 mg Documented by: Azithromycin (Azithromycin 250 Mg Tab) 250 mg PO MoWeFr@0900 [facility] Stop: 08/12/21 08:59 Last Admin: 07/18/21 08:45 Dose: 250 mg Documented by: Bisacodyl (Bisacodyl 5 Mg Tabec) 5 mg PO DAILY [facility] Stop: 08/12/21 08:59 Last Admin: 07/19/21 09:25 Dose: 5 mg Documented by: Bisacodyl (Bisacodyl 10 Mg Supp) 10 mg [place] DAILY PRN PRN Reason: Constipation Stop: 08/11/21 22:22 Budesonide (Budesonide 0.25 Mg/2 Ml Vial (Pulmicort)) 0.25 mg INH BIDR [facility] Stop: 08/12/21 08:59 Last Admin: 07/19/21 07:06 Dose: 0.25 mg Documented by: Celecoxib (Celecoxib 100 Mg Cap) 100 mg PO BID [facility] Stop: 08/16/21 20:59 Last Admin: 07/19/21 09:20 Dose: 100 mg Documented by: Duloxetine HCl (Duloxetine Hcl 60 Mg Cap) 60 mg PO DAILY [facility] Stop: 08/17/21 08:59 Last Admin: 07/19/21 09:21 Dose: 60 mg Documented by: Enoxaparin Sodium (Enoxaparin Inj 40 Mg/0.4 Ml Syr) 40 mg SQ QAM [facility] Stop: 08/17/21 08:59 Last Admin: 07/19/21 09:22 Dose: 40 mg Documented by: Formoterol Fumarate (Formoterol 20 Mcg/2 Ml Vial) 20 mcg NEB BIDR [facility] Stop: 08/12/21 18:59 Last Admin: 07/19/21 07:13 Dose: 20 mcg Documented by: Lidocaine (Lidocaine 5% 1 Patch) 1 patch TD QAM [facility] Stop: 08/13/21 10:24 Last Admin: 07/19/21 08:53 Dose: 1 patch Documented by: Loratadine (Loratadine 10 Mg Tab) 10 mg PO DAILY [facility] Stop: 08/12/21 08:59 Last Admin: 07/19/21 09:22 Dose: 10 mg Documented by: Metoprolol Succinate (Metoprolol Succ 25mg Ext Rel Tab) 25 mg PO DAILY [facility] Stop: 08/12/21 08:59 Last Admin: 07/19/21 09:30 Dose: Not Given Documented by: Miscellaneous (Remove Lidoderm Patch) 1 ea N/A DAILY@2100 [facility] Stop: 08/13/21 20:59 Last Admin: 07/18/21 20:41 Dose: 1 ea Documented by: Morphine Sulfate (Morphine Sulfate 4 Mg/Ml 1 Ml Carp\\Vial) 4 mg IV Q2H PRN PRN Reason: Severe Pain Stop: 07/26/21 22:22 Last Admin: 07/18/21 19:51 Dose: 4 mg Documented by: Ondansetron HCl (Ondansetron Inj 2 Mg/Ml 2 Ml Vial) 4 mg IV Q4H PRN PRN Reason: Nausea And Vomiting Stop: 08/11/21 22:22 Polyethylene Glycol (Polyethylene (Miralax) 17 Gm Pack) 17 gm PO DAILY PRN PRN Reason: Constipation Stop: 08/11/21 22:22 Polyethylene Glycol (Polyethylene (Miralax) 17 Gm Pack) 17 gm PO DAILY [facility] Stop: 08/12/21 09:44 Last Admin: 07/19/21 09:34 Dose: Not Given Documented by: Polymyxin/Trimethoprim Sulfate (Trimethoprim/Polymyxin B) 1 drops OPL Q4H [facility] Stop: 07/25/21 18:59 Last Admin: 07/19/21 10:39 Dose: 1 drops Documented by: Pregabalin (Pregabalin 150 Mg Cap) 150 mg PO BID [facility] Stop: 08/11/21 20:59 Last Admin: 07/19/21 09:25 Dose: 150 mg Documented by:
[2021-07-19] MEDS: ALPRAZolam 0.5 MG TABLET PO SCH (20:06)
[2021-07-20] MEDS: TRIMETHOPRIM/POLYMYXIN B OPL SCH ×7 (00:37→22:28)
[2021-07-20] MEDS: HYDROCODONE/ACETAMOPHEN 5/325MG TAB PO PRN ×2 (00:38→18:15)
[2021-07-20] MEDS: MoRPHine SULFATE 4 MG/ML 1 ML CARP\\VIAL IV PRN (03:55)
[2021-07-20] MEDS: ACETAMINOPHEN 325 MG TAB PO PRN ×2 (03:56→13:51)
[2021-07-20] MEDS: BUDESONIDE 0.25 MG/2 ML VIAL (PULMICORT) INH SCH ×2 (07:12→19:51)
[2021-07-20] MEDS: FORMOTEROL 20 MCG/2 ML VIAL NEB SCH ×2 (07:13→19:51)
[2021-07-20] MEDS: ATORVASTATIN 10 MG TAB PO SCH (08:31)
[2021-07-20] MEDS: CELECOXIB 100 MG CAP PO SCH ×2 (08:31→21:25)
[2021-07-20] MEDS: DULoxetine HCL 60 MG CAP PO SCH (08:31)
[2021-07-20] MEDS: ASPIRIN 81 MG ECTAB PO SCH (08:31)
[2021-07-20] MEDS: AZITHROMYCIN 250 MG TAB PO SCH (08:32)
[2021-07-20] MEDS: LIDOCAINE 5% 1 PATCH TD SCH (08:32)
[2021-07-20] MEDS: ENOXAPARIN INJ 40 MG/0.4 ML SYR SQ SCH (08:32)
[2021-07-20] MEDS: METOPROLOL SUCC 25MG EXT REL TAB PO SCH (08:33)
[2021-07-20] MEDS: POLYETHYLENE (MIRALAX) 17 GM PACK PO SCH ×2 (08:33→09:15)
[2021-07-20] MEDS: LORATADINE 10 MG TAB PO SCH (08:33)
[2021-07-20] MEDS: bisacodyL 5 MG TABEC PO SCH (08:36)
[2021-07-20] MEDS: PREGABALIN 150 MG CAP PO SCH ×2 (08:36→21:25)
[2021-07-20] MEDS ORDERED: SODIUM CHLORIDE 0.9% 1000ML 500 ML IV ONE (10:36)
--- NOTE | 2021-07-20 11:44 | Hospitalist Progress Note ---
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 MRI cervical and lumbar spine: 1. Degenerative changes from C4 through C7 as described above resulting in moderate to severe central canal narrowing and bilateral neural foraminal narrowing. This is most pronounced at the C5-C6 level which demonstrates an associated 3 mm focal central disc protrusion. 2. Mild reversal the normal lordotic curvature likely due to long-standing degenerative change. 3. Mild levoscoliosis. 1. Motion artifact. 2. No fractures or subluxation within the lumbar spine. 3. Degenerative changes within the lower lumbar spine most pronounced at the L4- 5 level which demonstrates moderate central canal and moderate bilateral neural foraminal narrowing. ------ Generally bilateral hip replacement would be the treatment, however, she is high risk from a pulmonary status for an elective surgery. Ortho is planning to attempt bilateral steroid injections. Goal in patient's mind is to be in less pain, with questionable ability to move. ? Continues on [place] 2 tabs every few hours which is working for her. She isn't interested in other treatments although is open to trial of celebrex per pain management's suggestion. She declines PT and OT until able to receive hip injections. Hypotension: Likely 2/2 narcotics, Lyrica may also be contributing. COPD: chronic, stable and not in exacerbation. 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 Cymbalta daily. Caution with using this and narcotics 2/2 polypharmacy in patient with respiratory issues at baseline. Bacterial conjunctivitis of L eye: new irritation and pus like drainage with mild erythema present in lower medial corner near tearduct. Starting polymyxin drops DVT Px Heparin Disposition will need Rehab or SNF DO [facility] Hospitalist Admission and Anticipated Discharge Date Admission Date: July 12, 2021 Subjective Admitted for leg weakness, ambulatory dysfunction, BL hip avascular necrosis lying supine in bed persistent pain that is manageable continues to have borderline hypotension awaiting steroid injections Review of Systems Review of Systems: All systems were reviewed and negative except as indicated above. Physical Exam Physical Exam: CONSTITUTIONAL: obese vitals as above, generally lying supine in NAD EYES: irritated conjunctivae and lower lid irritation on the left side. Some crusting, honey colored present there. ENT: external ear and nose normal, MMM NECK: trachea midline RESPIRATORY: clear to auscultation bilaterally, no crackles, rales or wheezes, normal respiratory effort CARDIOVASCULAR: regular rate and rhythm, S1 and 2 heard without murmurs, gallops or rubs, no JVD, no peripheral edema CHEST: inspection of chest was normal GASTROINTESTINAL: soft, nontender, ND, no guarding MUSCULOSKELETAL: generalized weakness, she was having a purwick catheter placed so we did not fully examine her lower strength. SKIN: warm and dry NEUROLOGIC: CN 2-12 grossly intact, no sensory deficit, normal cognition, normal speech, no tremor PSYCHIATRIC: alert oriented to person, place and time. Results & Data Results & Data ([facility]) Vital Signs (Past 12 Hours) Vital Signs Temp Pulse Resp BP BP Pulse Ox 07/20/21 09:58 83 83/45 L 95 07/20/21 09:16 91 H 89/45 L 07/20/21 07:39 37 C 81 18 95/61 L 97 07/20/21 07:15 86 18 98 07/20/21 00:32 107/69 Medications Administered Current Inpatient Medications Acetaminophen (Acetaminophen 325 Mg Tab) 650 mg PO Q4H PRN PRN Reason: Mild Pain Stop: 08/11/21 22:22 Last Admin: 07/20/21 03:56 Dose: 650 mg Documented by: Hydrocodone Bitart/Acetaminophen (Hydrocodone/Acetamophen 5/325mg Tab) 1 - 2 tab PO Q6H PRN PRN Reason: MODERATE-SEVERE PAIN Stop: 07/29/21 11:43 Last Admin: 07/20/21 00:38 Dose: 2 tab Documented by: Albuterol (Albuterol Hfa 8 Gm Inhaler) 2 puffs INH QID PRN PRN Reason: shortness of breath or wheezing Stop: 08/11/21 18:32 Alprazolam (Alprazolam 0.5 Mg Tablet) 0.5 mg PO HS [facility] Stop: 08/11/21 20:59 Last Admin: 07/19/21 20:06 Dose: 0.5 mg Documented by: Aspirin (Aspirin 81 Mg Ectab) 81 mg PO DAILY [facility] Stop: 08/12/21 08:59 Last Admin: 07/20/21 08:31 Dose: 81 mg Documented by: Atorvastatin Calcium (Atorvastatin 10 Mg Tab) 10 mg PO QAM [facility] Stop: 08/12/21 08:59 Last Admin: 07/20/21 08:31 Dose: 10 mg Documented by: Azithromycin (Azithromycin 250 Mg Tab) 250 mg PO MoWeFr@0900 [facility] Stop: 08/12/21 08:59 Last Admin: 07/20/21 08:32 Dose: 250 mg Documented by: Bisacodyl (Bisacodyl 5 Mg Tabec) 5 mg PO DAILY [facility] Stop: 08/12/21 08:59 Last Admin: 07/20/21 08:36 Dose: 5 mg Documented by: Bisacodyl (Bisacodyl 10 Mg Supp) 10 mg [place] DAILY PRN PRN Reason: Constipation Stop: 08/11/21 22:22 Budesonide (Budesonide 0.25 Mg/2 Ml Vial (Pulmicort)) 0.25 mg INH BIDR [facility] Stop: 08/12/21 08:59 Last Admin: 07/20/21 07:12 Dose: 0.25 mg Documented by: Celecoxib (Celecoxib 100 Mg Cap) 100 mg PO BID [facility] Stop: 08/16/21 20:59 Last Admin: 07/20/21 08:31 Dose: 100 mg Documented by: Duloxetine HCl (Duloxetine Hcl 60 Mg Cap) 60 mg PO DAILY [facility] Stop: 08/17/21 08:59 Last Admin: 07/20/21 08:31 Dose: 60 mg Documented by: Enoxaparin Sodium (Enoxaparin Inj 40 Mg/0.4 Ml Syr) 40 mg SQ QAM [facility] Stop: 08/17/21 08:59 Last Admin: 07/20/21 08:32 Dose: 40 mg Documented by: Formoterol Fumarate (Formoterol 20 Mcg/2 Ml Vial) 20 mcg NEB BIDR [facility] Stop: 08/12/21 18:59 Last Admin: 07/20/21 07:13 Dose: 20 mcg Documented by: Lidocaine (Lidocaine 5% 1 Patch) 1 patch TD QAM [facility] Stop: 08/13/21 10:24 Last Admin: 07/20/21 08:32 Dose: 1 patch Documented by: Loratadine (Loratadine 10 Mg Tab) 10 mg PO DAILY [facility] Stop: 08/12/21 08:59 Last Admin: 07/20/21 08:33 Dose: 10 mg Documented by: Metoprolol Succinate (Metoprolol Succ 25mg Ext Rel Tab) 25 mg PO DAILY [facility] Stop: 08/12/21 08:59 Last Admin: 07/20/21 08:33 Dose: Not Given Documented by: Miscellaneous (Remove Lidoderm Patch) 1 ea N/A DAILY@2100 [facility] Stop: 08/13/21 20:59 Last Admin: 07/19/21 20:02 Dose: 1 ea Documented by: Morphine Sulfate (Morphine Sulfate 4 Mg/Ml 1 Ml Carp\Vial) 4 mg IV Q2H PRN PRN Reason: Severe Pain Stop: 07/26/21 22:22 Last Admin: 07/20/21 03:55 Dose: 4 mg Documented by: Ondansetron HCl (Ondansetron Inj 2 Mg/Ml 2 Ml Vial) 4 mg IV Q4H PRN PRN Reason: Nausea And Vomiting Stop: 08/11/21 22:22 Polyethylene Glycol (Polyethylene (Miralax) 17 Gm Pack) 17 gm PO DAILY PRN PRN Reason: Constipation Stop: 08/11/21 22:22 Polyethylene Glycol (Polyethylene (Miralax) 17 Gm Pack) 17 gm PO DAILY [facility] Stop: 08/12/21 09:44 Last Admin: 07/20/21 09:15 Dose: Not Given Documented by: Polymyxin/Trimethoprim Sulfate (Trimethoprim/Polymyxin B) 1 drops OPL Q4H [facility] Stop: 07/25/21 18:59 Last Admin: 07/20/21 10:51 Dose: 1 drops Documented by: Pregabalin (Pregabalin 150 Mg Cap) 150 mg PO BID [facility] Stop: 08/11/21 20:59 Last Admin: 07/20/21 08:36 Dose: 150 mg Documented by:
[2021-07-20] MEDS: ALPRAZolam 0.5 MG TABLET PO SCH (21:25)
[2021-07-21] MEDS: HYDROCODONE/ACETAMOPHEN 5/325MG TAB PO PRN ×2 (00:16→06:04)
[2021-07-21] MEDS: TRIMETHOPRIM/POLYMYXIN B OPL SCH ×6 (03:11→23:14)
[2021-07-21 06:56] LABS: Hematocrit (blood only) 28.8 % (37-47); Mean Corpuscular Hemoglobin 30.6 pg (25-34); Mean Corpuscular Hgb Conc 31.3 g/dL (32-36); Mean Platelet Volume 9.7 fL (7.4-10.4); Platelet Count 382 K/uL (130-400); RDW Coefficient of Variation 12.6 % (11.5-14.5); RDW Standard Deviation 45.3 fL (36.4-46.3); Red Blood Count 2.94 M/uL (4.2-5.4); White Blood Count 4.74 K/uL (4.8-10.8)
[2021-07-21 07:13] LABS: BUN Creatinine Ratio 19.3 (10-20); Creatinine Clr Calc Pharmacy 105.3 ml/min; Est GFR (African American) 116.8 ml/min; Est GFR (Non-African American) 100.8 ml/min
[2021-07-21] MEDS: FORMOTEROL 20 MCG/2 ML VIAL NEB SCH ×2 (07:29→20:15)
[2021-07-21] MEDS: BUDESONIDE 0.25 MG/2 ML VIAL (PULMICORT) INH SCH ×2 (07:31→20:15)
[2021-07-21] MEDS: CELECOXIB 100 MG CAP PO SCH ×2 (09:17→21:13)
[2021-07-21] MEDS: ASPIRIN 81 MG ECTAB PO SCH (09:17)
[2021-07-21] MEDS: LORATADINE 10 MG TAB PO SCH (09:17)
[2021-07-21] MEDS: ENOXAPARIN INJ 40 MG/0.4 ML SYR SQ SCH (09:17)
[2021-07-21] MEDS: PREGABALIN 150 MG CAP PO SCH ×2 (09:17→21:13)
[2021-07-21] MEDS: ATORVASTATIN 10 MG TAB PO SCH (09:18)
[2021-07-21] MEDS: DULoxetine HCL 60 MG CAP PO SCH (09:18)
[2021-07-21] MEDS: LIDOCAINE 5% 1 PATCH TD SCH (09:18)
[2021-07-21] MEDS: POLYETHYLENE (MIRALAX) 17 GM PACK PO SCH (09:19)
[2021-07-21] MEDS: METOPROLOL SUCC 25MG EXT REL TAB PO SCH (09:19)
[2021-07-21] MEDS: bisacodyL 5 MG TABEC PO SCH (09:19)
[2021-07-21] MEDS: ACETAMINOPHEN 325 MG TAB PO PRN (10:44)
[2021-07-21] MEDS: oxyCODONE HCL IR 5 MG TAB (IMMEDIATE RELEASE) PO PRN ×2 (11:58→21:23)
[2021-07-21] MEDS: ACETAMINOPHEN 325 MG TAB PO SCH ×3 (12:47→23:13)
--- NOTE | 2021-07-21 18:42 | Hospitalist Progress Note ---
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 - Generally bilateral hip replacement would be the treatment, however, she is high risk from a pulmonary status for an elective surgery. Ortho is planning to attempt bilateral steroid injections. Goal in patient's mind is to be in less pain, with questionable ability to move. - On norco but was having significant pain- PDMP reviewed, she was on oxy before. Continue multimodal pain management- Will change to oxy q4hr prn, make tylenol scheduled, continue lidoderm patch, cymbalta, celebrex, lyrica, medrol dosepak. Continue bowel regimen - She declines PT and OT until able to receive hip injections. - Tentative plan for steroid injection on Friday MRI cervical spine: 1. Degenerative changes from C4 through C7 as described above resulting in moderate to severe central canal narrowing and bilateral neural foraminal narrowing. This is most pronounced at the C5-C6 level which demonstrates an associated 3 mm focal central disc protrusion. 2. Mild reversal the normal lordotic curvature likely due to long-standing degenerative change. 3. Mild levoscoliosis. MRI lumbar spine 1. Motion artifact. 2. No fractures or subluxation within the lumbar spine. 3. Degenerative changes within the lower lumbar spine most pronounced at the L4- 5 level which demonstrates moderate central canal and moderate bilateral neural foraminal narrowing. Hypotension: BP low normal but stable, likely 2/2 narcotics. Will monitor. On toprol COPD with chronic hypoxic respiratory failure: chronic, stable and not in exacerbation. On chronic oxygen with baseline 2L [place] - continue usual Pulmicort, formoterol nebulization, azithromycin 3 times a week Anxiety: uses Xanax PRN qHS for insomnia/anxiety. Cymbalta daily. Caution with using this and narcotics 2/2 polypharmacy in patient with respiratory issues at baseline. Bacterial conjunctivitis of L eye: On polymyxin drops DVT prophylaxis: sc lovenox Disposition: will need Rehab or SNF. Will need steroid injection- likely on Friday Admission and Anticipated Discharge Date Admission Date: July 12, 2021 Subjective She is in bad pain today but otherwise no change in the characteristics of pain. Asking for more pain medications. She was upset that she was asked to use walker even for transporting to bedside commode from her bed. No fever, chills, chest pain, shortness of breath. States having bowel movements. Physical Exam Physical Exam: General: Lying in bed on her side, uncomfortable due to pain and trying to find a comfortable position, on NC HEENT: EOMI, SURI, MMM Chest: Clear breath sounds bilaterally, no wheezes or crackles CVS: Regular rate and rhythm, normal heart sounds, no murmur Abdomen: Soft, non tender, not distended, normal bowel sounds Neuro: Awake, alert, oriented, conversing well, non focal Extremities: No cyanosis, clubbing or edema Results & Data Results & Data ([facility]) Vital Signs (Past 12 Hours) Vital Signs Temp Pulse Resp BP Pulse Ox 07/21/21 17:05 36.4 C L 97 H 16 108/69 95 07/21/21 09:08 36.5 C 102 H 16 99/60 L 93 07/21/21 07:31 86 20 96 07/21/21 07:07 36.8 C 73 16 96 Laboratory Results Short CBC 07/21/21 Range/Units 06:37 WBC 4.74 L (4.8-10.8) K/uL Hgb 9.0 L (12.0-16.0) g/dL Hct 28.8 L (37-47) % Plt Count 382 (130-400) K/uL BMP 07/21/21 06:37 Sodium 139 Potassium 4.0 Chloride 101 Carbon Dioxide 36 H BUN 11 Creatinine 0.57 L Glucose 86 Calcium 9.0 Medications Administered Current Inpatient Medications Acetaminophen (Acetaminophen 325 Mg Tab) 650 mg PO Q6 [facility] Stop: 08/20/21 11:59 Last Admin: 07/21/21 18:16 Dose: 650 mg Documented by: Albuterol (Albuterol Hfa 8 Gm Inhaler) 2 puffs INH QID PRN PRN Reason: shortness of breath or wheezing Stop: 08/11/21 18:32 Alprazolam (Alprazolam 0.5 Mg Tablet) 0.5 mg PO HS [facility] Stop: 08/11/21 20:59 Last Admin: 07/20/21 21:25 Dose: 0.5 mg Documented by: Aspirin (Aspirin 81 Mg Ectab) 81 mg PO DAILY [facility] Stop: 08/12/21 08:59 Last Admin: 07/21/21 09:17 Dose: 81 mg Documented by: Atorvastatin Calcium (Atorvastatin 10 Mg Tab) 10 mg PO QAM [facility] Stop: 08/12/21 08:59 Last Admin: 07/21/21 09:18 Dose: 10 mg Documented by: Azithromycin (Azithromycin 250 Mg Tab) 250 mg PO MoWeFr@0900 [facility] Stop: 08/12/21 08:59 Last Admin: 07/20/21 08:32 Dose: 250 mg Documented by: Bisacodyl (Bisacodyl 5 Mg Tabec) 5 mg PO DAILY [facility] Stop: 08/12/21 08:59 Last Admin: 07/21/21 09:19 Dose: Not Given Documented by: Bisacodyl (Bisacodyl 10 Mg Supp) 10 mg [place] DAILY PRN PRN Reason: Constipation Stop: 08/11/21 22:22 Budesonide (Budesonide 0.25 Mg/2 Ml Vial (Pulmicort)) 0.25 mg INH BIDR [facility] Stop: 08/12/21 08:59 Last Admin: 07/21/21 07:31 Dose: 0.25 mg Documented by: Celecoxib (Celecoxib 100 Mg Cap) 100 mg PO BID [facility] Stop: 08/16/21 20:59 Last Admin: 07/21/21 09:17 Dose: 100 mg Documented by: Duloxetine HCl (Duloxetine Hcl 60 Mg Cap) 60 mg PO DAILY [facility] Stop: 08/17/21 08:59 Last Admin: 07/21/21 09:18 Dose: 60 mg Documented by: Enoxaparin Sodium (Enoxaparin Inj 40 Mg/0.4 Ml Syr) 40 mg SQ QAM [facility] Stop: 08/17/21 08:59 Last Admin: 07/21/21 09:17 Dose: 40 mg Documented by: Formoterol Fumarate (Formoterol 20 Mcg/2 Ml Vial) 20 mcg NEB BIDR [facility] Stop: 08/12/21 18:59 Last Admin: 07/21/21 07:29 Dose: 20 mcg Documented by: Lidocaine (L[facility]ocaine 5% 1 Patch) [facility] Stop: 08/13/21 10:24 Last Admin: 07/21/21 09:18 Dose: 1 patch Documented by: Loratadine (Loratadine 10 Mg Tab) 10 mg PO DAILY [facility] Stop: 08/12/21 08:59 Last Admin: 07/21/21 09:17 Dose: 10 mg Documented by: Metoprolol Succinate (Metoprolol Succ 25mg Ext Rel Tab) 25 mg PO DAILY [facility] Stop: 08/12/21 08:59 Last Admin: 07/21/21 09:19 Dose: Not Given Documented by: Miscellaneous (Remove Lidoderm Patch) 1 ea N/A DAILY@2100 [facility] Stop: 08/13/21 20:59 Last Admin: 07/20/21 21:26 Dose: 1 ea Documented by: Morphine Sulfate (Morphine Sulfate 4 Mg/Ml 1 Ml Carp\Vial) 4 mg IV Q2H PRN PRN Reason: Severe Pain Stop: 07/26/21 22:22 Last Admin: 07/20/21 03:55 Dose: 4 mg Documented by: Ondansetron HCl (Ondansetron Inj 2 Mg/Ml 2 Ml Vial) 4 mg IV Q4H PRN PRN Reason: Nausea And Vomiting Stop: 08/11/21 22:22 Oxycodone HCl (Oxycodone Hcl Ir 5 Mg Tab (Immediate Release)) 5 - 10 mg PO Q4 PRN PRN Reason: Pain Stop: 08/04/21 11:32 Last Admin: 07/21/21 11:58 Dose: 10 mg Documented by: Polyethylene Glycol (Polyethylene (Miralax) 17 Gm Pack) 17 gm PO DAILY PRN PRN Reason: Constipation Stop: 08/11/21 22:22 Polyethylene Glycol (Polyethylene (Miralax) 17 Gm Pack) 17 gm PO DAILY [facility] Stop: 08/12/21 09:44 Last Admin: 07/21/21 09:19 Dose: Not Given Documented by: Polymyxin/Trimethoprim Sulfate (Trimethoprim/Polymyxin B) 1 drops OPL Q4H [facility] Stop: 07/25/21 18:59 Last Admin: 07/21/21 18:16 Dose: 1 drops Documented by: Pregabalin (Pregabalin 150 Mg Cap) 150 mg PO BID [facility] Stop: 08/11/21 20:59 Last Admin: 07/21/21 09:17 Dose: 150 mg Documented by:
[2021-07-21] MEDS: ALPRAZolam 0.5 MG TABLET PO SCH (21:13)
[2021-07-22] MEDS: TRIMETHOPRIM/POLYMYXIN B OPL SCH ×5 (03:05→19:52)
[2021-07-22] MEDS: oxyCODONE HCL IR 5 MG TAB (IMMEDIATE RELEASE) PO PRN ×3 (03:05→17:52)
[2021-07-22] MEDS: ALBUTEROL HFA 8 GM INHALER INH PRN (03:33)
[2021-07-22] MEDS: ACETAMINOPHEN 325 MG TAB PO SCH ×3 (06:06→17:53)
[2021-07-22] MEDS: MoRPHine SULFATE 4 MG/ML 1 ML CARP\\VIAL IV PRN (06:14)
[2021-07-22] MEDS: BUDESONIDE 0.25 MG/2 ML VIAL (PULMICORT) INH SCH ×2 (07:12→19:16)
[2021-07-22] MEDS: FORMOTEROL 20 MCG/2 ML VIAL NEB SCH ×2 (07:13→19:16)
[2021-07-22] MEDS: LORATADINE 10 MG TAB PO SCH (08:49)
[2021-07-22] MEDS: CELECOXIB 100 MG CAP PO SCH ×2 (08:49→20:54)
[2021-07-22] MEDS: DULoxetine HCL 60 MG CAP PO SCH (08:49)
[2021-07-22] MEDS: bisacodyL 5 MG TABEC PO SCH (08:49)
[2021-07-22] MEDS: PREGABALIN 150 MG CAP PO SCH ×2 (08:49→20:54)
[2021-07-22] MEDS: ATORVASTATIN 10 MG TAB PO SCH (08:49)
[2021-07-22] MEDS: ASPIRIN 81 MG ECTAB PO SCH (08:50)
[2021-07-22] MEDS: ENOXAPARIN INJ 40 MG/0.4 ML SYR SQ SCH (08:50)
[2021-07-22] MEDS: LIDOCAINE 5% 1 PATCH TD SCH (08:50)
[2021-07-22] MEDS: METOPROLOL SUCC 25MG EXT REL TAB PO SCH (08:51)
[2021-07-22] MEDS: POLYETHYLENE (MIRALAX) 17 GM PACK PO SCH (08:59)
--- NOTE | 2021-07-22 14:32 | Hospitalist Progress Note ---
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 - Generally bilateral hip replacement would be the treatment, however, she is high risk from a pulmonary status for an elective surgery. Ortho is planning to attempt bilateral steroid injections. Goal in patient's mind is to be in less pain, with questionable ability to move. - PDMP reviewed- she was on oxy before. She was having significant pain despite norco, hence medications changed 07/21. Continue multimodal pain management- continue oxy q4hr prn, tylenol q6hr, continue lidoderm patch, cymbalta, celebrex, lyrica, medrol dosepak. Continue bowel regimen - She declines PT and OT until able to receive hip injections. - Tentative plan for steroid injection on Friday MRI cervical spine: 1. Degenerative changes from C4 through C7 as described above resulting in moderate to severe central canal narrowing and bilateral neural foraminal narrowing. This is most pronounced at the C5-C6 level which demonstrates an associated 3 mm focal central disc protrusion. 2. Mild reversal the normal lordotic curvature likely due to long-standing degenerative change. 3. Mild levoscoliosis. MRI lumbar spine 1. Motion artifact. 2. No fractures or subluxation within the lumbar spine. 3. Degenerative changes within the lower lumbar spine most pronounced at the L4- 5 level which demonstrates moderate central canal and moderate bilateral neural foraminal narrowing. Hypotension: BP low normal but stable, likely 2/2 narcotics. Will monitor. On toprol COPD with chronic hypoxic respiratory failure: chronic, stable and not in exacerbation. On chronic oxygen with baseline 2L [place] - continue usual Pulmicort, formoterol nebulization, azithromycin 3 times a week Anxiety: uses Xanax PRN qHS for insomnia/anxiety. Cymbalta daily. Caution with using this and narcotics 2/2 polypharmacy in patient with respiratory issues at baseline. Bacterial conjunctivitis of L eye: On polymyxin drops DVT prophylaxis: sc lovenox Disposition: will need Rehab or SNF. Will need steroid injection- likely on Eulogio Admission and Anticipated Discharge Date Admission Date: July 12, 2021 Subjective No new issues. States she continues to struggle with the pain, had just received some morphine prior to my encounter and was feeling okay. States no bowel movement for past 6 days but did not want additional stool softener. She was hoping to get the steroid injection tomorrow and hopes that it would help her pain so she can go back home. Physical Exam Physical Exam: General: Lying in bed on her side, not in acute distress, on NC HEENT: EOMI, SURI, MMM Chest: Clear breath sounds bilaterally, no wheezes or crackles CVS: Regular rate and rhythm, normal heart sounds, no murmur Abdomen: Soft, non tender, not distended, normal bowel sounds Neuro: Awake, alert, oriented, conversing well, non focal Extremities: No cyanosis, clubbing or edema Results & Data Results & Data ([facility]) Vital Signs (Past 12 Hours) Vital Signs Temp Pulse Resp BP BP Pulse Ox 07/22/21 07:13 68 18 95 07/22/21 07:07 36.5 C 82 18 94/60 L 100/67 95 07/22/21 06:10 95 H 117/61 07/22/21 03:36 93 H 22 94 07/22/21 03:19 109/68 94 Medications Administered Current Inpatient Medications Acetaminophen (Acetaminophen 325 Mg Tab) 650 mg PO Q6 [facility] Stop: 08/20/21 11:59 Last Admin: 07/22/21 12:47 Dose: 650 mg Documented by: Albuterol (Albuterol Hfa 8 Gm Inhaler) 2 puffs INH QID PRN PRN Reason: shortness of breath or wheezing Stop: 08/11/21 18:32 Last Admin: 07/22/21 03:33 Dose: 2 puffs Documented by: Alprazolam (Alprazolam 0.5 Mg Tablet) 0.5 mg PO HS [facility] Stop: 08/11/21 20:59 Last Admin: 07/21/21 21:13 Dose: 0.5 mg Documented by: Aspirin (Aspirin 81 Mg Ectab) 81 mg PO DAILY [facility] Stop: 08/12/21 08:59 Last Admin: 07/22/21 08:50 Dose: 81 mg Documented by: Atorvastatin Calcium (Atorvastatin 10 Mg Tab) 10 mg PO QAM [facility] Stop: 08/12/21 08:59 Last Admin: 07/22/21 08:49 Dose: 10 mg Documented by: Azithromycin (Azithromycin 250 Mg Tab) 250 mg PO MoWeFr@0900 [facility] Stop: 08/12/21 08:59 Last Admin: 07/20/21 08:32 Dose: 250 mg Documented by: Bisacodyl (Bisacodyl 5 Mg Tabec) 5 mg PO DAILY [facility] Stop: 08/12/21 08:59 Last Admin: 07/22/21 08:49 Dose: 5 mg Documented by: Bisacodyl (Bisacodyl 10 Mg Supp) 10 mg DE DAILY PRN PRN Reason: Constipation Stop: 08/11/21 22:22 Budesonide (Budesonide 0.25 Mg/2 Ml Vial (Pulmicort)) 0.25 mg INH BIDR [facility] Stop: 08/12/21 08:59 Last Admin: 07/22/21 07:12 Dose: 0.25 mg Documented by: Celecoxib (Celecoxib 100 Mg Cap) 100 mg PO BID [facility] Stop: 08/16/21 20:59 Last Admin: 07/22/21 08:49 Dose: 100 mg Documented by: Duloxetine HCl (Duloxetine Hcl 60 Mg Cap) 60 mg PO DAILY [facility] Stop: 08/17/21 08:59 Last Admin: 07/22/21 08:49 Dose: 60 mg Documented by: Enoxaparin Sodium (Enoxaparin Inj 40 Mg/0.4 Ml Syr) 40 mg SQ QAM [facility] Stop: 08/17/21 08:59 Last Admin: 07/22/21 08:50 Dose: 40 mg Documented by: Formoterol Fumarate (Formoterol 20 Mcg/2 Ml Vial) 20 mcg NEB BIDR [facility] Stop: 08/12/21 18:59 Last Admin: 07/22/21 07:13 Dose: 20 mcg Documented by: Lidocaine (Lidocaine 5% 1 Patch) 1 patch TD QAM [facility] Stop: 08/13/21 10:24 Last Admin: 07/22/21 08:50 Dose: 1 patch Documented by: Loratadine (Loratadine 10 Mg Tab) 10 mg PO DAILY [facility] Stop: 08/12/21 08:59 Last Admin: 07/22/21 08:49 Dose: 10 mg Documented by: Metoprolol Succinate (Metoprolol Succ 25mg Ext Rel Tab) 25 mg PO DAILY [facility] Stop: 08/12/21 08:59 Last Admin: 07/22/21 08:51 Dose: Not Given Documented by: Miscellaneous (Remove Lidoderm Patch) 1 ea N/A DAILY@2100 [facility] Stop: 08/13/21 20:59 Last Admin: 07/21/21 21:13 Dose: 1 ea Documented by: Morphine Sulfate (Morphine Sulfate 4 Mg/Ml 1 Ml Carp\Vial) 4 mg IV Q2H PRN PRN Reason: Severe Pain Stop: 07/26/21 22:22 Last Admin: 07/22/21 06:14 Dose: 4 mg Documented by: Ondansetron HCl (Ondansetron Inj 2 Mg/Ml 2 Ml Vial) 4 mg IV Q4H PRN PRN Reason: Nausea And Vomiting Stop: 08/11/21 22:22 Oxycodone HCl (Oxycodone Hcl Ir 5 Mg Tab (Immediate Release)) 5 - 10 mg PO Q4 PRN PRN Reason: Pain Stop: 08/04/21 11:32 Last Admin: 07/22/21 08:49 Dose: 10 mg Documented by: Polyethylene Glycol (Polyethylene (Miralax) 17 Gm Pack) 17 gm PO DAILY PRN PRN Reason: Constipation Stop: 08/11/21 22:22 Polyethylene Glycol (Polyethylene (Miralax) 17 Gm Pack) 17 gm PO DAILY [facility] Stop: 08/12/21 09:44 Last Admin: 07/22/21 08:59 Dose: 17 gm Documented by: Polymyxin/Trimethoprim Sulfate (Trimethoprim/Polymyxin B) 1 drops OPL Q4H [facility] Stop: 07/25/21 18:59 Last Admin: 07/22/21 12:47 Dose: 1 drops Documented by: Pregabalin (Pregabalin 150 Mg Cap) 150 mg PO BID [facility] Stop: 08/11/21 20:59 Last Admin: 07/22/21 08:49 Dose: 150 mg Documented by:
[2021-07-22] MEDS: ALPRAZolam 0.5 MG TABLET PO SCH (20:54)
[2021-07-23] MEDS: TRIMETHOPRIM/POLYMYXIN B OPL SCH ×7 (00:08→22:24)
[2021-07-23] MEDS: ACETAMINOPHEN 325 MG TAB PO SCH ×5 (00:22→23:14)
[2021-07-23] MEDS: oxyCODONE HCL IR 5 MG TAB (IMMEDIATE RELEASE) PO PRN ×4 (03:38→18:10)
[2021-07-23] MEDS: BUDESONIDE 0.25 MG/2 ML VIAL (PULMICORT) INH SCH ×2 (07:01→19:19)
[2021-07-23] MEDS: FORMOTEROL 20 MCG/2 ML VIAL NEB SCH ×2 (07:01→19:19)
[2021-07-23] MEDS: PREGABALIN 150 MG CAP PO SCH ×2 (07:47→20:07)
[2021-07-23] MEDS: METOPROLOL SUCC 25MG EXT REL TAB PO SCH (07:48)
[2021-07-23] MEDS: DULoxetine HCL 60 MG CAP PO SCH (07:48)
[2021-07-23] MEDS: AZITHROMYCIN 250 MG TAB PO SCH (07:48)
[2021-07-23] MEDS: ATORVASTATIN 10 MG TAB PO SCH (07:49)
[2021-07-23] MEDS: LIDOCAINE 5% 1 PATCH TD SCH (07:49)
[2021-07-23] MEDS: LORATADINE 10 MG TAB PO SCH (07:49)
[2021-07-23] MEDS: ASPIRIN 81 MG ECTAB PO SCH (07:49)
[2021-07-23] MEDS: CELECOXIB 100 MG CAP PO SCH ×2 (07:49→20:08)
[2021-07-23] MEDS: POLYETHYLENE (MIRALAX) 17 GM PACK PO SCH (07:50)
[2021-07-23] MEDS: bisacodyL 5 MG TABEC PO SCH (07:50)
--- NOTE | 2021-07-23 15:27 | Hospitalist Progress Note ---
Date of Service July 23, 2021 Assessment & Plan (1) Lower extremity weakness: (2) Avascular necrosis of bones of both hips: (3) Unable to walk: (4) Bacterial conjunctivitis of left eye: (5) Hypotension: (6) Anxiety: Plan: LE weakness likely secondary to spinal stenosis and avascular necrosis of the hips bilaterally after care home history of steroids in the past. - Generally bilateral hip replacement would be the treatment, however, she is high risk from a pulmonary status for an elective surgery. Ortho is planning to attempt bilateral steroid injections. Goal in patient's mind is to be in less pain, with questionable ability to move. - PDMP reviewed- she was on oxy before. She was having significant pain despite norco, hence medications changed 07/21. Continue multimodal pain management- continue oxy q4hr prn, tylenol q6hr, continue lidoderm patch, cymbalta, celebrex, lyrica, medrol dosepak. Continue bowel regimen - Spoke with Dr Castano from pain management who stated the injection can be done only as OP if done by them. Deferred to ortho if they can inject inhouse- spoke to ortho- might have to be done as OP but they will reach out to their providers if anyone can do it inhouse. Spoke to radiology who stated it can be done by them as OP only. - Discussed with patient that we may not be able to get the injection inhouse- if so, she will need to work with PT, go to rehab and get the injection as OP. She was inquiring if the rehab would accept her SS check coz she doesn't want to lose that benefit and her goal is to return home. Her concern is if her pain medication might not be refilled once discharged, just as last time. Recommended she follow up with PCP for the same. MRI cervical spine: 1. Degenerative changes from C4 through C7 as described above resulting in moderate to severe central canal narrowing and bilateral neural foraminal narrowing. This is most pronounced at the C5-C6 level which demonstrates an associated 3 mm focal central disc protrusion. 2. Mild reversal the normal lordotic curvature likely due to long-standing degenerative change. 3. Mild levoscoliosis. MRI lumbar spine 1. Motion artifact. 2. No fractures or subluxation within the lumbar spine. 3. Degenerative changes within the lower lumbar spine most pronounced at the L4- 5 level which demonstrates moderate central canal and moderate bilateral neural foraminal narrowing. Hypotension: BP low normal but stable, likely 2/2 narcotics. Will monitor. On toprol COPD with chronic hypoxic respiratory failure: chronic, stable and not in exacerbation. On chronic oxygen with baseline 2L [place] - continue usual Pulmicort, formoterol nebulization, azithromycin 3 times a week Anxiety: uses Xanax PRN qHS for insomnia/anxiety. Cymbalta daily. Caution with using this and narcotics 2/2 polypharmacy in patient with respiratory issues at baseline. Bacterial conjunctivitis of L eye: On polymyxin drops DVT prophylaxis: sc lovenox Disposition: unclear if steroid injection might happen at all inhouse; more realistically, it will happen as OP. Will get PT eval and look for rehab. Updated Lei over the phone Admission and Anticipated Discharge Date Admission Date: July 12, 2021 Subjective Continues to be in pain- states she like the current schedule with tylenol and oxy rather than morphine as oxy lasts longer although it is slow to kick in. She was hoping to get steroid injection today but it seems it might have to be OP as radiology and pain management can only do as OP per my discussion with those providers. Also spoke to ortho who also stated she might have to get done as OP. Discussed that she might have to go to rehab and then get the injections as OP. Discussed that she will need PT for initiating the rehab process. Physical Exam Physical Exam: General: Lying in bed on her side, not in acute distress, on NC HEENT: EOMI, SURI, MMM Chest: Clear breath sounds bilaterally, no wheezes or crackles CVS: Regular rate and rhythm, normal heart sounds, no murmur Abdomen: Soft, non tender, not distended, normal bowel sounds Neuro: Awake, alert, oriented, conversing well, non focal Extremities: No cyanosis, clubbing or edema Results & Data Results & Data ([facility]) Vital Signs (Past 12 Hours) Vital Signs Temp Pulse Resp BP Pulse Ox 07/23/21 14:08 36.9 C 76 16 96/52 L 95 07/23/21 07:47 36.7 C 86 16 116/68 94 07/23/21 07:01 71 16 97
[2021-07-23] MEDS: ALPRAZolam 0.5 MG TABLET PO SCH (20:07)
[2021-07-24] MEDS: oxyCODONE HCL IR 5 MG TAB (IMMEDIATE RELEASE) PO PRN ×4 (04:22→21:06)
[2021-07-24] MEDS: TRIMETHOPRIM/POLYMYXIN B OPL SCH ×6 (04:23→23:14)
[2021-07-24] MEDS: ACETAMINOPHEN 325 MG TAB PO SCH ×4 (05:41→23:14)
[2021-07-24] MEDS: FORMOTEROL 20 MCG/2 ML VIAL NEB SCH ×2 (07:11→19:42)
[2021-07-24] MEDS: BUDESONIDE 0.25 MG/2 ML VIAL (PULMICORT) INH SCH ×2 (07:11→19:42)
[2021-07-24] MEDS: ASPIRIN 81 MG ECTAB PO SCH (07:50)
[2021-07-24] MEDS: PREGABALIN 150 MG CAP PO SCH ×2 (07:50→21:05)
[2021-07-24] MEDS: CELECOXIB 100 MG CAP PO SCH ×2 (07:50→21:03)
[2021-07-24] MEDS: POLYETHYLENE (MIRALAX) 17 GM PACK PO SCH (07:51)
[2021-07-24] MEDS: bisacodyL 5 MG TABEC PO SCH (07:51)
[2021-07-24] MEDS: ATORVASTATIN 10 MG TAB PO SCH (07:51)
[2021-07-24] MEDS: ENOXAPARIN INJ 40 MG/0.4 ML SYR SQ SCH (07:51)
[2021-07-24] MEDS: DULoxetine HCL 60 MG CAP PO SCH (07:51)
[2021-07-24] MEDS: LORATADINE 10 MG TAB PO SCH (07:52)
[2021-07-24] MEDS: LIDOCAINE 5% 1 PATCH TD SCH (07:52)
[2021-07-24] MEDS: METOPROLOL SUCC 25MG EXT REL TAB PO SCH (07:52)
[2021-07-24] MEDS ORDERED: SODIUM CHLORIDE 0.9% 1000ML 500 ML IV ONE (09:58)
[2021-07-24] MEDS ORDERED: bisacodyL 10 MG SUPP PR ONE (09:59)
--- NOTE | 2021-07-24 13:54 | Hospitalist Progress Note ---
Date of Service July 24, 2021 Assessment & Plan (1) Lower extremity weakness: (2) Avascular necrosis of bones of both hips: (3) Unable to walk: (4) Bacterial conjunctivitis of left eye: (5) Hypotension: (6) Anxiety: Plan: LE weakness likely secondary to spinal stenosis and avascular necrosis of the hips bilaterally after senior care history of steroids in the past. - Generally bilateral hip replacement would be the treatment, however, she is high risk from a pulmonary status for an elective surgery. Ortho is planning to attempt bilateral steroid injections. Goal in patient's mind is to be in less pain, with questionable ability to move. - PDMP reviewed- she was on oxy before. She was having significant pain despite norco, hence medications changed 07/21. - Continue multimodal pain management- continue oxy q4hr prn, tylenol q6hr, continue lidoderm patch, cymbalta, celebrex, lyrica. S/p medrol dosepak. - Spoke with ortho, radiology and pain management- unable to get steroid injection inhouse but can do as OP. Will try to set up OP appt prior to d ischarge MRI cervical spine: 1. Degenerative changes from C4 through C7 as described above resulting in moderate to severe central canal narrowing and bilateral neural foraminal narrowing. This is most pronounced at the C5-C6 level which demonstrates an associated 3 mm focal central disc protrusion. 2. Mild reversal the normal lordotic curvature likely due to long-standing degenerative change. 3. Mild levoscoliosis. MRI lumbar spine 1. Motion artifact. 2. No fractures or subluxation within the lumbar spine. 3. Degenerative changes within the lower lumbar spine most pronounced at the L4- 5 level which demonstrates moderate central canal and moderate bilateral neural foraminal narrowing. Hypotension: BP soft ?due to narcotics. Will give fluid bolus. On toprol with hold parameters. Ce COPD with chronic hypoxic respiratory failure: chronic, stable and not in exacerbation. On chronic oxygen with baseline 2L NC - continue usual Pulmicort, formoterol nebulization, azithromycin 3 times a week Anxiety: uses Xanax PRN qHS for insomnia/anxiety. Cymbalta daily. Caution with using this and narcotics 2/2 polypharmacy in patient with respiratory issues at baseline. Constipation- no BM for over a week. Will give suppository. If not working, will give mag citrate. DVT prophylaxis: sc lovenox Disposition: Unable to get steroid injection inhouse. Will get PT eval and discharge to rehab with OP steroid injection. Admission and Anticipated Discharge Date Admission Date: July 12, 2021 Subjective Spoke to her that steroid injection will not be possible inhouse and will be done only in the office. Stated that she will need PT eval and go to rehab and follow up in the office for steroid injection. Will try to get appointment confirmed prior to discharge. Still no bowel movement- agreeable to more laxative. Physical Exam Physical Exam: General: Lying in bed on her side, not in acute distress, on NC HEENT: EOMI, SURI, MMM Chest: Clear breath sounds bilaterally, no wheezes or crackles CVS: Regular rate and rhythm, normal heart sounds, no murmur Abdomen: Soft, non tender, not distended, normal bowel sounds Neuro: Awake, alert, oriented, conversing well, non focal Extremities: No cyanosis, clubbing or edema Results & Data Results & Data ([facility]) Vital Signs (Past 12 Hours) Vital Signs Temp Pulse Resp BP Pulse Ox 07/24/21 07:55 36.7 C 84 20 89/50 L 95 07/24/21 07:12 78 16 98
[2021-07-24] MEDS: ALBUTEROL HFA 8 GM INHALER INH PRN (14:27)
[2021-07-24] MEDS: ALPRAZolam 0.5 MG TABLET PO SCH (21:05)
[2021-07-25] MEDS: TRIMETHOPRIM/POLYMYXIN B OPL SCH ×4 (03:18→14:15)
[2021-07-25] MEDS: ALBUTEROL HFA 8 GM INHALER INH PRN (03:21)
[2021-07-25] MEDS: oxyCODONE HCL IR 5 MG TAB (IMMEDIATE RELEASE) PO PRN ×4 (03:27→23:07)
[2021-07-25 06:00] LABS: Basophils # (auto) 0.05 K/uL (0-0.2); Basophils % (auto) 0.9 %; Eosinophils # (auto) 0.31 K/uL (0-0.5); Eosinophils % (auto) 5.6 %; Hematocrit (blood only) 29.4 % (37-47); Hemoglobin 9.1 g/dL (12.0-16.0); Lymphocytes # (auto) 2.36 K/uL (1.2-3.4); Lymphocytes % (auto) 42.8 %; Mean Corpuscular Hemoglobin 30.8 pg (25-34); Mean Corpuscular Volume 99.7 fL (80-100); Mean Platelet Volume 9.8 fL (7.4-10.4); Monocytes # (auto) 0.69 K/uL (0.11-0.59); Monocytes % (auto) 12.5 %; Neutrophils % (auto) 38.2 %; Platelet Count 402 K/uL (130-400); RDW Coefficient of Variation 12.1 % (11.5-14.5); RDW Standard Deviation 44.3 fL (36.4-46.3); Red Blood Count 2.95 M/uL (4.2-5.4); White Blood Count 5.51 K/uL (4.8-10.8)
[2021-07-25] MEDS: ACETAMINOPHEN 325 MG TAB PO SCH ×4 (06:12→23:07)
[2021-07-25 06:29] LABS: Albumin Globulin Ratio 1.5 (0.9-2); Albumin Level 3.7 gm/dl (3.4-5.0); BUN Creatinine Ratio 18.7 (10-20); Bilirubin,Total 0.3 mg/dl (0.2-1.0); Calcium 9.4 mg/dl (8.5-10.1); Est GFR (African American) 100.4 ml/min; Est GFR (Non-African American) 86.6 ml/min; Globulin 2.4 gm/dl (2.5-4.0); Magnesium 2.2 mg/dl (1.7-2.4); Phosphorus 4.9 mg/dl (2.5-4.9); Potassium 4.4 mmol/L (3.5-5.1); Total Protein 6.1 gm/dl (6.0-8.3)
[2021-07-25] MEDS: FORMOTEROL 20 MCG/2 ML VIAL NEB SCH ×2 (07:02→19:33)
[2021-07-25] MEDS: BUDESONIDE 0.25 MG/2 ML VIAL (PULMICORT) INH SCH ×2 (07:02→19:33)
[2021-07-25] MEDS: LIDOCAINE 5% 1 PATCH TD SCH (07:41)
[2021-07-25] MEDS: AZITHROMYCIN 250 MG TAB PO SCH (07:44)
[2021-07-25] MEDS: DULoxetine HCL 60 MG CAP PO SCH (07:44)
[2021-07-25] MEDS: POLYETHYLENE (MIRALAX) 17 GM PACK PO SCH (07:44)
[2021-07-25] MEDS: ENOXAPARIN INJ 40 MG/0.4 ML SYR SQ SCH (07:44)
[2021-07-25] MEDS: ATORVASTATIN 10 MG TAB PO SCH (07:44)
[2021-07-25] MEDS: CELECOXIB 100 MG CAP PO SCH ×2 (07:44→20:41)
[2021-07-25] MEDS: ASPIRIN 81 MG ECTAB PO SCH (07:44)
[2021-07-25] MEDS: LORATADINE 10 MG TAB PO SCH (07:45)
[2021-07-25] MEDS: bisacodyL 5 MG TABEC PO SCH (07:45)
[2021-07-25] MEDS: METOPROLOL SUCC 25MG EXT REL TAB PO SCH (07:45)
[2021-07-25] MEDS: PREGABALIN 150 MG CAP PO SCH ×2 (07:49→20:41)
--- NOTE | 2021-07-25 16:25 | Hospitalist Progress Note ---
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 - Generally bilateral hip replacement would be the treatment, however, she is high risk from a pulmonary status for an elective surgery. Ortho is planning to attempt bilateral steroid injections. Goal in patient's mind is to be in less pain, with questionable ability to move. - PDMP reviewed- she was on oxy before. She was having significant pain despite norco, hence medications changed 07/21. - Continue multimodal pain management- continue oxy q4hr prn, tylenol q6hr, continue lidoderm patch, cymbalta, celebrex, lyrica. S/p medrol dosepak. - Spoke with ortho, radiology and pain management- unable to get steroid injection inhouse but can do as OP. Will try to set up OP appt prior to d ischarge MRI cervical spine: 1. Degenerative changes from C4 through C7 as described above resulting in moderate to severe central canal narrowing and bilateral neural foraminal narrowing. This is most pronounced at the C5-C6 level which demonstrates an associated 3 mm focal central disc protrusion. 2. Mild reversal the normal lordotic curvature likely due to long-standing degenerative change. 3. Mild levoscoliosis. MRI lumbar spine 1. Motion artifact. 2. No fractures or subluxation within the lumbar spine. 3. Degenerative changes within the lower lumbar spine most pronounced at the L4- 5 level which demonstrates moderate central canal and moderate bilateral neural foraminal narrowing. Hypotension: BP soft ?due to narcotics. S/p fluid bolus. Cut down toprol COPD with chronic hypoxic respiratory failure: chronic, stable and not in exacerbation. On chronic oxygen with baseline 2L NC - continue usual Pulmicort, formoterol nebulization, azithromycin 3 times a week Anxiety: uses Xanax PRN qHS for insomnia/anxiety. Cymbalta daily. Caution with using this and narcotics 2/2 polypharmacy in patient with respiratory issues at baseline. Constipation- no BM for over a week despite suppository. Will give mag citrate. DVT prophylaxis: sc lovenox Disposition: Unable to get steroid injection inhouse. Plan for rehab and OP steroid injection- pending insurance auth for placement Admission and Anticipated Discharge Date Admission Date: July 12, 2021 Subjective Continues to have pain and difficulty with ambulation. Discussed about tentative ortho appt for 08/01 for steroid injection and need for paperwork prior to that if everything goes through. She is asking how soon she can be discharged. Still no bowel movements despite suppository. Agreeable to more laxative. Physical Exam Physical Exam: General: Lying in bed on her side, not in acute distress, on NC HEENT: EOMI, SURI, MMM Chest: Clear breath sounds bilaterally, no wheezes or crackles CVS: Regular rate and rhythm, normal heart sounds, no murmur Abdomen: Soft, non tender, not distended, normal bowel sounds Neuro: Awake, alert, oriented, conversing well, non focal Extremities: No cyanosis, clubbing or edema Results & Data Results & Data ([facility]) Vital Signs (Past 12 Hours) Vital Signs Temp Pulse Resp BP Pulse Ox 07/25/21 07:47 36.3 C L 107 H 18 99/65 L 98 07/25/21 07:03 82 18 97 Laboratory Results Short CBC 07/25/21 Range/Units 05:37 WBC 5.51 (4.8-10.8) K/uL Hgb 9.1 L (12.0-16.0) g/dL Hct 29.4 L (37-47) % Plt Count 402 H (130-400) K/uL BMP 07/25/21 05:37 Sodium 139 Potassium 4.4 Chloride 102 Carbon Dioxide 33 H BUN 14 Creatinine 0.75 Glucose 95 Calcium 9.4 Cardiac Enzymes 07/25/21 Range/Units 05:37 Total Creatine Kinase 122 (26-192) U/L Liver Function 07/25/21 Range/Units 05:37 Total Bilirubin 0.3 (0.2-1.0) mg/dl AST 15 (13-39) U/L ALT 6 L (7-52) U/L Alkaline Phosphatase 41 (34-104) U/L Albumin 3.7 (3.4-5.0) gm/dl Medications Administered Current Inpatient Medications Acetaminophen (Acetaminophen 325 Mg Tab) 650 mg PO Q6 [facility] Stop: 08/20/21 11:59 Last Admin: 07/25/21 11:18 Dose: 650 mg Documented by: Albuterol (Albuterol Hfa 8 Gm Inhaler) 2 puffs INH QID PRN PRN Reason: shortness of breath or wheezing Stop: 08/11/21 18:32 Last Admin: 07/25/21 03:21 Dose: 2 puffs Documented by: Alprazolam (Alprazolam 0.5 Mg Tablet) 0.5 mg PO HS REPLACED BY [facility] Stop: 08/11/21 20:59 Last Admin: 07/24/21 21:05 Dose: 0.5 mg Documented by: Aspirin (Aspirin 81 Mg Ectab) 81 mg PO DAILY [facility] Stop: 08/12/21 08:59 Last Admin: 07/25/21 07:44 Dose: 81 mg Documented by: Atorvastatin Calcium (Atorvastatin 10 Mg Tab) 10 mg PO QAM REPLACED BY [facility] Stop: 08/12/21 08:59 Last Admin: 07/25/21 07:44 Dose: 10 mg Documented by: Azithromycin (Azithromycin 250 Mg Tab) 250 mg PO MoWeFr@0900 REPLACED [facility] Stop: 08/12/21 08:59 Last Admin: 07/25/21 07:44 Dose: 250 mg Documented by: Bisacodyl (Bisacodyl 5 Mg Tabec) 5 mg PO DAILY [facility] Stop: 08/12/21 08:59 Last Admin: 07/25/21 07:45 Dose: 5 mg Documented by: Bisacodyl (Bisacodyl 10 Mg Supp) 10 mg CO DAILY PRN PRN Reason: Constipation Stop: 08/11/21 22:22 Budesonide (Budesonide 0.25 Mg/2 Ml Vial (Pulmicort)) 0.25 mg INH BIDR [facility]PL[facility] Stop: 08/12/21 08:59 Last Admin: 07/25/21 07:02 Dose: 0.25 mg Documented by: Celecoxib (Celecoxib 100 Mg Cap) 100 mg PO BID [facility] Stop: 08/16/21 20:59 Last Admin: 07/25/21 07:44 Dose: 100 mg Documented by: Duloxetine HCl (Duloxetine Hcl 60 Mg Cap) 60 mg PO DAILY [facility] Stop: 08/17/21 08:59 Last Admin: 07/25/21 07:44 Dose: 60 mg Documented by: Enoxaparin Sodium (Enoxaparin Inj 40 Mg/0.4 Ml Syr) 40 mg SQ QAM REPLACED BY [facility] Stop: 08/17/21 08:59 Last Admin: 07/25/21 07:44 Dose: 40 mg Documented by: Formoterol Fumarate (Formoterol 20 Mcg/2 Ml Vial) 20 mcg NEB BIDR REPL[facility]ED [facility] Stop: 08/12/21 18:59 Last Admin: 07/25/21 07:02 Dose: 20 mcg Documented by: Lidocaine (L[facility]ocaine 5% 1 Patch) [facility] Stop: 08/13/21 10:24 Last Admin: 07/25/21 07:41 Dose: 1 patch Documented by: Loratadine (Loratadine 10 Mg Tab) 10 mg PO DAILY [facility] Stop: 08/12/21 08:59 Last Admin: 07/25/21 07:45 Dose: 10 mg Documented by: Magnesium Citrate (Magnesium Citrate 296 Ml/Btl) 148 ml PO TODAY@ REPLACED BY [facility] Stop: 08/24/21 16:29 Metoprolol Succinate (Metoprolol Succ 25mg Ext Rel Tab) 25 mg PO DAILY REPLACED BY [facility] Stop: 08/12/21 08:59 Last Admin: 07/25/21 07:45 Dose: Not Given Documented by: Miscellaneous (Remove Lidoderm Patch) 1 ea N/A DAILY@2100 REPLACED BY [facility] Stop: 08/13/21 20:59 Last Admin: 07/24/21 21:02 Dose: 1 ea Documented by: Morphine Sulfate (Morphine Sulfate 4 Mg/Ml 1 Ml Carp\Vial) 4 mg IV Q2H PRN PRN Reason: Severe Pain Stop: 07/26/21 22:22 Last Admin: 07/22/21 06:14 Dose: 4 mg Documented by: Ondansetron HCl (Ondansetron Inj 2 Mg/Ml 2 Ml Vial) 4 mg IV Q4H PRN PRN Reason: Nausea And Vomiting Stop: 08/11/21 22:22 Oxycodone HCl (Oxycodone Hcl Ir 5 Mg Tab (Immediate Release)) 5 - 10 mg PO Q4 PRN PRN Reason: Pain Stop: 08/04/21 11:32 Last Admin: 07/25/21 14:14 Dose: 10 mg Documented by: Polyethylene Glycol (Polyethylene (Miralax) 17 Gm Pack) 17 gm PO DAILY PRN PRN Reason: Constipation Stop: 08/11/21 22:22 Polyethylene Glycol (Polyethylene (Miralax) 17 Gm Pack) 17 gm PO DAILY REPLACED BY [facility] Stop: 08/12/21 09:44 Last Admin: 07/25/21 07:44 Dose: 17 gm Documented by: Polymyxin/Trimethoprim Sulfate (Trimethoprim/Polymyxin B) 1 drops OPL Q4H REPLACED BY [facility] Stop: 07/25/21 18:59 Last Admin: 07/25/21 14:15 Dose: 1 drops Documented by: Pregabalin (Pregabalin 150 Mg Cap) 150 mg PO BID REPLACED BY [facility] Stop: 08/11/21 20:59 Last Admin: 07/25/21 07:49 Dose: 150 mg Documented by:
[2021-07-25] MEDS ORDERED: MAGNESIUM CITRATE 296 ML/BTL PO ONE (16:30)
[2021-07-25] MEDS: ALPRAZolam 0.5 MG TABLET PO SCH (20:41)
[2021-07-26] MEDS: oxyCODONE HCL IR 5 MG TAB (IMMEDIATE RELEASE) PO PRN ×2 (05:02→09:14)
[2021-07-26] MEDS: ACETAMINOPHEN 325 MG TAB PO SCH ×2 (05:02→12:42)
[2021-07-26] MEDS: FORMOTEROL 20 MCG/2 ML VIAL NEB SCH (07:13)
[2021-07-26] MEDS: BUDESONIDE 0.25 MG/2 ML VIAL (PULMICORT) INH SCH (07:13)
[2021-07-26] MEDS: LORATADINE 10 MG TAB PO SCH (08:06)
[2021-07-26] MEDS: ATORVASTATIN 10 MG TAB PO SCH (08:06)
[2021-07-26] MEDS: ASPIRIN 81 MG ECTAB PO SCH (08:06)
[2021-07-26] MEDS: DULoxetine HCL 60 MG CAP PO SCH (08:06)
[2021-07-26] MEDS: ENOXAPARIN INJ 40 MG/0.4 ML SYR SQ SCH (08:06)
[2021-07-26] MEDS: CELECOXIB 100 MG CAP PO SCH (08:06)
[2021-07-26] MEDS: bisacodyL 5 MG TABEC PO SCH (08:07)
[2021-07-26] MEDS: POLYETHYLENE (MIRALAX) 17 GM PACK PO SCH (08:07)
[2021-07-26] MEDS: LIDOCAINE 5% 1 PATCH TD SCH (08:07)
[2021-07-26] MEDS ORDERED: METOPROLOL SUCC 25MG EXT REL TAB PO SCH (09:00)
[2021-07-26] MEDS: PREGABALIN 150 MG CAP PO SCH (09:14)
--- NOTE | 2021-07-26 11:48 | Ultrasound Report ---
BILATERAL LOWER EXTREMITY VENOUS DOPPLER CLINICAL HISTORY: Bilateral leg pain. COMPARISON STUDY: No previous studies for comparison. TECHNIQUE: Sonography of the deep venous system of the bilateral lower extremities was performed. Co mpression and augmentation were evaluated. FINDINGS: The bilateral common femoral, superficial femoral and popliteal veins were compressible. A ugmentation was normal. Flow was shown within the deep calf vessels. IMPRESSION: No evidence of deep venous thrombus within the bilateral lower extremities. ACT 112: Negative or not required by law. Electronically signed by: Moreno Fernandes M.D. 07/26/2021 11:46 AM
--- NOTE | 2021-07-26 16:36 | Discharge Summary ---
Date of Service July 26, 2021 Admission HPI Per Admitting Provider This is a 60-year-old female with PMHx of severe COPD, acute on chronic respiratory failure, chronic hypoxic respiratory failure, anxiety, who presents to the ER with acute onset of hip pain. Pt reports this has gone from walking with the walker 3 weeks ago to being nearly bedbound. She has been able to get up and pivot with transfers from bed to bedside toilet, however due to her pain she is so slow and is at times unable to make it to bedside in time. She reports her pain is well controlled at rest, however feels incredibly debilitated. Her boyfriend who is present at bedside, reports that he is unable to care for her at home by himself. He works 12-hour shifts and otherwise she is home by herself. Office of aging has been involved in her care and they are currently awaiting a ramp to be built outside their home. They have not been able to look into home health or other pay [id number] caregiver. At this time they are looking for Jessica to go for placement in a facility for some rehab, with potential to stay there indefinitely. She reports her breathing is about the same as it always has been. She wears 2 L of oxygen via nasal cannula at rest and 3 L with minimal exertion. She has been using her nebulizers and Brovana inhaler and Ventolin inhaler as directed. She has been off of all steroids and narcotic medication for some time now. She also reports that she has not been taking diuretic daily, and only takes it whenever her legs get swollen. She feels that she is nearly incontinent and is unable to get to the toilet in time so does not take it. Patient follows with pulmonology as outpatient and [facility] Admission Exam Per Admitting Provider General: awake, alert, no apparent distress, appears much older than stated age, obese Head: Normocephalic, atraumatic ENT: PERRL, EOMI, no pharyngeal exudate, mucous membranes moist Chest: Diminished breath sounds throughout, + on 2L via NC, few expiratory wheeze on the right base, no rales or rhonchi Cardiac: Regular rate and rhythm, no murmur, no JVD, normal peripheral pulses, good capillary refill Abdominal: NABS x 4 quadrants, soft, nondistended, nontender to palpation, no rebound or guarding Extremities: Normal inspection, no peripheral edema or erythema, calfs nontender to palpation Psych: Normal mood and affect Neuro: AAO x 3, strength intact bilaterally and rated 3/5 in lower extremities, no motor deficits, speech is clear, no peripheral sensory deficits Principal Diagnosis Ambulatory dysfunction, bilateral hip pain, avascular necrosis bilateral hip Discharge Exam General: Lying in bed on her side, not in acute distress, on NC HEENT: EOMI, SURI, MMM Chest: Clear breath sounds bilaterally, no wheezes or crackles CVS: Regular rate and rhythm, normal heart sounds, no murmur Abdomen: Soft, non tender, not distended, normal bowel sounds Neuro: Awake, alert, oriented, conversing well, non focal Extremities: No cyanosis, clubbing or edema Discharge Data Allergies Allergy/AdvReac Type Severity Reaction Status Date / Time Penicillins Allergy Severe hives Verified 07/12/21 18:39 albuterol [From ProAir HFA] AdvReac Intermediate Does not Verified 07/12/21 18:39 help symptoms -does nothing for her fluticasone AdvReac Intermediate Does Verified 07/12/21 18:39 [From Advair Diskus] nothing for her-does not help symptoms salmeterol AdvReac Intermediate Does Verified 07/12/21 18:39 [From Advair Diskus] nothing for her-does not help symptoms Consultations 07/12/21 17:32 ED Decision to Admit Stat 07/13/21 09:26 Consult Orthopedic Surgery Routine 07/14/21 10:24 Consult Orthopedic Surgery Routine 07/16/21 17:31 Consult Pulmonology Routine 07/17/21 08:05 Consult Pain Management Routine Ordered Studies 07/12/21 16:59 CT bony pelvis wo con Stat 07/13/21 09:26 CT lumbar spine wo con Routine 07/13/21 10:09 CT cervical spine wo con Routine 07/13/21 13:23 MR cervical spine wo con Routine MR lumbar spine wo con Routine 07/16/21 17:36 CT tib/fib RT wo con Urgent 07/26/21 09:37 US venous doppler LE BI Urgent Laboratory Results WBC 5.51 K/uL (4.8-10.8) 07/25/21 05:37 RBC 2.95 M/uL (4.2-5.4) L 07/25/21 05:37 Hgb 9.1 g/dL (12.0-16.0) L 07/25/21 05:37 Hct 29.4 % (37-47) L 07/25/21 05:37 MCV 99.7 fL (80-100) 07/25/21 05:37 MCH 30.8 pg (25-34) 07/25/21 05:37 MCHC 31.0 g/dL (32-36) L 07/25/21 05:37 RDW Std Deviation 44.3 fL (36.4-46.3) 07/25/21 05:37 RDW Coeff of Jose 12.1 % (11.5-14.5) 07/25/21 05:37 Plt Count 402 K/uL (130-400) H 07/25/21 05:37 MPV 9.8 fL (7.4-10.4) 07/25/21 05:37 Immature Gran % (Auto) 0.0 % 07/25/21 05:37 Neut % (Auto) 38.2 % 07/25/21 05:37 Lymph % (Auto) 42.8 % 07/25/21 05:37 [place] % (Auto) 12.5 % 07/25/21 05:37 Eos % (Auto) 5.6 % 07/25/21 05:37 Baso % (Auto) 0.9 % 07/25/21 05:37 Neut # (Auto) 2.10 K/uL (1.4-6.5) 07/25/21 05:37 Lymph # (Auto) 2.36 K/uL (1.2-3.4) 07/25/21 05:37 [place] # (Auto) 0.69 K/uL (0.11-0.59) H 07/25/21 05:37 Eos # (Auto) 0.31 K/uL (0-0.5) 07/25/21 05:37 Baso # (Auto) 0.05 K/uL (0-0.2) 07/25/21 05:37 Immature Gran # (Auto) 0.00 K/uL (0.00-0.02) 07/25/21 05:37 Sodium 139 mmol/L (136-145) 07/25/21 05:37 Potassium 4.4 mmol/L (3.5-5.1) 07/25/21 05:37 Chloride 102 mmol/L (98-107) 07/25/21 05:37 Carbon Dioxide 33 mmol/L (21-32) H 07/25/21 05:37 Anion Gap 4 (3-11) 07/25/21 05:37 BUN 14 mg/dl (6-23) 07/25/21 05:37 Creatinine 0.75 mg/dl (0.6-1.2) 07/25/21 05:37 Est Cr Clr Drug Dosing 80.0 ml/min 07/25/21 05:37 Est GFR ( Amer) 100.4 ml/min 07/25/21 05:37 Est GFR (Non-Af Amer) 86.6 ml/min 07/25/21 05:37 BUN/Creatinine Ratio 18.7 (10-20) 07/25/21 05:37 Glucose 95 mg/dl (70-99(Fasting)) 07/25/21 05:37 Calcium 9.4 mg/dl (8.5-10.1) 07/25/21 05:37 Phosphorus 4.9 mg/dl (2.5-4.9) 07/25/21 05:37 Magnesium 2.2 mg/dl (1.7-2.4) 07/25/21 05:37 Total Bilirubin 0.3 mg/dl (0.2-1.0) 07/25/21 05:37 AST 15 U/L (13-39) 07/25/21 05:37 ALT 6 U/L (7-52) L 07/25/21 05:37 Alkaline Phosphatase 41 U/L (34-104) 07/25/21 05:37 Total Creatine Kinase 122 U/L (26-192) 07/25/21 05:37 Total Protein 6.1 gm/dl (6.0-8.3) 07/25/21 05:37 Albumin 3.7 gm/dl (3.4-5.0) 07/25/21 05:37 Globulin 2.4 gm/dl (2.5-4.0) L 07/25/21 05:37 Albumin/Globulin Ratio 1.5 (0.9-2) 07/25/21 05:37 Urine Color Yellow 07/13/21 21:00 Urine Appearance Clear (Clear) 07/13/21 21:00 Urine pH 5.5 (4.5-7.5) 07/13/21 21:00 Ur Specific [place] 1.023 (1.000-1.030) 07/13/21 21:00 Urine Protein Negative (Negative) 07/13/21 21:00 Urine Glucose (UA) Negative (Negative) 07/13/21 21:00 Urine Ketones Negative (Negative) 07/13/21 21:00 Urine Blood 3+ (Negative) H 07/13/21 21:00 Urine Nitrite Negative (Negative) 07/13/21 21:00 Urine Bilirubin Negative (Negative) 07/13/21 21:00 Urine Urobilinogen Negative (Negative) 07/13/21 21:00 Ur Leukocyte Esterase 1+ (Negative) H 07/13/21 21:00 Urine WBC (Auto) 10-30 /hpf (0-5) H 07/13/21 21:00 Urine RBC (Auto) 5-10 /hpf (0-4) H 07/13/21 21:00 U Hyaline Cast (Auto) 1-5 /lpf (0-5) 07/13/21 21:00 U Epithel Cells (Auto) >30 /lpf (0-5) H 07/13/21 21:00 Urine Bacteria (Auto) Negative (Negative) 07/13/21 21:00 SARS-CoV-2, RNA, NAAT NEGATIVE (NEGATIVE) 07/26/21 14:[address] 07/12/21 16:59 CT bony pelvis wo con CLINICAL HISTORY: b/l hip pain, arthritis, amb dysfunction TECHNIQUE: Multisequence, multiplanar MR images of the pelvis were obtained without contrast COMPARISON: None available at the time of this dictation. FINDINGS: Severe degenerative changes are seen in the bilateral hip joints. Degenerative changes are seen in the lower lumbar spine. No acute fracture is seen. No joint effusion is seen. Visualized abdominal contents are unremarkable. Atherosclerotic disease is seen. IMPRESSION: Severe degenerative changes in bilateral hip joints. No evidence of acute fracture. ACT 112: Negative or not required by law. Electronically signed by: Chai Fulton M.D. 07/12/2021 7:[address] 07/13/21 09:26 CT lumbar spine wo con CLINICAL HISTORY: BL leg weakness, r/o spinal stenosis TECHNIQUE: Multidetector row helical CT of the lumbar spine was performed without administration of intravenous contrast. Coronal and sagittal reformations were obtained. Automated dose lowering techniques and/or adjustment according to patient size were utilized for this exam. CT DOSE: 649.10 mGycm Comparison: None available at the time of this dictation. FINDINGS: For counting purposes, the last complete intervertebral disc space is considered L5-S1. No acute fractures are identified. Multilevel degenerative changes are seen with severe degenerative disc disease at L4-L5 and L5-S1 with likely neural foraminal and canal stenosis. Vertebral body alignment is within normal limits. Surrounding soft tissues are unremarkable. IMPRESSION: Multilevel degenerative changes most evident at L4-L5 and L5-S1. If there is concern for neural foraminal or spinal stenosis, MRI can be performed. ACT 112: Negative or not required by law. Electronically signed by: Chai Fulton M.D. 07/13/2021 11:[address] 07/13/21 10:09 CT cervical spine wo con CT DOSE: 439.01 mGycm CLINICAL HISTORY: 60 years-old Female with leg weakness, r/o stenosis, compression. Chronic neck pain with lower extremity weakness COMPARISON: None. TECHNIQUE: Multiple axial CT images of the cervical spine were obtained without contrast. A dose lowering technique was utilized adhering to the principles of ALARA. FINDINGS: There is reversal the normal cervical lordosis, apex at C4-C5. Moderate to severe intervertebral disc space narrowing at C4-C5, C5-C6 and C6 or C7. Moderate to advanced multilevel spondylitic spurring with uncovertebral hypertrophy and posterior disc osteophyte complex formations. Multilevel facet arthrosis, severe at C7-T1. Developmental enlargement of the bilateral C4 facets. 3 mm anterolisthesis C3 on C4 is likely degenerative. No acute fracture or subluxation is identified. No endplate erosions. There is multilevel at least moderate neural foraminal narrowing. There is no high-grade central canal stenosis. There is at least [id number] central canal stenosis at C5-C6. Evaluation of the central canal and neuroforamina is better assessed by MRI. The cervical soft tissues appear unremarkable. Pulmonary emphysema. There is no pneumothorax. Calcified plaque of the carotid bulbs. No prevertebral edema. IMPRESSION: 1. No acute cervical spine fracture or subluxation. 2. Multilevel degenerative changes of the cervical spine. Evaluation of the central canal and neuroforamina is better assessed by MRI. ACT 112: Negative or not required by law. The above report was generated using voice recognition software. It may contain grammatical, syntax or spelling errors. Electronically signed by: Jose L Smith M.D. 07/13/2021 11:15 AM Cervical Spine MRI 07/13/21 13:23 CERVICAL SPINE MRI HISTORY: Neck pain. leg weakness, r/o spinal compression/stenosis TECHNIQUE: Multiplanar multisequence MRI of the cervical spine was performed without the use of contrast. COMPARISON STUDY: Cervical spine CT 07/13/2021. FINDINGS: Suboptimal evaluation of the cervical spine due to mild motion franklin fact. There is mild levoscoliosis. There is mild reversal the normal lordotic curvature. There is 2 mm of retrolisthesis of C3 on C4. No definite fractures identified within the cervical spine. Prevertebral soft tissues and the C1-C2 interval are intact. The visualized posterior fossa is unremarkable. The cervical spinal cord demonstrates a normal signal intensity. There is moderate disc space narrowing at C4-C5, C5-C6, and C6-C7 with anterior osteophytes. C2-C3: No significant central canal or neural foraminal narrowing. C3-C4: Small broad-based posterior disc osteophyte complex without significant central canal or neural foraminal narrowing. C4-C5: Broad-based posterior disc osteophyte complex resulting in complete effacement of the anterior thecal sac with mild cord deformity. This consistent with moderate central canal narrowing. The AP diameter of the central canal is approximately 6 mm. There is also severe right and moderate left neural foraminal narrowing due to the uncovertebral hypertrophy. C5-C6: There is a 3 mm focal central disc protrusion which abuts and moderately deforms the cord. In conjunction with the broad-based posterior disc osteophyte complex there is moderate to severe central canal narrowing with the AP diameter measuring less than 5 mm. There is moderate right and mild left neural foraminal narrowing due to the uncovertebral hypertrophy. C6-C7: Small broad-based posterior disc osteophyte complex resulting in effacement of the anterior thecal sac with mild cord deformity. The AP diameter of the central canal is 7 mm consistent with moderate central canal narrowing. There is severe bilateral neural foraminal narrowing due to the uncovertebral hypertrophy. C7-T1: No significant central canal or neural foraminal narrowing. IMPRESSION: 1. Degenerative changes from C4 through C7 as described above resulting in moderate to severe central canal narrowing and bilateral neural foraminal narrowing. This is most pronounced at the C5-C6 level which demonstrates an associated 3 mm focal central disc protrusion. 2. Mild reversal the normal lordotic curvature likely due to long-standing degenerative change. 3. Mild levoscoliosis. ACT 112: Negative or not required by law. Electronically signed by: Onesimo Berry M.D. 07/13/2021 4:49 PM Lumbar Spine MRI 07/13/21 13:23 LUMBAR SPINE MRI HISTORY: leg weakness, r/o spinal compression/stenosis TECHNIQUE: Multiplanar multisequence MRI of the lumbar spine was performed without the use of contrast. COMPARISON: CT lumbar spine 07/13/2021. FINDINGS: For the purpose of the report the L5-S1 disc space will be located on axial image 27 of 30. Suboptimal evaluation lumbar spine due to the motion artifact. This most pronounced on the axial images. There is straightening of the lumbar spine. There is severe disc space narrowing at L4-5 and L5-S1 with small endplate osteophytes. The remaining disc spaces are served. The conus terminates at the L1 level. Endplate degenerative changes from L4 through S1. Increased T2 signal within the L4-5 and L5-S1 disc spaces is likely due to the long-standing degenerative change. No significant paravertebral edema. The visualized sacrum is intact. Mild facet degenerative changes within the lumbar spine. There is subcutaneous edema within the lumbar region which is likely chronic. L1-L2: No significant central canal or neural foraminal narrowing. L2-L3: No significant central canal or neural foraminal narrowing. L3-L4: Small broad-based posterior disc bulge without significant central canal or neural foraminal narrowing. L4-L5: Broad-based posterior disc osteophyte complex with ligamentum and facet hypertrophy resulting in moderate central canal and moderate bilateral neural foraminal narrowing. The AP diameter of the central canal measures approximately 7.7 mm. L5-S1: Small broad-based posterior disc bulge without significant central canal narrowing. There is moderate bilateral neural foraminal narrowing. IMPRESSION: 1. Motion artifact. 2. No fractures or subluxation within the lumbar spine. 3. Degenerative changes within the lower lumbar spine most pronounced at the L4- 5 level which demonstrates moderate central canal and moderate bilateral neural foraminal narrowing. ACT 112: Negative or not required by law. Electronically signed by: Onesimo Berry M.D. 07/14/2021 9:11 AM Hip/Pelvis X-Ray 07/13/21 14:31 XR hip TANISHA 2v w pelvis CLINICAL HISTORY: Bilateral hip pain. Avascular necrosis. COMPARISON STUDY: CT pelvis 07/12/2021. FINDINGS: There is again noted mild flattening of the bilateral superior femoral heads with associated chronic subchondral fractures. There is also subchondral sclerosis, cystic change and mild subchondral lucency at the femoral heads. This is consistent with avascular necrosis with superimposed osteoarthritis. No definite acute fracture or dislocation within the pelvis or hips. IMPRESSION: Redemonstration of the bilateral femoral head avascular necrosis with superimposed osteoarthritis. Mild flattening of the femoral heads consistent with chronic subchondral fractures ACT 112: Negative or not required by law. Electronically signed by: Onesimo Berry M.D. 07/13/2021 3:[address] 07/16/21 17:36 CT tib/fib RT wo con CLINICAL HISTORY: leg cellulitis, r/o abscess, fluid collection TECHNIQUE: Multidetector row helical CT of the right knee was performed without intravenous contrast. Coronal and sagittal reformations were obtained. Automated dose lowering techniques and/or adjustment according to patient size were utilized for this examination. CT DOSE: 235.28 mGy.cm Comparison: None available at the time of this dictation. FINDINGS: The osseous structures are without fracture or dislocation. The joint spaces are maintained. No joint effusion is seen. Skin thickening is seen in the posterior calf. No drainable fluid collection is seen. IMPRESSION: Skin thickening in the posterior medial calf. No drainable fluid collection is seen. ACT 112: Negative or not required by law. Electronically signed by: Chai Fulton M.D. 07/16/2021 7:50 PM Venous Doppler Study 07/26/21 09:37 BILATERAL LOWER EXTREMITY VENOUS DOPPLER CLINICAL HISTORY: Bilateral leg pain. COMPARISON STUDY: No previous studies for comparison. TECHNIQUE: Sonography of the deep venous system of the bilateral lower extremities was performed. Compression and augmentation were evaluated. FINDINGS: The bilateral common femoral, superficial femoral and popliteal veins were compressible. Augmentation was normal. Flow was shown within the deep calf vessels. IMPRESSION: No evidence of deep venous thrombus within the bilateral lower extremities. ACT 112: Negative or not required by law. Electronically signed by: Moreno Fernandes M.D. 07/26/2021 11:46 AM Hospital Course (1) Lower extremity weakness: (2) Avascular necrosis of bones of both hips: (3) Unable to walk: (4) Hypotension: (5) Anxiety: LE weakness likely secondary to spinal stenosis and avascular necrosis of the hips bilaterally after roasterman history of steroids in the past. - Generally bilateral hip replacement would be the treatment, however, she is high risk from a pulmonary status for an elective surgery. Ortho is planning to attempt bilateral steroid injections. Goal in patient's mind is to be in less pain, with questionable ability to move. - US LE today negative for DVT. - PDMP reviewed- she was on oxy before. She was having significant pain despite norco, hence medications changed 07/21. - Continue multimodal pain management- continue oxy q4hr prn, tylenol q6hr, continue lidoderm patch, cymbalta, celebrex, lyrica. S/p medrol dosepak. PDMP reviewed- prescription for oxy, lyrica, celebrex, lidoderm patch, xanax provided. - Spoke with ortho, radiology and pain management- unable to get steroid injection inhouse but can do as OP. - Spoke to ortho Juan today- Appointment set up with [facility] for 08/02/21 1 pm for paperwork and they will schedule hip injection after that. SNF to arrange for transportation. MRI cervical spine: 1. Degenerative changes from C4 through C7 as described above resulting in moderate to severe central canal narrowing and bilateral neural foraminal narrowing. This is most pronounced at the C5-C6 level which demonstrates an associated 3 mm focal central disc protrusion. 2. Mild reversal the normal lordotic curvature likely due to long-standing degenerative change. 3. Mild levoscoliosis. MRI lumbar spine 1. Motion artifact. 2. No fractures or subluxation within the lumbar spine. 3. Degenerative changes within the lower lumbar spine most pronounced at the L4- 5 level which demonstrates moderate central canal and moderate bilateral neural foraminal narrowing. Hypotension: BP soft but stable, likely due to narcotics. Toprol cut down. COPD with chronic hypoxic respiratory failure: chronic, stable and not in exacerbation. On chronic oxygen with baseline 2L NC - continue usual Pulmicort, formoterol nebulization, azithromycin 3 times a week Anxiety: uses Xanax PRN qHS for insomnia/anxiety. Cymbalta daily. Caution with using this and narcotics 2/2 polypharmacy in patient with respiratory issues at baseline. Constipation- Had good bowel movement with mag citrate yesterday. Recommend continuing bowel regimen. Patient is getting discharged to SNF. She is stable for discharge. Total Time Total Time Spent Total Time Spent (In Minutes): 40 Discharge Plan Discharge Items Patient Disposition: Transfer Residential Fac Reason For Visit: ANEMIC Discharge Diagnosis: Ambulatory dysfunction, bilateral hip pain, avascular necrosis of bilateral femur Activity: Per Instructions section Non-emergency contact: Primary Care Provider Call non-emergency contact if: you have any medication questions, your symptoms worsen, your pain is not controlled and you have a fever Follow-up/Referrals: Grey Arrington DO [Primary Care Provider] - Diet: Regular Addtl Attending Provider Instructions: It is possible to have your hip problem fixed with surgery but they can not do it because of your high risk for surgery given your lung condition. We tried to get the steroid injection here in the hospital but they were not able to do it Plan is to get the steroid injection as outpatient in the office. You have appointment for paperwork with orthopedic Asael Naylor at 1 pm on August 02. They will then schedule you an appointment for the hip injection. Your rehab would arrange the transportation. Pending Studies at Discharge: No Stand-Alone Forms: [facility] Skilled Items Patient informed of condition?: Yes DNR: Yes Discharge Level of Care: Skilled Communicable Disease: No Discharge Prognosis: Stable Lines: None Urinary Catheter: No Medications and DC Order Prescriptions: New celecoxib [Celebrex] 100 mg Capsule 100 mg PO BID Qty: 60 RF: 0 lidocaine 5 % Adhesive Patch,Medicated 1 patch transdermal QAM Qty: 30 RF: 0 oxycodone 10 mg tablet 10 mg PO Q4H PRN (Reason: pain) Qty: 30 RF: 0 Continued arformoterol [Brovana] 15 mcg/2 mL solution for nebulization 2 ml inhalation BID RF: 0 meclizine 25 mg tablet 25 mg PO BID RF: 0 albuterol sulfate 90 mcg/actuation HFA aerosol inhaler 2 inh inhalation QID PRN (Reason: shortness of breath or wheezing) Qty: 1 RF: 5 budesonide 0.25 mg/2 mL suspension for nebulization 0.25 mg inhalation BID Qty: 120 RF: 3 azithromycin 250 mg tablet 250 mg PO MONWEDFRI Qty: 12 RF: 0 atorvastatin 10 mg tablet 10 mg PO .Take 1 tablet daily RF: 0 (DME) Oxygen Home Liters Per Minute See Rx Instructions .ROUTE .MEDSUPPLY Qty: 1 RF: 0 (DME) Wheelchair (Manual) Device See Rx Instructions .ROUTE .MEDSUPPLY Qty: 1 RF: 0 furosemide [Lasix] 20 mg tablet 20 mg PO DAILY PRN (Reason: Edema) RF: 0 loratadine 10 mg tablet 10 mg PO DAILY RF: 0 duloxetine 60 mg capsule,delayed release(DR/EC) 60 mg PO DAILY Qty: 30 RF: 0 pregabalin 150 mg capsule 150 mg PO BID 15 Days Qty: 30 RF: 0 Changed metoprolol succinate 25 mg tablet extended release 24 hr 12.5 mg PO DAILY Qty: 0 RF: 0 alprazolam 0.5 mg tablet 0.5 mg PO HS Qty: 15 RF: 0 Discontinued alprazolam 0.5 mg tablet 0.5 mg PO DAILY RF: 0 Discharge Orders: Discharge Order (Routine); Ordered 07/26/21 Ordered By: Satnam Quinn Admission Data Admit Date/Time: 07/12/21 17:40 Attending Provider: Satnam Quinn Admit Provider: Satnam Quinn Primary Care Provider: Grey Arrington Other Providers: Satnam Quinn ; Louie King ; [place] ; Isma Rodney ; David Bennett ; Thelma Garza Other Interventions: Discharge Summary Assessment (RN) Last Done: 07/26/21 16:31
== END 2021-07-26 17:41 | DRG 554 ==
LOC: ED 15:28 → 3N 17:40 → SUATTDRO 17:40 → 3N 21:51
DX: Z74.01 Bed confinement status; M16.0 Bilateral primary osteoarthritis of hip; J44.9 Chronic obstructive pulmonary disease, unspecified; F41.9 Anxiety disorder, unspecified; R53.1 Weakness; I25.10 Atherosclerotic heart disease of native coronary artery without angina pectoris; R26.2 Difficulty in walking, not elsewhere classified; D64.9 Anemia, unspecified; I25.2 Old myocardial infarction; J96.12 Chronic respiratory failure with hypercapnia; M48.02 Spinal stenosis, cervical region; H10.9 Unspecified conjunctivitis; J96.11 Chronic respiratory failure with hypoxia; M48.061 Spinal stenosis, lumbar region without neurogenic claudication; Z87.891 Personal history of nicotine dependence; K59.00 Constipation, unspecified; Z88.8 Allergy status to other drugs, medicaments and biological substances; Z88.0 Allergy status to penicillin; M87.9 Osteonecrosis, unspecified